=== PATIENT | male | born 1950 | race Caucasian/White ===

== ENCOUNTER 2018-01-28 09:00 | Inpatient (IN) ==
[2018-01-28] MEDS ORDERED: *HR* Dextrose 50 % in Water (Syg) 50 ML SYRINGE IVP ONE (09:14)
[2018-01-28] MEDS ORDERED: 0.9 % Sodium Chloride 1,000 ML IVC SCH (09:15)
[2018-01-28] MEDS ORDERED: *HR* Dextrose 50 % in Water (Syg) 50 ML SYRINGE ONE (09:16)
[2018-01-28] MEDS ORDERED: Tdap (Boostrix) Vaccine 0.5 ML SYRINGE IM ONE (09:18)
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
[2018-01-28 10:50] LABS: Basophils % 0.3 %; Eosinophils # 0.1 K/mcL (0.0-0.6); Eosinophils % 0.3 %; Hematocrit 43.8 % (37.5-50.1); Hemoglobin 13.8 g/dL (12.9-16.9); Lymphocytes # 0.5 K/mcL (0.6-4.6); Mean Corpuscular HGB Conc 31.5 g/dL (31.6-35.5); Mean Corpuscular Volume 85.5 fL (83.0-100.0); Mean Platelet Volume 9.3 fL (9.4-12.4); Monocytes # 1.1 K/mcL (0.0-1.3); Monocytes % 7.2 %; Neutrophils # 13.2 K/mcL (1.6-8.9); Platelet Count 283 K/mcL (140-400); Red Blood Count 5.12 M/mcL (4.19-5.50); Red Cell Distribution Width 14.7 % (11.5-14.5); Segmented Neutrophils % 88.2 %
[2018-01-28 10:56] LABS: Albumin 3.4 g/dL (3.5-5.7); Albumin/Globulin Ratio 0.9 (1.1-2.2); Bilirubin,Direct 0.1 mg/dL (0.0-0.2); Bilirubin,Indirect 0.2 mg/dL (0.0-1.2); Bilirubin,Total 0.3 mg/dL (0.3-1.0); Calcium 9.6 mg/dL (8.6-10.3); Globulin 3.6 g/dL (2.4-3.5); Potassium 3.9 mEq/L (3.5-5.1)
[2018-01-28 11:17] LABS: Thyroid Stimulating Hormone 2.945 mcIU/mL (0.340-5.600)
[2018-01-28 11:35] LABS: Bilirubin,Urine Negative (Negative); Blood,Urine Negative (Negative); Clarity,Urine Clear (Clear); Color,Urine Yellow (Yellow); Glucose,Urine (UA) Normal (Normal); Ketones,Urine Negative (Negative); Leukocyte Esterase,Urine Negative (Negative); Nitrite,Urine Negative (Negative); PH,Urine 6.5 pH Units (5.0-8.0); Protein,Urine 100 mg/dL (Neg-Trace); Specific Gravity,Urine 1.015 (1.010-1.025); Urobilinogen,Urine Normal (Normal)
[2018-01-28 11:38] LABS: Bacteria,Urine None Seen per hpf (None-Few); Hyaline Casts,Urine None Seen per lpf (None-Few); Squamous Epithelial Cell,Urine Few per lpf (None-Few); WBC,Urine 0-3 per hpf (0-3)
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
[2018-01-28] MEDS ORDERED: Dextrose Gel 15 GM/37.5 ML TUBE PO ONE (13:20)
[2018-01-28] MEDS ORDERED: D5% in Water 1,000 ML IVC PRN (13:27)
[2018-01-28] MEDS ORDERED: Dextrose Gel 15 GM/37.5 ML TUBE PO PRN ×2 (13:27)
[2018-01-28] MEDS ORDERED: *HR* Dextrose 50 % in Water (Syg) 50 ML SYRINGE IVP PRN (13:27)
[2018-01-28] MEDS ORDERED: Naloxone 0.4 MG/ML INJ IVP PRN (13:29)
[2018-01-28] MEDS ORDERED: Acetaminophen 325 MG TABLET PO PRN (13:29)
[2018-01-28] MEDS ORDERED: Ondansetron 4 MG/2 ML VIAL IVP PRN (13:29)
[2018-01-28] MEDS: 0.9 % Sodium Chloride 1,000 ML IVC SCH ×4 (13:35→15:49)
[2018-01-28] MEDS ORDERED: D5% in 0.9% NACL 1,000 ML IVC SCH (14:00)
[2018-01-28] MEDS: Insulin LISPRO 300 UNITS/3 ML VIAL SQ SCH ×2 (17:04→21:24)
[2018-01-28] MEDS: cloNIDine HCl 0.1 MG TABLET PO SCH (21:31)
[2018-01-28] MEDS: NEFAZODONE HCL 200 MG PO SCH (21:32)
[2018-01-29 05:46] LABS: Basophils # 0.1 K/mcL (0.0-0.2); Basophils % 0.7 %; Eosinophils # 0.2 K/mcL (0.0-0.6); Eosinophils % 3.1 %; Hematocrit 42.6 % (37.5-50.1); Hemoglobin 13.1 g/dL (12.9-16.9); Immature Granulocytes % 0.6 % (0-4); Immature Platelets 1.2 % (1.1-6.1); Lymphocytes # 0.9 K/mcL (0.6-4.6); Lymphocytes % 13.1 %; Mean Corpuscular HGB Conc 30.8 g/dL (31.6-35.5); Mean Corpuscular Hemoglobin 27.2 pg (28.0-33.3); Mean Corpuscular Volume 88.4 fL (83.0-100.0); Mean Platelet Volume 9.3 fL (9.4-12.4); Monocytes # 0.7 K/mcL (0.0-1.3); Monocytes % 10.7 %; Neutrophils # 4.8 K/mcL (1.6-8.9); Platelet Count 291 K/mcL (140-400); Red Blood Count 4.82 M/mcL (4.19-5.50); Segmented Neutrophils % 71.8 %
[2018-01-29 06:06] LABS: Calcium 9.1 mg/dL (8.6-10.3); Magnesium 1.5 mg/dL (1.6-2.6); Potassium 3.8 mEq/L (3.5-5.1)
[2018-01-29] MEDS: Levothyroxine 25 MCG TABLET PO SCH (06:45)
[2018-01-29] MEDS ORDERED: Insulin LISPRO 300 UNITS/3 ML VIAL SQ SCH (08:00)
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
[2018-01-29] MEDS: Insulin LISPRO 300 UNITS/3 ML VIAL SQ SCH ×6 (08:18→22:04)
[2018-01-29] MEDS: NEFAZODONE HCL 200 MG PO SCH (08:21)
[2018-01-29] MEDS: cloNIDine HCl 0.1 MG TABLET PO SCH ×2 (08:21→22:03)
[2018-01-29] MEDS: Nicotine 21 MG PATCH.TD24 TD SCH (08:21)
[2018-01-29] MEDS: amLODIPine 5 MG TABLET PO SCH (10:28)
[2018-01-29] MEDS: *HR* OxyCODONE/APAP 5/325 TABLET PO PRN (16:51)
[2018-01-30] MEDS: NEFAZODONE HCL 200 MG PO SCH ×3 (02:54→20:20)
[2018-01-30] MEDS: Levothyroxine 25 MCG TABLET PO SCH (05:32)
[2018-01-30] MEDS: *HR* OxyCODONE/APAP 5/325 TABLET PO PRN (05:43)
[2018-01-30 07:45] LABS: Calcium 9.3 mg/dL (8.6-10.3); Potassium 3.5 mEq/L (3.5-5.1)
[2018-01-30 08:24] LABS: Hematocrit 41.9 % (37.5-50.1); Hemoglobin 12.9 g/dL (12.9-16.9); Mean Corpuscular HGB Conc 30.8 g/dL (31.6-35.5); Mean Corpuscular Volume 87.8 fL (83.0-100.0); Mean Platelet Volume 9.1 fL (9.4-12.4); Platelet Count 283 K/mcL (140-400); Red Blood Count 4.77 M/mcL (4.19-5.50)
[2018-01-30] MEDS: Nicotine 21 MG PATCH.TD24 TD SCH (08:56)
[2018-01-30] MEDS: Insulin LISPRO 300 UNITS/3 ML VIAL SQ SCH ×7 (08:56→21:35)
[2018-01-30] MEDS: amLODIPine 5 MG TABLET PO SCH (08:56)
[2018-01-30] MEDS: cloNIDine HCl 0.1 MG TABLET PO SCH ×2 (08:57→20:20)
[2018-01-30] MEDS ORDERED: *HR* OxyCODONE/APAP 5/325 TABLET PO PRN (10:08)
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
[2018-01-30] MEDS ORDERED: Aminoglycoside Consult 1 EACH MC ONE (12:00)
--- NOTE | 2018-01-30 13:31 | Spinal Consult Note ---
Date of Encounter: 01/30/18 Time of Encounter: 13:29 Assessment and Plan (1) C7 cervical fracture Current Visit: Yes Status: Acute On exam he is a lying comfortably in bed with a cervical collar in place. Afebrile vital signs stable. He has minimal tenderness to palpation of the cervical spine. He fires all upper and lower extremity groups with good strength. He has a negative Rachana sign. He is neurovascularly intact with regard to his bilateral upper extremities. He has no clonus. CT scan of the cervical spine reveals a minimally displaced left C7 pedicle fracture extending into the lamina. There is no evidence of instability. The patient's cervical and thoracic CTs are consistent with diffuse idiopathic skeletal hyperostosis. Impression: 1) diffuse idiopathic skeletal hyperostosis 2) stable C7 vertebral fracture 3) associated rib fractures Plan: We will have the patient continue in a cervical collar. He should follow- up in the spine Center with me in 2 weeks to assess his clinical progress. I suggest rehabilitation for this patient on an outpatient basis either home health or [facility] facility. I would consider referral to neurology on an outpatient patient for his frequent falls. Should order in-house physical therapy for mobilization in brace, strengthening, and gait training. Qualifiers: Encounter type: initial encounter Fracture type: closed Fracture morphology: unspecified fracture morphology Fracture alignment: nondisplaced Qualified Code(s): S12.601A - Unspecified nondisplaced fracture of seventh cervical vertebra, initial encounter for closed fracture History of Present Illness Chief complaint: Multiple falls, C7 fracture, rib fractures HPI: Mr. Silveira is a 67 year old male Who has a history of frequent falls over the past year including one in the past week. He is unsure what precipitates the falls. He complains of some rib pain but no significant neck pain or radicular symptoms at this time. He denies any fevers, chills, photophobia, new onset weakness or radicular symptoms. According to his supervisor cook house and the patient he has been fairly inactive and poorly mobilizing. We are asked to see regarding management of C7 fracture. Past Med Surg Social Fam HX - Past Medical History Medical history: diabetes, hypertension, thyroid disease Psychiatric history: no psych history - Social History Smoking Status: Current every day smoker Smokeless Tobacco Status: No Alcohol use: none Drug use: none Medications and Allergies Atorvastatin [Lipitor] 10 mg PO HS 01/28/18 [History] Clorazepate Dipotassium [Tranxene T-Tab] 7.5 mg PO BID 01/28/18 [History] Cyclobenzaprine [Flexeril] 10 mg PO BID 01/28/18 [History] Insulin ASPART [NovoLOG] 40 unit SQ TIDWM 01/28/18 [History] Insulin Glargine [Lantus] 30 unit SQ BID 01/28/18 [History] Levothyroxine Sodium [Levo-T] 25 mcg PO DAILY 01/28/18 [History] Nefazodone HCl [Nefazodone HCl] 200 mg PO BID 01/28/18 [History] Pioglitazone HCl [Pioglitazone HCl] 30 mg PO DAILY 01/28/18 [History] Triamterene/HCTZ 37.5/25mg [Dyazide] 1 tab PO DAILY 01/28/18 [History] Zolpidem [Ambien] 10 mg PO HS 01/28/18 [History] cloNIDine HCl [Clonidine HCl] 0.2 mg PO BID 01/28/18 [History] 3 Allergy/AdvReac Type Severity Reaction Status Date / Time No Known Allergies Allergy Verified 12/04/17 19:26 Results - Labs Result Diagrams: 01/30/18 06:05 01/30/18 06:05 Labs: Abnormal lab results MCH 27.0 pg (28.0-33.3) L 01/30/18 06:05 MCHC 30.8 g/dL (31.6-35.5) L 01/30/18 06:05 RDW 15.0 % (11.5-14.5) H 01/30/18 06:05 MPV 9.1 fL (9.4-12.4) L 01/30/18 06:05 BUN 37 mg/dL (8-23) H 01/30/18 06:05 Creatinine 2.75 mg/dL (0.70-1.30) H 01/30/18 06:05 Est GFR ( Amer) 28 (> 60) L 01/30/18 06:05 Est GFR (Non-Af Amer) 23 (> 60) L 01/30/18 06:05 Glucose 118 mg/dL (70-105) H 01/30/18 06:05 POC Glucose 133 (58-89) H 01/29/18 11:56 Magnesium 1.5 mg/dL (1.6-2.6) L 01/29/18 05:05 Troponin I 0.04 ng/mL (< 0.04) H* 01/28/18 19:49 Albumin 3.4 g/dL (3.5-5.7) L 01/28/18 10:33 Globulin 3.6 g/dL (2.4-3.5) H 01/28/18 10:33 Albumin/Globulin Ratio 0.9 (1.1-2.2) L 01/28/18 10:33 Urine Protein 100 mg/dL (Neg-Trace) H 01/28/18 11:24 Urine Microscopic RBC 3-5 per hpf (0-3) H 01/28/18 11:24 H & H 01/30/18 Range/Units 06:05 Hgb 12.9 (12.9-16.9) g/dL Hct 41.9 (37.5-50.1) % All other labs normal. Consult Discharge Plan - Plan Referrals: Tima Bryant MD [Primary Care Provider] - Nata Kang CNP [Family Provider] -
[2018-01-30 18:32] LABS: Hemoglobin A1C 5.5 %
[2018-01-30] MEDS ORDERED: *HR* Metoprolol 5 MG/5 ML VIAL IVP ONE (19:04)
[2018-01-30 22:50] LABS: Acinetobacter baumannii by PCR Not Detected (Not Detect); Candida albicans by PCR Not Detected (Not Detect); Candida glabrata by PCR Not Detected (Not Detect); Candida krusei by PCR Not Detected (Not Detect); Candida parapsilosis by PCR Not Detected (Not Detect); Candida tropicalis by PCR Not Detected (Not Detect); Enterococcus by PCR Not Detected (Not Detect); Escherichia coli by PCR Not Detected (Not Detect); Klebsiella oxytoca by PCR Not Detected (Not Detect); Klebsiella pneumoniae by PCR Not Detected (Not Detect); Pseudomonas aeruginosa by PCR Not Detected (Not Detect); Serratia marcescens by PCR Not Detected (Not Detect); Staphylococcus aureus by PCR Not Detected (Not Detect); Streptococcus agalactiae(B)PCR Not Detected (Not Detect); Streptococcus by PCR Not Detected (Not Detect); Streptococcus pneumoniae PCR Not Detected (Not Detect); Streptococcus pyogenes (A) PCR Not Detected (Not Detect); blaKPC Carbapenem-Resist Gene Not Detected (Not Detect); mecA Methicillin-Resist Gene Not Detected (Not Detect); vanA/B Vancomycin-Resist Genes Not Detected (Not Detect)
--- NOTE | 2018-01-30 23:09 | Event Note ---
Date of Encounter: 01/30/18 Time of Encounter: 23:05 Patient's microbiology report returned from ordered blood cultures and is positive for gram positive Cocci. IVPB Vancomycin w/pharmacy dosing ordered to begin tonight at 23:45. Pharmacy to dose d/t pts. current renal dysfunction. Will adjust abx coverage based on final culture and sensitivity report. Continue to monitor pt. and f/u labs.
[2018-01-31] MEDS: Levothyroxine 25 MCG TABLET PO SCH (05:21)
[2018-01-31 05:32] LABS: Calcium 9.6 mg/dL (8.6-10.3); Potassium 4.8 mEq/L (3.5-5.1)
[2018-01-31] MEDS: Insulin LISPRO 300 UNITS/3 ML VIAL SQ SCH ×7 (08:09→21:08)
[2018-01-31] MEDS: Nicotine 21 MG PATCH.TD24 TD SCH (08:10)
[2018-01-31] MEDS: cloNIDine HCl 0.1 MG TABLET PO SCH ×2 (08:10→21:10)
[2018-01-31] MEDS: amLODIPine 5 MG TABLET PO SCH (08:10)
[2018-01-31] MEDS: NEFAZODONE HCL 200 MG PO SCH ×2 (08:11→21:08)
[2018-01-31] MEDS: cefTRIAXone 2,000 MG in Water for inj. (sterile) 20 ML 20 ML IVP SCH (11:41)
[2018-01-31] MEDS ORDERED: *HR* Metoprolol 5 MG/5 ML VIAL IVP ONE (17:13)
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
--- NOTE | 2018-01-31 19:59 | Electrocardiograph Report ---
[address] [address] Test Date: 2018-01-28 Pat Name: Oren Silveira Department: 103 Room: 2A63 Gender: M Systems Program Manager: BREANNA : 1950 Requested By: Oral Barton Order Number: [id number] Reading MD: Sandra Pressley Measurements Intervals [place] Rate: 89 P: -5 MO: 188 QRS: -17 QRSD: 94 T: 36 QT: 388 QTc: 435 Interpretive Statements SINUS RHYTHM WITH OCCASIONAL VENTRICULAR PREMATURE COMPLEXES WITH OCCASIONAL SUPRAVENTRICULAR PREMATURE COMPLEXES Electronically Signed On 01-31-2018 19:57:42 EST by Sandra Pressley
[2018-02-01] MEDS: Levothyroxine 25 MCG TABLET PO SCH (06:08)
[2018-02-01 07:53] LABS: Calcium 9.7 mg/dL (8.6-10.3); Potassium 3.3 mEq/L (3.5-5.1)
[2018-02-01] MEDS: Nicotine 21 MG PATCH.TD24 TD SCH (08:18)
[2018-02-01] MEDS: amLODIPine 5 MG TABLET PO SCH (08:19)
[2018-02-01] MEDS: Insulin LISPRO 300 UNITS/3 ML VIAL SQ SCH ×7 (08:19→22:45)
[2018-02-01] MEDS: cloNIDine HCl 0.1 MG TABLET PO SCH ×2 (08:19→22:45)
[2018-02-01] MEDS: NEFAZODONE HCL 200 MG PO SCH ×2 (08:20→22:46)
[2018-02-01 08:29] LABS: Basophils % 0.4 %; Eosinophils # 0.2 K/mcL (0.0-0.6); Eosinophils % 1.9 %; Immature Granulocytes % 0.5 % (0-4); Lymphocytes % 12.8 %; Mean Corpuscular HGB Conc 32.2 g/dL (31.6-35.5); Mean Corpuscular Hemoglobin 27.2 pg (28.0-33.3); Mean Corpuscular Volume 84.4 fL (83.0-100.0); Mean Platelet Volume 9.1 fL (9.4-12.4); Monocytes # 0.7 K/mcL (0.0-1.3); Monocytes % 9.1 %; Neutrophils # 6.1 K/mcL (1.6-8.9); Platelet Count 278 K/mcL (140-400); Red Blood Count 5.33 M/mcL (4.19-5.50); Red Cell Distribution Width 14.9 % (11.5-14.5); Segmented Neutrophils % 75.3 %
[2018-02-01] MEDS ORDERED: Potassium Chloride Elixir 20 MEQ/15 ML UDC PO ONE (08:48)
[2018-02-01 09:33] LABS: Hemoglobin 14.5 g/dL (12.9-16.9)
[2018-02-01] MEDS: cefTRIAXone 2,000 MG in Water for inj. (sterile) 20 ML 20 ML IVP SCH (11:54)
--- NOTE | 2018-02-01 19:39 | Electrocardiograph Report ---
[place] [address] Test Date: 2018-01-31 Pat Name: Oren Silveira Department: 112 Room: 2A63 Gender: M Gastroenterology Manager: : 1950 Requested By: Ray Lim Order Number: [id number] Reading MD: Jay Rene MD Measurements Intervals [place] Rate: 89 P: NE: 0 QRS: -18 QRSD: 94 T: 21 QT: 360 QTc: 407 Interpretive Statements SINUR RHYTHM W FREQUENT PAC BASELINE ARTIFACT Electronically Signed On 02-01-2018 19:37:43 EST by Jay Rene MD
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
[2018-02-02] MEDS: Levothyroxine 25 MCG TABLET PO SCH (05:12)
[2018-02-02 05:46] LABS: Calcium 9.5 mg/dL (8.6-10.3); Magnesium 1.8 mg/dL (1.6-2.6); Potassium 4.3 mEq/L (3.5-5.1)
[2018-02-02] MEDS: Insulin LISPRO 300 UNITS/3 ML VIAL SQ SCH ×6 (08:28→16:13)
[2018-02-02] MEDS: cefTRIAXone 2,000 MG in Water for inj. (sterile) 20 ML 20 ML IVP SCH (11:28)
[2018-02-02] MEDS: Nicotine 21 MG PATCH.TD24 TD SCH (11:30)
[2018-02-02] MEDS: amLODIPine 5 MG TABLET PO SCH (11:58)
[2018-02-02] MEDS: cloNIDine HCl 0.1 MG TABLET PO SCH (11:58)
[2018-02-02 13:13] VITALS: BP 134/75
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
--- NOTE | 2018-02-03 14:39 | Electrocardiograph Report ---
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
--- NOTE | 2018-02-03 15:26 | Electrocardiograph Report ---
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
--- NOTE | 2018-02-03 16:10 | Electrocardiograph Report ---
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
== END 2018-02-02 17:51 | DRG 184 ==
LOC: 2ANU 09:00 → EMEROO 09:00 → 2ANU 12:16 → SUATTDRO 13:29
PROVIDERS: ADMIT Internal Medicine; ATTEND Internal Medicine

== ENCOUNTER 2019-07-02 06:13 | Inpatient (IN) ==
[2019-07-02] MEDS ORDERED: *HR* LORazepam 2 MG/ML VIAL IM ONE ×2 (06:51→10:56)
--- NOTE | 2019-07-02 06:51 | Emergency Department Note ---
Disposition Clinical Impression: Fall with injury Qualifiers: Encounter type: initial encounter Qualified Code(s): W19.XXXA - Unspecified fall, initial encounter Disposition: Still a Patient Condition: Serious Time of Disposition: 07:11 Fall HPI - General Stated Complaint: fall Time Seen by Provider: 07/02/19 06:22 Source: patient, EMS Mode of arrival: EMS Limitations: altered mental status Nursing Notes Reviewed: Yes Vital Signs Reviewed: Yes - History of Present Illness HPI Narrative: Patient is a 68-year-old male past medical history of COPD, diabetes, dementia, blindness presenting for 2 day history of increasing falls. EMS states that they have not of the patient's house frequently in the past for similar presentations the patient has always refused transport. EMS notes a however this time the patient was not alert to place or time and so he was transported for his own well-being to the hospital. Patient was unable to name the year, the president or his location to EMS. Upon initial evaluation hospital the patient seems to be mildly agitated and is tangential to conversation. The patient is unable to say his location or the year, he denies any pain any nausea vomiting states that he does not want to be here and that he is not going to pay for any treatment. Pt Subjective Complaint: fall Onset (ago): day(s) Fall From: standing Fall Witnessed: yes Place Fall Occurred: home Loss of Consciousness: none Prolonged Down Time?: no Symptoms Prior to Fall: none Context: tripped/slipped Location of injury: head - Related Data Home Medications Medication Instructions Recorded Confirmed Atorvastatin [Lipitor] 20 mg PO DAILY 01/28/18 05/25/19 Insulin ASPART [NovoLOG] 35 unit SQ BIDWM 01/28/18 02/26/19 Levothyroxine Sodium [Levo-T] 25 mcg PO DAILY 01/28/18 02/26/19 Fluticasone Propionate Nasal 2 spray IN BID 02/26/19 02/26/19 [Flonase] Insulin Glargine [Lantus] 16 units SQ BID 02/26/19 02/26/19 Pioglitazone HCl 30 mg PO DAILY 02/26/19 02/26/19 Brimonidine Tartrate/Timolol 5 ml OP 05/25/19 [Combigan 0.2%-0.5% Eye Drops] Brimonidine Tartrate/Timolol 5 ml OP DAILY 05/25/19 05/25/19 [Combigan 0.2%-0.5% Eye Drops] Brinzolamide 1% [Azopt] 1 drop LEFT EYE BID 05/25/19 05/25/19 Levothyroxine [Synthroid] 25 mcg PO 0630 05/25/19 05/25/19 Sertraline [Zoloft] 50 mg PO DAILY 05/25/19 05/25/19 Previous Rx's Medication Instructions Recorded Insulin LISPRO [HumaLOG] 0 units SQ HS vial 03/05/19 Insulin LISPRO [HumaLOG] 0 units SQ TIDAC vial 03/05/19 Nicotine Patch [Nicoderm] 21 mg TD DAILY patch.td24 03/05/19 Ondansetron [Zofran] 8 mg IVP Q6HR PRN vial 03/05/19 Vitamin B Complex/Vit C/Vit E 1 each PO DAILY tablet 03/05/19 [Stresstab] Ascorbic Acid [Vitamin C] 500 mg PO 0630 #30 tablet 05/29/19 Carvedilol [Coreg] 25 mg PO BID #60 tablet 05/29/19 Ferrous Sulfate 325 mg PO 0630 #30 tablet 05/29/19 Quetiapine Fumarate [Seroquel] 100 mg PO HS #45 tablet 05/29/19 amLODIPine [Norvasc] 5 mg PO DAILY #30 tablet 05/29/19 cloNIDine HCl [CloNIDine HCl] 0.1 mg PO Q8H #90 tablet 05/29/19 traZODone [TraZODone] 50 mg PO HS #30 tablet 05/29/19 Allergies Allergy/AdvReac Type Severity Reaction Status Date / Time Buspirone Allergy Intermediate Confusion Verified 04/21/19 15:13 venlafaxine AdvReac Confusion Verified 04/21/19 15:15 Review of Systems: Patient denies any pain, chest pain shortness of breath nausea vomiting any trauma at this time. Patient may not be a reliable source as he appears to be confused and is tangential questioning. Limitations: ROS unobtainable due to patients medical condition Fall PMH - Past Medical History Medical history: Reports: CHF, COPD, diabetes, hypertension, renal disease, thyroid disease Surgical history: Reports: appendectomy Psychiatric history: Reports: anxiety, depression - Social History Smoking Status: Former smoker Alcohol use: Reports: none Drug use: Reports: none Physical Exam Constitutional: Patient appears to be confused and mildly agitated, no overt signs of trauma Neuro: GCS 15, no overt focal neurological deficits Head: Atraumatic, normocephalic Eyes: Patient is noted to be blind, external ocular muscles intact pupils appear to be equal round reactive to light. There is no scleral icterus or conjunctival injection. Neck: Trachea midline without deviation. Anterior neck is supple without swelling. *Chest: Symmetric chest wall rise *Heart: Cardiac rhythm and rate are regular with S1 and S2 , no S3 or S4 appreciated, no murmurs, gallops, rubs, or clicks. *Lungs: Lungs are clear to auscultation bilaterally, without accessory muscle use or prolonged expiratory phase. No wheezes, rhonchi or stridor appreciated. Abdomen: Abdomen is flat, soft to palpation, normal bowel sounds. No abdominal bruit auscultated. Non-distended, non-rigid, no organomegaly, no ascites appreciated. No pulsatile mass, no tenderness or guarding to palpation in all four quadrants, no rebound Extremities: 1+ pitting edema noted to bilateral lower extremities, there is a rapid noted to the right lower extremity which is stated to be due to a pressure ulcer. Pulses/motor intact in extremities. Psychiatric exam: Patient appears confused and mildly agitated. Integumentary: warm, dry, intact, normal color. No rash, cyanosis, diaphoresis, erythema, or pallor - General Limitations: altered mental status General appearance: alert, other (He was confused, maybe baseline dementia) Course Course Narrative: Patient noted to be alert person only he does not have capacity for medical decision making at this point. He is refusing all further care. We will give 2 mg of IM Ativan at this time in order to help manage the patient's agitation. Proceed with plan of care to include basic labs, CT scan of the head chest x-ray EKG/old EKG. Vital Signs Temperature 98.8 F 07/02/19 06:16 Pulse Rate 64 07/02/19 06:16 Respiratory Rate 16 07/02/19 06:16 Blood Pressure 114/84 07/02/19 06:16 O2 Sat by Pulse Oximetry 99 07/02/19 06:16 Temperature 98.8 F 07/02/19 06:16 Pulse Rate 64 08/05/19 06:16 Respiratory Rate 16 07/02/19 06:16 Blood Pressure 114/84 07/02/19 06:16 O2 Sat by Pulse Oximetry 99 07/02/19 06:16 Oxygen Delivery Oxygen Delivery Room Air Fall - MDM Narrative Medical decision making narrative: Patient care signed out to attending physician Dr. Trinidad the end of my shift. Please see documentation by this physician for further evaluation, management and final disposition. The patient's hemodynamics stable time of transfer of care. - EKG Data EKG results narrative: The patients EKG shows a atrial fibrillation at a rate of 61 beats per minute, a QRS duration of 91 milliseconds, a QT/QTc interval of 423 / 427 milliseconds respectively. There are no significant ST segment elevations, depressions, pathologic Q waves, abnormal T-wave inversions, nor any other signs of acute ischemic change. This EKG that was performed today is generally consistent in morphology with prior EKG that was performed on 03/02/2019.
--- NOTE | 2019-07-02 07:07 | Emergency Department Note ---
Disposition Clinical Impression: History of diabetes mellitus, Frail elderly, History of psychosis, Visual field defect of left eye, Renal failure, Acute kidney injury, Confusion, Elevated troponin, Anemia, Brain lesion, Leg erythema Altered mental status Qualifiers: Altered mental status type: unspecified Qualified Code(s): R41.82 - Altered mental status, unspecified Disposition: Admitted As Inpatient Condition: Serious Referrals: NONE,PCP [Primary Care Provider] - Forms: ED Satisfaction Letter Time of Disposition: 11:21 General Adult HPI - General Chief complaint: ED Fall Stated complaint: fall Time Seen by Provider: 07/02/19 06:22 Source: patient, EMS Mode of arrival: EMS Limitations: altered mental status - History of Present Illness HPI Narrative: Patient presents with acute confusion, transferred to ut, multiple falls reported: On my questioning the patient denies pain. He denies head pain neck pain back pain chest pain or abdominal pain. No upper or lower extremity pain or injury. He has had no difficulty moving the arms or legs independently. The patient states he has been admitted to the hospital recently. He states he takes insulin and is diabetic. The patient has no specific complaints. See initial H&P for detail. Pain Scale: 0 - Related Data Home Medications Medication Instructions Recorded Confirmed Atorvastatin [Lipitor] 20 mg PO DAILY 01/28/18 05/25/19 Insulin ASPART [NovoLOG] 35 unit SQ BIDWM 01/28/18 02/26/19 Levothyroxine Sodium [Levo-T] 25 mcg PO DAILY 01/28/18 02/26/19 Fluticasone Propionate Nasal 2 spray IN BID 02/26/19 02/26/19 [Flonase] Insulin Glargine [Lantus] 16 units SQ BID 02/26/19 02/26/19 Pioglitazone HCl 30 mg PO DAILY 02/26/19 02/26/19 Brimonidine Tartrate/Timolol 5 ml OP 05/25/19 [Combigan 0.2%-0.5% Eye Drops] Brimonidine Tartrate/Timolol 5 ml OP DAILY 05/25/19 05/25/19 [Combigan 0.2%-0.5% Eye Drops] Brinzolamide 1% [Azopt] 1 drop LEFT EYE BID 05/25/19 05/25/19 Levothyroxine [Synthroid] 25 mcg PO 0605/25/1919 Sertraline [Zoloft] 50 mg PO DAILY 05/25/19 05/25/19 Previous Rx's Medication Instructions Recorded Insulin LISPRO [HumaLOG] 0 units SQ HS vial 03/05/19 Insulin LISPRO [HumaLOG] 0 units SQ TIDAC vial 03/05/19 Nicotine Patch [Nicoderm] 21 mg TD DAILY patch.td24 03/05/19 Ondansetron [Zofran] 8 mg IVP Q6HR PRN vial 03/05/19 Vitamin B Complex/Vit C/Vit E 1 each PO DAILY tablet 03/05/19 [Stresstab] Ascorbic Acid [Vitamin C] 500 mg PO 0630 #30 tablet 05/29/19 Carvedilol [Coreg] 25 mg PO BID #60 tablet 05/29/19 Ferrous Sulfate 325 mg PO 0630 #30 tablet 05/29/19 Quetiapine Fumarate [Seroquel] 100 mg PO HS #45 tablet 05/29/19 amLODIPine [Norvasc] 5 mg PO DAILY #30 tablet 05/29/19 cloNIDine HCl [CloNIDine HCl] 0.1 mg PO Q8H #90 tablet 05/29/19 traZODone [TraZODone] 50 mg PO HS #30 tablet 05/29/19 Allergies Allergy/AdvReac Type Severity Reaction Status Date / Time Buspirone Allergy Intermediate Confusion Verified 04/21/19 15:13 venlafaxine AdvReac Confusion Verified 04/21/19 15:15 All systems ED: reviewed and negative except as stated. Past Medical History - Past Medical History Medical history: Reports: CHF, COPD, diabetes, hypertension, renal disease, thyroid disease Surgical history: Reports: appendectomy Psychiatric history: Reports: anxiety, depression - Social History Smoking Status: Former smoker Smokeless Tobacco Status: No Alcohol use: Reports: none Drug use: Reports: none Physical Exam - General Limitations: altered mental status, other (The patient is unable to identify location. He is agitated and poorly cooperative.) General appearance: alert, in no apparent distress - Head Head exam: atraumatic, normocephalic, normal inspection - Eye Eye exam: Present: other (Chronic left offkilter defects noted, the right eye is generally responsive and pupil reactive, he is able to visualize 2 fingers when held up.) - ENT ENT exam: normal exam, normal oropharynx, mucous membranes moist, TM's normal bilaterally, normal external ear exam - Neck Neck exam: Present: normal inspection, full ROM, trachea midline. Absent: tenderness - Chest Chest inspection: Present: normal inspection, symmetric chest wall rise. Absent: tenderness - Respiratory Respiratory exam: Present: normal lung sounds bilaterally. Absent: respiratory distress, prolonged expiratory phase - Cardiovascular Cardiovascular exam: Present: regular rate, normal rhythm, normal heart sounds - Abdominal Exam Abdominal exam: Present: soft, Non-Tender, normal bowel sounds, other (An area of focal bruising/hematoma, the patient states this is where he injects insulin. ). Absent: tenderness, distention, guarding, rebound, rigidity - Extremities Exam Extremities exam: Present: full ROM, normal capillary refill, other (The patie nt's right leg was wrapped, undressed the area, there is some chronic skin discoloration without valentin ulcer or cellulitic change. All 4 extremities are warm and well-perfused supple without evidence of significant trauma.). Absent: tenderness, pedal edema, joint swelling, calf tenderness - Expanded Lower Extremity Exam Lower leg exam: Absent: Homans' sign Neurovascular/Tendon exam: Present: normal capillary refill. Absent: motor deficit, sensory deficit, tendon deficit, extremity cold to touch, pallor - Back Exam Back exam: Present: normal inspection, full ROM. Absent: tenderness, CVA tenderness (R), CVA tenderness (L), vertebral tenderness - Neurological Exam Neurological exam: Present: alert, CN II-XII intact, other (Chronic left ocular defect noted, the patient is not oriented to place, he tells me his at [facility].). Absent: oriented X3, motor sensory deficit - Psychiatric Psychiatric exam: Present: agitated - Skin Skin exam: Present: warm, dry, intact, normal color Course Course Narrative: The patient has a history of psychosis, he has been agitated emergency department and uncooperative. He was initially given Ativan in the emergency department. Haldol and benztropine ordered in order to provide for patient c omfort and safety. Vital Signs Temperature 98.8 F 07/02/19 06:16 Pulse Rate 64 07/02/19 06:16 Respiratory Rate 16 07/02/19 06:16 Blood Pressure 114/84 07/02/19 06:16 O2 Sat by Pulse Oximetry 99 07/02/19 06:16 Temperature 98.8 F 07/02/19 06:16 Pulse Rate 67 07/02/19 07:51 Respiratory Rate 18 07/02/19 07:51 Blood Pressure 153/73 07/02/19 07:51 O2 Sat by Pulse Oximetry 97 07/02/19 07:51 Oxygen Delivery Oxygen Delivery Room Air Medical Decision Making - MDM Narrative Medical decision making narrative: The patient is elderly, he has a history of diabetes and psychosis as well as chronic renal failure. He appears to have an element of acute kidney injury and is no longer oriented to place. He appears to be confused. He was somewhat agitated on arrival was given Ativan. Increasing agitation was noted and Haldol and benztropine were administered to protect the patient from harming himself or other people. Based on the patient's age, abnormal laboratory studies and multiple medical comorbidities including psychiatric disease with acute confusion, I thought it would be appropriate to admit the patient the hospital. The patient is incapable of personal medical decision making at this time. I do not believe it is safe to discharge the patient home. IV fluid was given. The patient was continually monitored in the emergency department. Troponin minimally elevated, he does not complain of chest pain. Aspirin ordered. I discussed the case with the hospitalist on-call who has accepted the patient to their care. - Lab Data Lab results reviewed: Yes I reviewed the patient's lab results. Result diagrams: 07/02/19 08:38 07/02/19 08:38 Lab Results 07/02/19 07/02/19 07/02/19 Range/Units 07:51 07:51 08:38 WBC 8.1 (4.3-11.1) K/mcL RBC 3.28 L (4.19-5.50) M/mcL Hgb 8.7 L (12.9-16.9) g/dL Hct 28.1 L (37.5-50.1) % MCV 85.7 (83.0-100.0) fL MCH 26.5 L (28.0-33.3) pg MCHC 31.0 L (31.6-35.5) g/dL RDW 16.2 H (11.5-14.5) % Plt Count 209 (140-400) K/mcL MPV 8.9 L (9.4-12.4) fL Immature Gran % 1.6 (0-4) % Seg Neutrophils % 76.1 % Lymphocytes % 12.5 % Monocytes % 8.9 % Eosinophils % 0.7 % Basophils % 0.2 % Neutrophils # 6.1 (1.6-8.9) K/mcL Lymphocytes # 1.0 (0.6-4.6) K/mcL Monocytes # 0.7 (0.0-1.3) K/mcL Eosinophils # 0.1 (0.0-0.6) K/mcL Basophils # 0.0 (0.0-0.2) K/mcL PT (9.4-12.1) Seconds INR APTT (26.0-36.0) Seconds Sodium (136-145) mEq/L Potassium (3.5-5.1) mEq/L Chloride (98-107) mEq/L Carbon Dioxide (23-29) mEq/L BUN (8-23) mg/dL Creatinine (0.70-1.30) mg/dL Est GFR ( Amer) (> 60) Est GFR (Non-Af Amer) (> 60) BUN/Creatinine Ratio (6-26) Glucose (70-105) mg/dL Calculated Osmolality (280-300) Lactic Acid (0.5-2.2) mmol/L Calcium (8.6-10.3) mg/dL Total Bilirubin (0.3-1.0) mg/dL Direct Bilirubin (0.0-0.2) mg/dL Indirect Bilirubin (0.0-1.2) mg/dL AST (13-39) Units/L ALT (7-52) Units/L Alkaline Phosphatase (34-104) Units/L Ammonia (16-53) mcmol/L Troponin I (< 0.04) ng/mL C-Reactive Protein (Less than 10) mg/L Serum Total Protein (6.4-8.9) g/dL Albumin (3.5-5.7) g/dL Globulin (2.4-3.5) g/dL Albumin/Globulin Ratio (1.1-2.2) Urine Color Yellow (Yellow) Urine Clarity Clear (Clear) Urine pH 7.0 (5.0-8.0) pH Units Ur Specific [place] 1.014 (1.010-1.025) Urine Protein >=300 H (Neg-Trace) mg/dL Urine Glucose (UA) 250 H (Normal) mg/dL Urine Ketones Negative (Negative) mg/dL Urine Blood Negative (Negative) Urine Nitrite Negative (Negative) Urine Bilirubin Negative (Negative) Urine Urobilinogen Normal (Normal) mg/dL Ur Leukocyte Esterase Negative (Negative) Urine Microscopic RBC 0-3 (0-3) per hpf Urine Microscopic WBC 0-3 (0-3) per hpf Ur Squamous Epith Cells Many H (None-Few) per lpf Urine Bacteria None Seen (None-Few) per hpf Hyaline Casts None Seen (None-Few) per lpf Ur Culture Indicated? NO (NO) Salicylates (15.0-30.0) mg/dL Urine Opiates Screen Negative (Tbglaf=925) ng/mL Ur Buprenorphine Scrn Negative (Cutoff=5) ng/mL Acetaminophen (10-20) mcg/mL Ur Barbiturates Screen Negative (Aqbqgn=033) ng/mL Ur Phencyclidine Scrn Negative (Cutoff=25) ng/mL Ur Amphetamines Screen Negative (Rmkcga=0897) ng/mL U Benzodiazepines Scrn Negative (Xhsgyg=348) ng/mL Urine Cocaine Screen Negative (Cutoff= 300) ng/mL U Marijuana (THC) Screen Negative (Cutoff = 50) ng/mL Ur Drug Screen Interp See Below Ethyl Alcohol (Less than 10) mg/dL 07/02/19 07/02/19 07/02/19 Range/Units 08:38 08:38 08:38 WBC (4.3-11.1) K/mcL RBC (4.19-5.50) M/mcL Hgb (12.9-16.9) g/dL Hct (37.5-50.1) % MCV (83.0-100.0) fL MCH (28.0-33.3) pg MCHC (31.6-35.5) g/dL RDW (11.5-14.5) % Plt Count (140-400) K/mcL MPV (9.4-12.4) fL Immature Gran % (0-4) % Seg Neutrophils % % Lymphocytes % % Monocytes % % Eosinophils % % Basophils % % Neutrophils # (1.6-8.9) K/mcL Lymphocytes # (0.6-4.6) K/mcL Monocytes # (0.0-1.3) K/mcL Eosinophils # (0.0-0.6) K/mcL Basophils # (0.0-0.2) K/mcL PT 10.8 (9.4-12.1) Seconds INR 1.0 APTT 28.6 (26.0-36.0) Seconds Sodium 135 L (136-145) mEq/L Potassium 4.3 (3.5-5.1) mEq/L Chloride 108 H (98-107) mEq/L Carbon Dioxide 23 (23-29) mEq/L BUN 37 H (8-23) mg/dL Creatinine 4.16 H (0.70-1.30) mg/dL Est GFR ( Amer) 17 L (> 60) Est GFR (Non-Af Amer) 14 L (> 60) BUN/Creatinine Ratio 9 (6-26) Glucose 193 H (70-105) mg/dL Calculated Osmolality 294 (280-300) Lactic Acid (0.5-2.2) mmol/L Calcium 8.7 (8.6-10.3) mg/dL Total Bilirubin 0.2 L (0.3-1.0) mg/dL Direct Bilirubin 0.0 (0.0-0.2) mg/dL Indirect Bilirubin 0.2 (0.0-1.2) mg/dL AST 12 L (13-39) Units/L ALT 12 (7-52) Units/L Alkaline Phosphatase 88 (34-104) Units/L Ammonia 30 (16-53) mcmol/L Troponin I (< 0.04) ng/mL C-Reactive Protein (Less than 10) mg/L Serum Total Protein 5.7 L (6.4-8.9) g/dL Albumin 3.0 L (3.5-5.7) g/dL Globulin 2.7 (2.4-3.5) g/dL Albumin/Globulin Ratio 1.1 (1.1-2.2) Urine Color (Yellow) Urine Clarity (Clear) Urine pH (5.0-8.0) pH Units Ur Specific [place] (1.010-1.025) Urine Protein (Neg-Trace) mg/dL Urine Glucose (UA) (Normal) mg/dL Urine Ketones (Negative) mg/dL Urine Blood (Negative) Urine Nitrite (Negative) Urine Bilirubin (Negative) Urine Urobilinogen (Normal) mg/dL Ur Leukocyte Esterase (Negative) Urine Microscopic RBC (0-3) per hpf Urine Microscopic WBC (0-3) per hpf Ur Squamous Epith Cells (None-Few) per lpf Urine Bacteria (None-Few) per hpf Hyaline Casts (None-Few) per lpf Ur Culture Indicated? (NO) Salicylates (15.0-30.0) mg/dL Urine Opiates Screen (Haelok=229) ng/mL Ur Buprenorphine Scrn (Cutoff=5) ng/mL Acetaminophen (10-20) mcg/mL Ur Barbiturates Screen (Okqgrl=089) ng/mL Ur Phencyclidine Scrn (Cutoff=25) ng/mL Ur Amphetamines Screen (Nvqymm=8478) ng/mL U Benzodiazepines Scrn (Iqxelm=220) ng/mL Urine Cocaine Screen (Cutoff= 300) ng/mL U Marijuana (THC) Screen (Cutoff = 50) ng/mL Ur Drug Screen Interp Ethyl Alcohol (Less than 10) mg/dL 07/02/19 07/02/19 Range/Units 08:38 08:38 WBC (4.3-11.1) K/mcL RBC (4.19-5.50) M/mcL Hgb (12.9-16.9) g/dL Hct (37.5-50.1) % MCV (83.0-100.0) fL MCH (28.0-33.3) pg MCHC (31.6-35.5) g/dL RDW (11.5-14.5) % Plt Count (140-400) K/mcL MPV (9.4-12.4) fL Immature Gran % (0-4) % Seg Neutrophils % % Lymphocytes % % Monocytes % % Eosinophils % % Basophils % % Neutrophils # (1.6-8.9) K/mcL Lymphocytes # (0.6-4.6) K/mcL Monocytes # (0.0-1.3) K/mcL Eosinophils # (0.0-0.6) K/mcL Basophils # (0.0-0.2) K/mcL PT (9.4-12.1) Seconds INR APTT (26.0-36.0) Seconds Sodium (136-145) mEq/L Potassium (3.5-5.1) mEq/L Chloride (98-107) mEq/L Carbon Dioxide (23-29) mEq/L BUN (8-23) mg/dL Creatinine (0.70-1.30) mg/dL Est GFR ( Amer) (> 60) Est GFR (Non-Af Amer) (> 60) BUN/Creatinine Ratio (6-26) Glucose (70-105) mg/dL Calculated Osmolality (280-300) Lactic Acid 0.7 (0.5-2.2) mmol/L Calcium (8.6-10.3) mg/dL Total Bilirubin (0.3-1.0) mg/dL Direct Bilirubin (0.0-0.2) mg/dL Indirect Bilirubin (0.0-1.2) mg/dL AST (13-39) Units/L ALT (7-52) Units/L Alkaline Phosphatase (34-104) Units/L Ammonia (16-53) mcmol/L Troponin I 0.05 H* (< 0.04) ng/mL C-Reactive Protein 9 (Less than 10) mg/L Serum Total Protein (6.4-8.9) g/dL Albumin (3.5-5.7) g/dL Globulin (2.4-3.5) g/dL Albumin/Globulin Ratio (1.1-2.2) Urine Color (Yellow) Urine Clarity (Clear) Urine pH (5.0-8.0) pH Units Ur Specific [place] (1.010-1.025) Urine Protein (Neg-Trace) mg/dL Urine Glucose (UA) (Normal) mg/dL Urine Ketones (Negative) mg/dL Urine Blood (Negative) Urine Nitrite (Negative) Urine Bilirubin (Negative) Urine Urobilinogen (Normal) mg/dL Ur Leukocyte Esterase (Negative) Urine Microscopic RBC (0-3) per hpf Urine Microscopic WBC (0-3) per hpf Ur Squamous Epith Cells (None-Few) per lpf Urine Bacteria (None-Few) per hpf Hyaline Casts (None-Few) per lpf Ur Culture Indicated? (NO) Salicylates < 2.5 L (15.0-30.0) mg/dL Urine Opiates Screen (Ggisvp=508) ng/mL Ur Buprenorphine Scrn (Cutoff=5) ng/mL Acetaminophen < 10 L (10-20) mcg/mL Ur Barbiturates Screen (Xridko=988) ng/mL Ur Phencyclidine Scrn (Cutoff=25) ng/mL Ur Amphetamines Screen (Mmcnms=7433) ng/mL U Benzodiazepines Scrn (Oliyjh=167) ng/mL Urine Cocaine Screen (Cutoff= 300) ng/mL U Marijuana (THC) Screen (Cutoff = 50) ng/mL Ur Drug Screen Interp Ethyl Alcohol < 10 (Less than 10) mg/dL - Radiology Data Radiology results reviewed: Yes I reviewed the patient's radiology results.
[2019-07-02] MEDS ORDERED: 0.9 % Sodium Chloride 1,000 ML IVC ONE (07:08)
--- NOTE | 2019-07-02 07:33 | Emergency Department Note ---
Disposition Clinical Impression: Fall with injury Qualifiers: Encounter type: initial encounter Qualified Code(s): W19.XXXA - Unspecified fall, initial encounter Altered mental status Qualifiers: Altered mental status type: unspecified Qualified Code(s): R41.82 - Altered mental status, unspecified Disposition: Still a Patient Condition: Serious Forms: ED Satisfaction Letter Time of Disposition: 07:30 General Adult HPI - General Chief complaint: ED Fall Stated complaint: fall Time Seen by Provider: 07/02/19 06:22 Source: patient, EMS Mode of arrival: EMS Limitations: altered mental status Nursing Notes Reviewed: Yes Vital Signs Reviewed: Yes - History of Present Illness Pain Scale: 0 - Related Data Home Medications Medication Instructions Recorded Confirmed Atorvastatin [Lipitor] 20 mg PO DAILY 01/28/18 05/25/19 Insulin ASPART [NovoLOG] 35 unit SQ BIDWM 01/28/18 02/26/19 Levothyroxine Sodium [Levo-T] 25 mcg PO DAILY 01/28/18 02/26/19 Fluticasone Propionate Nasal 2 spray IN BID 02/26/19 02/26/19 [Flonase] Insulin Glargine [Lantus] 16 units SQ BID 02/26/19 02/26/19 Pioglitazone HCl 30 mg PO DAILY 02/26/19 02/26/19 Brimonidine Tartrate/Timolol 5 ml OP 05/25/19 [Combigan 0.2%-0.5% Eye Drops] Brimonidine Tartrate/Timolol 5 ml OP DAILY 05/25/19 05/25/19 [Combigan 0.2%-0.5% Eye Drops] Brinzolamide 1% [Azopt] 1 drop LEFT EYE BID 05/25/19 05/25/19 Levothyroxine [Synthroid] 25 mcg PO 0630 05/25/19 05/25/19 Sertraline [Zoloft] 50 mg PO DAILY 05/25/19 05/25/19 Previous Rx's Medication Instructions Recorded Insulin LISPRO [HumaLOG] 0 units SQ HS vial 03/05/19 Insulin LISPRO [HumaLOG] 0 units SQ TIDAC vial 03/05/19 Nicotine Patch [Nicoderm] 21 mg TD DAILY patch.td24 03/05/19 Ondansetron [Zofran] 8 mg IVP Q6HR PRN vial 03/05/19 Vitamin B Complex/Vit C/Vit E 1 each PO DAILY tablet 03/05/19 [Stresstab] Ascorbic Acid [Vitamin C] 500 mg PO 0630 #30 tablet 05/29/19 Carvedilol [Coreg] 25 mg PO BID #60 tablet 05/29/19 Ferrous Sulfate 325 mg PO 0630 #30 tablet 05/29/19 Quetiapine Fumarate [Seroquel] 100 mg PO HS #45 tablet 05/29/19 amLODIPine [Norvasc] 5 mg PO DAILY #30 tablet 05/29/19 cloNIDine HCl [CloNIDine HCl] 0.1 mg PO Q8H #90 tablet 05/29/19 traZODone [TraZODone] 50 mg PO HS #30 tablet 05/29/19 Allergies Allergy/AdvReac Type Severity Reaction Status Date / Time Buspirone Allergy Intermediate Confusion Verified 04/21/19 15:13 venlafaxine AdvReac Confusion Verified 04/21/19 15:15 Past Medical History - Past Medical History Medical history: Reports: CHF, COPD, diabetes, hypertension, renal disease, thyroid disease Surgical history: Reports: appendectomy Psychiatric history: Reports: anxiety, depression - Social History Smoking Status: Former smoker Smokeless Tobacco Status: No Alcohol use: Reports: none Drug use: Reports: none Physical Exam - General Limitations: altered mental status General appearance: alert, other (He was confused, maybe baseline dementia) Course Vital Signs Temperature 98.8 F 07/02/19 06:16 Pulse Rate 64 07/02/19 06:16 Respiratory Rate 16 07/02/19 06:16 Blood Pressure 114/84 07/02/19 06:16 O2 Sat by Pulse Oximetry 99 07/02/19 06:16 Temperature 98.8 F 07/02/19 06:16 Pulse Rate 64 07/02/19 06:16 Respiratory Rate 16 07/02/19 06:16 Blood Pressure 114/84 07/02/19 06:16 O2 Sat by Pulse Oximetry 99 07/02/19 06:16 Oxygen Delivery Oxygen Delivery Room Air Attestation Statement - Attestation Attestation: ICrow MD, personally evaluated this patient and discussed their management with the resident physician. I reviewed the resident's note and agree with the documented findings, medical decision making, and plan of care. I reviewed the residents documentation and agree with the residents assessment and plan of care. I have personally had face to face time with the patient. I personally supervised and was present for the cabello/critical portions of the following procedures completed by the resident: EKG interpretation. 68-year-old male presents to the emergency department from home by EMS with complaint of increasingly frequent falls recently. Apparently also has had increased confusion. Here in the emergency department the patient is alert but is obviously confused and disoriented. He is refusing IVs or blood draw or x- rays. I do not feel at this point that patient has capacity to refuse treatment as he is obviously altered. He denies any pain or injury however I am unsure how reliable his history is. On examination patient is a well-developed obese elderly male in no acute distress. He is alert but confused and disoriented. No cyanosis or diaphoresis. Breath sounds are equal bilaterally. Regular. Abdomen is soft with no obvious tenderness. EKG shows atrial fibrillation with ventricular rate of 61. No significant ST segment elevation or depression. Patient was given Ativan 2 mg IM to see if this will make him more cooperative. At morning shift change she is [facility], Dr. Gonzalez.
[2019-07-02 08:12] LABS: Bilirubin,Urine Negative (Negative); Blood,Urine Negative (Negative); Clarity,Urine Clear (Clear); Color,Urine Yellow (Yellow); Glucose,Urine (UA) 250 mg/dL (Normal); Ketones,Urine Negative (Negative); Leukocyte Esterase,Urine Negative (Negative); Nitrite,Urine Negative (Negative); Protein,Urine >=300 mg/dL (Neg-Trace); Specific Gravity,Urine 1.014 (1.010-1.025); Urobilinogen,Urine Normal (Normal)
[2019-07-02 08:15] LABS: Bacteria,Urine None Seen per hpf (None-Few); Hyaline Casts,Urine None Seen per lpf (None-Few); RBC,Urine 0-3 per hpf (0-3); Squamous Epithelial Cell,Urine Many per lpf (None-Few); WBC,Urine 0-3 per hpf (0-3)
[2019-07-02 08:32] LABS: Amphetamine Screen,Urine Negative ng/mL (Cutoff=1000); Barbiturate Screen,Urine Negative ng/mL (Cutoff=200); Benzodiazepines Screen,Urine Negative ng/mL (Cutoff=200); Cannabinoid Screen,Urine Negative ng/mL (Cutoff = 50); Cocaine Screen,Urine Negative ng/mL (Cutoff= 300); Opiate Screen,Urine Negative ng/mL (Cutoff=300); Phencyclidine Screen,Urine Negative ng/mL (Cutoff=25)
[2019-07-02 08:49] LABS: Basophils % 0.2 %; Eosinophils # 0.1 K/mcL (0.0-0.6); Eosinophils % 0.7 %; Hematocrit 28.1 % (37.5-50.1); Hemoglobin 8.7 g/dL (12.9-16.9); Immature Granulocytes % 1.6 % (0-4); Lymphocytes % 12.5 %; Mean Corpuscular Hemoglobin 26.5 pg (28.0-33.3); Mean Corpuscular Volume 85.7 fL (83.0-100.0); Mean Platelet Volume 8.9 fL (9.4-12.4); Monocytes # 0.7 K/mcL (0.0-1.3); Monocytes % 8.9 %; Neutrophils # 6.1 K/mcL (1.6-8.9); Platelet Count 209 K/mcL (140-400); Red Blood Count 3.28 M/mcL (4.19-5.50); Red Cell Distribution Width 16.2 % (11.5-14.5); Segmented Neutrophils % 76.1 %; White Blood Count 8.1 K/mcL (4.3-11.1)
[2019-07-02 08:57] LABS: Prothrombin Time 10.8 Seconds (9.4-12.1)
[2019-07-02 09:09] LABS: Albumin/Globulin Ratio 1.1 (1.1-2.2); Bilirubin,Indirect 0.2 mg/dL (0.0-1.2); Bilirubin,Total 0.2 mg/dL (0.3-1.0); Calcium 8.7 mg/dL (8.6-10.3); Globulin 2.7 g/dL (2.4-3.5); Potassium 4.3 mEq/L (3.5-5.1); Total Protein 5.7 g/dL (6.4-8.9)
[2019-07-02] MEDS ORDERED: Haloperidol Lactate 5 MG/ML VIAL IM ONE ×2 (09:26→11:47)
[2019-07-02 09:33] LABS: Acetaminophen < 10 mcg/mL (10-20); Ethanol < 10 mg/dL (Less than 10); Salicylate < 2.5 mg/dL (15.0-30.0); Troponin I 0.05 ng/mL (< 0.04)
[2019-07-02 09:46] LABS: Activated Partial Thrombo Time 28.6 Seconds (26.0-36.0)
[2019-07-02 10:57] LABS: C-Reactive Protein 9 mg/L (Less than 10)
[2019-07-02] MEDS ORDERED: Aspirin 325 MG TABLET PO ONE (11:18)
[2019-07-02] MEDS ORDERED: *HR* HYDROcodone/Acet 5/325 mg TABLET PO PRN (12:48)
[2019-07-02] MEDS ORDERED: Naloxone 0.4 MG/ML INJ IVP PRN (12:48)
[2019-07-02] MEDS ORDERED: Acetaminophen 325 MG TABLET PO PRN (12:48)
[2019-07-02] MEDS ORDERED: *HR* OxyCODONE Immed Rel 5 MG TABLET PO PRN (12:48)
[2019-07-02] MEDS ORDERED: Ondansetron 4 MG/2 ML VIAL IVP PRN (12:48)
[2019-07-02] MEDS ORDERED: Haloperidol Lactate 5 MG/ML VIAL IVP PRN ×2 (12:50→16:18)
[2019-07-02] MEDS ORDERED: Lidocaine -MPF 1% 5 ML AMPUL INFILT ONE (13:39)
--- NOTE | 2019-07-02 15:01 | Electrocardiograph Report ---
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
[2019-07-02] MEDS: 0.9 % Sodium Chloride 1,000 ML IVC SCH ×2 (15:21→23:40)
[2019-07-02] MEDS ORDERED: D5% in Water 1,000 ML IVC PRN (15:44)
[2019-07-02] MEDS ORDERED: *HR* Dextrose 50 % in Water (Syg) 50 ML SYRINGE IVP PRN (15:44)
[2019-07-02] MEDS ORDERED: Dextrose Gel 15 GM/37.5 ML TUBE PO PRN ×2 (15:44)
--- NOTE | 2019-07-02 15:59 | Internal Med History&Physical ---
Date of Encounter: 07/02/19 Time of Encounter: 15:56 Internal Medicine - H&P: HPI Chief complaint: AMS Admitted From: Emergency Dept Plans for Post Hospital Care: Home History of present illness: Mr. Silveira is a 68 year old male with known PMH of HTN, HLD, DM2, CKD-4, COPD, Legally blind in Left eye, Dementia and psychiatric problem ( possible bipolar / behavioral problem ) pt who was on Seroquel, Zoloft and Trazodone pt was brought into ER by family through EMS stating pt is more confused and agitated lately. In the ER he was given Cogentin, Haldol and Ativan. Now he is sleeping. Unable to get any history from pt. I did talk to pt's daughter who provided me all the history. Apparently pt has similar episode 4 weeks ago and got admitted at [facility]. pt is on Seroquel at home, when he is non compliance / stop taking this medication he gets confused and agitated. Past Med Surg Social Fam HX - Past Medical History Medical history: CHF, COPD, diabetes, hypertension, renal disease, thyroid disease Psychiatric history: anxiety, depression - Past Surgical History Surgical History: appendectomy Additional surgical history: Right Elbow, pancreas removed. - Social History Smoking Status: Former smoker Smokeless Tobacco Status: No Alcohol use: none Drug use: none - Family History Mother Family Member Ethnicity: Non- Living Status: Hx Family Cardiac Disorders: Yes Hx Family Respiratory Disorders: Yes Hx Family Cancer: Yes Hx Family GI Disorders: No Hx Family Endocrine Disorder: Yes Hx Family Neuromuscular Disorders: No Hx Family Neurologic Disorders: No Hx Family HEENT Disorders: No Hx Family Autoimmune Disorders: No Father Adopted: No Family Member Ethnicity: Non- Living Status: Hx Family Cardiac Disorders: Yes Hx Family Respiratory Disorders: Yes Hx Family Cancer: No Hx Family GI Disorders: No Hx Family Endocrine Disorder: Yes Hx Family Neuromuscular Disorders: No Hx Family Neurologic Disorders: No Hx Family HEENT Disorders: No Hx Family Autoimmune Disorders: No Internal Medicine - H&P: Meds Atorvastatin [Lipitor] 20 mg PO DAILY 01/28/18 [History] Insulin ASPART [NovoLOG] 35 unit SQ BIDWM 01/28/18 [History] Insulin Glargine [Lantus] 16 units SQ BID 02/26/19 [History] Brimonidine Tartrate/Timolol [Combigan 0.2%-0.5% Eye Drops] 1 drop RIGHT EYE DAILY 05/25/19 [History] Levothyroxine [Synthroid] 25 mcg PO 0630 05/25/19 [History] Sertraline [Zoloft] 50 mg PO DAILY 05/25/19 [History] Ascorbic Acid [Vitamin C] 500 mg PO 0630 #30 tablet 05/29/19 [Rx] Ferrous Sulfate 325 mg PO 0630 #30 tablet 05/29/19 [Rx] amLODIPine [Norvasc] 5 mg PO DAILY #30 tablet 05/29/19 [Rx] cloNIDine HCl [CloNIDine HCl] 0.1 mg PO Q8H #90 tablet 05/29/19 [Rx] Donepezil [Aricept] 5 mg PO HS 07/02/19 [History] Ipratropium/Albuterol Neb [Duoneb] 3 ml IH Q6HR PRN 07/02/19 [History] Quetiapine Fumarate [Seroquel] 100 mg PO HS 07/02/19 [History] Sevelamer [Renvela] 800 mg PO TIDWM 07/02/19 [History] Tamsulosin HCl [Flomax] 0.4 mg PO DAILY 07/02/19 [History] Travoprost [Travatan Z] 1 drop RIGHT EYE HS 07/02/19 [History] Zolpidem [Ambien] 10 mg PO HS 07/02/19 [History] predniSONE [PredniSONE] 20 mg PO DAILY 07/02/19 [History] traZODone [TraZODone] 50 - 100 mg PO HS PRN 07/02/19 [History] Allergy/AdvReac Type Severity Reaction Status Date / Time Buspirone Allergy Intermediate Confusion Verified 04/21/19 15:13 venlafaxine AdvReac Confusion Verified 04/21/19 15:15 All Systems PM: A 10-system review of systems was performed and is negative for pertinent findings except as documented above in the HPI. Review of systems: All the systems are reviewed everything is benign except the systems and symptoms I mentioned in the history of present illness..Unable to do a through ROS since pt is not able to communicate verbally at this moment.. - Constitutional Vitals: Temp Pulse Resp BP Pulse Ox 98.4 F 75 16 189/85 94 08/05/19 12:59 07/02/19 12:59 07/02/19 12:59 07/02/19 12:59 07/02/19 12:59 General appearance: Present: A&O X 0 (sleepy and sedative), no acute distress Exam: a - Head Head exam: Present: atraumatic, normal inspection - Eye Additional comments: legally blind in left eye - Neck Neck exam general surgery: Present: supple - Respiratory Respiratory exam: Present: decreased breath sounds. Absent: rales, respiratory distress, rhonchi, wheezes - Cardiovascular Cardiovascular exam: Present: RRR, +S1, +S2. Absent: tachycardia - GI/Abdominal GI/Abdominal exam: Present: normal bowel sounds, soft. Absent: rebound, rigid, tenderness - Extremities Exam Extremities exam: Present: normal inspection, pedal edema (Left leg edema). Absent: calf tenderness, tenderness - Back Exam Back exam: Absent: CVA tenderness (L), CVA tenderness (R) - Neurological Exam Additional comments: Sleepy and sedative. Unable to perform thorough neuro exam - Psychiatric Additional comments: sleepy and sedative - Skin Skin exam: Absent: rash Internal Med - H&P Results - Labs CBC & Chem 7: 07/02/19 08:38 07/02/19 08:38 Labs: Short CBC 07/02/19 Range/Units 08:38 WBC 8.1 (4.3-11.1) K/mcL Hgb 8.7 L (12.9-16.9) g/dL Hct 28.1 L (37.5-50.1) % Plt Count 209 (140-400) K/mcL Neutrophils # 6.1 (1.6-8.9) K/mcL BMP 07/02/19 08:38 Sodium 135 L Potassium 4.3 Chloride 108 H Carbon Dioxide 23 BUN 37 H Creatinine 4.16 H Glucose 193 H Calcium 8.7 Cardiac Enzymes 07/02/19 Range/Units 08:38 Troponin I 0.05 H* (< 0.04) ng/mL Liver Function 07/02/19 Range/Units 08:38 Total Bilirubin 0.2 L (0.3-1.0) mg/dL Direct Bilirubin 0.0 (0.0-0.2) mg/dL AST 12 L (13-39) Units/L ALT 12 (7-52) Units/L Alkaline Phosphatase 88 (34-104) Units/L Albumin 3.0 L (3.5-5.7) g/dL Urine 07/02/19 Range/Units 07:51 Urine Color Yellow (Yellow) Urine Clarity Clear (Clear) Urine pH 7.0 (5.0-8.0) pH Units Ur Specific Bow 1.014 (1.010-1.025) Urine Protein >=300 H (Neg-Trace) mg/dL Urine Glucose (UA) 250 H (Normal) mg/dL - Impressions ITS Impressions Chest X-Ray 07/02/19 06:22 IMPRESSION: Stable chest. D/ / Guillaume Borges MD / Guillaume Borges MD Interpreting Provider: Guillaume Borges MD Head CT 07/02/19 06:22 IMPRESSION: No acute intracranial abnormality. Stable left temporal likely arachnoid cyst. D/ / Arianna Broussard MD / Arianna Broussard MD Interpreting Provider: Arianna Broussard MD - Assessment and Plan (1) Altered mental status Current Visit: Yes Status: Acute Assessment and plan: Place the pt into tele for observation Could be multifactorial with Acute metabolic encephalopathy + Psychiatric problem cont symptomatic and supportive care will use Haldol PRN for agitation on tele on continuous pulse oxy meter consulted Psych for further eval May need In pt psych admission for few days to adjust his psych medications resumed home med Seroquel and Zoloft Qualifiers: Altered mental status type: unspecified Qualified Code(s): R41.82 - Altered mental status, unspecified (2) Acute psychosis Current Visit: Yes Status: Acute Assessment and plan: Plan as above (3) Acute kidney injury superimposed on chronic kidney disease Current Visit: Yes Status: Acute Assessment and plan: Started on IV hydration Ordered Retroperitoneal renal US Consulted Nephro for further eval He does need close f/u with Nephro as an out pt at this stage of his CKD-4 Avoid nephro toxins (4) Elevated troponin Current Visit: Yes Status: Acute Assessment and plan: due to demand ischemia with TONY on CKD-4 Will tend on trop for now (5) History of psychosis Current Visit: Yes Status: Chronic (6) Diabetes mellitus Current Visit: No Status: Chronic Assessment and plan: onn ADA diet Will check HbA1C on ISS + Levemir Qualifiers: Diabetes mellitus type: type 2 Diabetes mellitus ferry terminal agent insulin use: with ferry terminal agent use Diabetes mellitus complication status: with kidney complications Diabetes mellitus complication detail: with chronic kidney disease Chronic kidney disease stage: stage 4 (severe) Qualified Code(s): E11.22 - Type 2 diabetes mellitus with diabetic chronic kidney disease; N18.4 - Chronic kidney disease, stage 4 (severe); Z79.4 - watermaster (current) use of insulin (7) Visual field defect of left eye Current Visit: Yes Status: Chronic (8) Hyperlipidemia Current Visit: No Status: Chronic Assessment and plan: resumed home med Qualifiers: Hyperlipidemia type: unspecified Qualified Code(s): E78.5 - Hyperlipidemia, unspecified (9) Hypertension Current Visit: No Status: Chronic Assessment and plan: BP fairly controlled started on IV Hydralazine PRN for now cont home meds Qualifiers: Hypertension type: essential hypertension Qualified Code(s): I10 - Essential (primary) hypertension (10) Hypothyroidism Current Visit: No Status: Chronic Assessment and plan: on levothyroxine Qualifiers: Hypothyroidism type: unspecified Qualified Code(s): E03.9 - Hypothyroidism, unspecified - Time Spent With Patient Total time spent is greater than 50% in coordination of care (as documented) at patient's floor/unit and/or counseling patient:
[2019-07-02] MEDS ORDERED: Insulin LISPRO 300 UNITS/3 ML VIAL SQ SCH ×2 (16:30→21:00)
[2019-07-02 16:34] LABS: Estimated Average Glucose 183 mg/dl
[2019-07-02] MEDS: cloNIDine HCl 0.1 MG TABLET PO SCH ×2 (16:54→23:41)
[2019-07-02] MEDS: Insulin LISPRO 300 UNITS/3 ML VIAL SQ SCH ×2 (16:56→20:59)
[2019-07-02] MEDS: Insulin DETEMIR 100 UNIT/ML X5UNITS SQ SCH (21:00)
[2019-07-02] MEDS: Latanoprost 2.5 ML BOTTLE RIGHT EYE SCH (21:00)
[2019-07-03 03:24] LABS: Chol/HDL Ratio 1.8 (0-4.9); Magnesium 1.4 mg/dL (1.6-2.6)
[2019-07-03 03:32] LABS: Hematocrit 26.6 % (37.5-50.1); Hemoglobin 8.1 g/dL (12.9-16.9); Mean Corpuscular HGB Conc 30.5 g/dL (31.6-35.5); Mean Corpuscular Hemoglobin 26.6 pg (28.0-33.3); Mean Corpuscular Volume 87.5 fL (83.0-100.0); Mean Platelet Volume 8.7 fL (9.4-12.4); Platelet Count 193 K/mcL (140-400); Red Blood Count 3.04 M/mcL (4.19-5.50); Red Cell Distribution Width 16.2 % (11.5-14.5); White Blood Count 6.9 K/mcL (4.3-11.1)
[2019-07-03] MEDS: Levothyroxine 25 MCG TABLET PO SCH (05:18)
[2019-07-03] MEDS: Ascorbic Acid 500 MG TABLET PO SCH (05:18)
[2019-07-03] MEDS: Insulin LISPRO 300 UNITS/3 ML VIAL SQ SCH ×4 (07:11→20:40)
[2019-07-03] MEDS: predniSONE 20 MG TABLET PO SCH (08:23)
[2019-07-03] MEDS: cloNIDine HCl 0.1 MG TABLET PO SCH ×3 (08:23→23:57)
[2019-07-03] MEDS: Insulin DETEMIR 100 UNIT/ML X5UNITS SQ SCH ×2 (08:26→20:39)
[2019-07-03] MEDS ORDERED: amLODIPine 5 MG TABLET PO SCH (09:00)
--- NOTE | 2019-07-03 13:48 | Nephrology Consult Note ---
Date of Encounter: 07/03/19 Time of Encounter: 11:00 Assessment and Plan (1) Acute kidney injury superimposed on chronic kidney disease Current Visit: Yes Status: Acute Known history CKD stage IV Previously followed with Dr. Skinner Baseline creatinine between 2.5 and 3.5 Baseline GFR low 20s Serum creatinine 4.13 on admission Decreased to 3.93 secondary to IV fluids Urinalysis shows significant proteinuria Patient denies recent NSAID, diuretic, antibiotic usage Possibly secondary to urinary retention given patient's diagnosis of neurogenic bladder UOP adequate: 1.275 L Plan: -CKD work-up labs ordered -Continue to trend creatinine -Monitor urine output, strict I's and -Avoid nephrotoxins -Renally dose medications -We will need outpatient follow-up with [facility] (2) Altered mental status Current Visit: Yes Status: Acute Significantly improved compared to overnight Continue to monitor We will defer management to primary team Qualifiers: Altered mental status type: unspecified Qualified Code(s): R41.82 - Altered mental status, unspecified (3) Anemia Current Visit: Yes Status: Acute Patient does take iron daily though family not sure how compliant he has been Hemoglobin was normal back in February No signs of acute bleed at this time Etiology likely iron deficiency in addition to chronic kidney disease Plan: -Retic count -Iron Panel -Stool Guiac -B12/folate Qualifiers: Anemia type: unspecified type Qualified Code(s): D64.9 - Anemia, unspecified (4) Hypertension Current Visit: No Status: Chronic Blood pressure significantly elevated during admission Greatest reading 195/74 Continue to monitor Resume home meds Recommend strict blood pressure control Qualifiers: Hypertension type: essential hypertension Qualified Code(s): I10 - Essential (primary) hypertension History of Present Illness - Reason for Consult Acute Kidney Injury, Chronic Kidney Disease - Chief Complaint AMS - History of Present Illness Mr. Luis is a 68-year-old male with a past medical history of hypertension, hyperlipidemia, type 2 diabetes, CK D stage IV, dementia who was admitted to the hospital for altered mental status. Due to his history of CK D stage IV with concurrent TONY a nephrology consult was obtained. The patient has had multiple admissions for AMS/Agitation in the past and has had extensive work-up. He was last discharged 4wks ago for similar concerns. At that time he did receive a full Neurology work-up which was overall unremarkable. Patients daughter was in the room during interview/history taking and states that much of his problem surrounds the adherence to medications. He is on trazadone, seroquel and Zoloft, but his often forgets to refill his medications until he has already run-out, which culminates in profound confu sherrell, agitation and ultimate hospital admission. Pyschiatry has been consulted for evaluation and management of his AMS. He is a patient of [facility] due to urinary hesitancy, urgency, frequency and incomplete voiding. He recently underwent a bladder scan which revealed significant post-void residual volume and the patient was diagnosed with a Neurogenic Bladder 2/2 Diabetes. He was started on Flomax, but was informed this was not likely BPH and he may need self-caths in the near future. The patient used to follow with Dr. Skinner for his CKD 4, but daughter states that he has not gone in "quite some time". Patient and daughter deny any use of NSAIDS or recent ABXs in preceding weeks. He does drink adequate fluid and is not on any diuretics. Objectively, the patients vitals are stable though his BP is poorly controlled, last check 195/74. Physical exam is notable for +1 pretibial and pedal edema, abdomen soft, nontender, lungs clear, heart regular. Labs reveal Hgb 8.1, was normal back in February, no evidence of active bleeding. BUN 37, Serum creatinine was 4.16 on admission but dropped to 3.93 today 2/2 IVFs. His baseline Creatinine is roughly 3.0 and his baseline GFR is around 20. GFR today is 15. Urinalysis did reveal significant Proteinuria and glucosuria, negative for b lood. UOP thus far 1.275L. Past Med Surg Social Fam HX - Past Medical History Medical history: CHF, COPD, diabetes, hypertension, renal disease, thyroid disease Psychiatric history: anxiety, depression - Past Surgical History Surgical History: appendectomy Additional surgical history: Right Elbow, pancreas removed. - Social History Smoking Status: Former smoker Smokeless Tobacco Status: No Alcohol use: none Drug use: none - Family History Mother Family Member Ethnicity: Non- Living Status: Hx Family Cardiac Disorders: Yes Hx Family Respiratory Disorders: Yes Hx Family Cancer: Yes Hx Family GI Disorders: No Hx Family Endocrine Disorder: Yes Hx Family Neuromuscular Disorders: No Hx Family Neurologic Disorders: No Hx Family HEENT Disorders: No Hx Family Autoimmune Disorders: No Father Adopted: No Family Member Ethnicity: Non- Living Status: Hx Family Cardiac Disorders: Yes Hx Family Respiratory Disorders: Yes Hx Family Cancer: No Hx Family GI Disorders: No Hx Family Endocrine Disorder: Yes Hx Family Neuromuscular Disorders: No Hx Family Neurologic Disorders: No Hx Family HEENT Disorders: No Hx Family Autoimmune Disorders: No Medications and Allergies Atorvastatin [Lipitor] 20 mg PO DAILY 01/28/18 [History] Insulin ASPART [NovoLOG] 35 unit SQ BIDWM 01/28/18 [History] Insulin Glargine [Lantus] 16 units SQ BID 02/26/19 [History] Brimonidine Tartrate/Timolol [Combigan 0.2%-0.5% Eye Drops] 1 drop RIGHT EYE DAILY 05/25/19 [History] Levothyroxine [Synthroid] 25 mcg PO 0630 05/25/19 [History] Sertraline [Zoloft] 50 mg PO DAILY 05/25/19 [History] Ascorbic Acid [Vitamin C] 500 mg PO 0630 #30 tablet 05/29/19 [Rx] Ferrous Sulfate 325 mg PO 0630 #30 tablet 05/29/19 [Rx] amLODIPine [Norvasc] 5 mg PO DAILY #30 tablet 05/29/19 [Rx] cloNIDine HCl [CloNIDine HCl] 0.1 mg PO Q8H #90 tablet 05/29/19 [Rx] Donepezil [Aricept] 5 mg PO HS 07/02/19 [History] Ipratropium/Albuterol Neb [Duoneb] 3 ml IH Q6HR PRN 07/02/19 [History] Quetiapine Fumarate [Seroquel] 100 mg PO HS 07/02/19 [History] Sevelamer [Renvela] 800 mg PO TIDWM 07/02/19 [History] Tamsulosin HCl [Flomax] 0.4 mg PO DAILY 07/02/19 [History] Travoprost [Travatan Z] 1 drop RIGHT EYE HS 07/02/19 [History] Zolpidem [Ambien] 10 mg PO HS 07/02/19 [History] predniSONE [PredniSONE] 20 mg PO DAILY 07/02/19 [History] traZODone [TraZODone] 50 - 100 mg PO HS PRN 07/02/19 [History] Allergy/AdvReac Type Severity Reaction Status Date / Time Buspirone Allergy Intermediate Confusion Verified 04/21/19 15:13 venlafaxine AdvReac Confusion Verified 04/21/19 15:15 Review of Systems All Systems: reviewed and no additional remarkable complaints except as stated Exam - Vital Signs Vital signs: Initial Vital Signs Temp Pulse Resp BP Pulse Ox 98.8 F 64 16 114/84 99 07/02/19 06:16 07/02/19 06:16 07/02/19 06:16 07/02/19 06:16 07/02/19 06:16 Vital Signs - Last 8 Hours Temp Pulse Resp BP Pulse Ox 07/03/19 10:51 98.6 F 82 16 195/74 92 07/03/19 08:33 94 07/03/19 06:52 98.6 F 68 16 157/71 94 Intake and Output 07/02/19 07/03/19 07/03/19 23:59 07:59 15:59 Intake Total 1000 / 2000 1000 / 1000 Output Total 850 / 1275 425 / 1275 Balance 1000 / 2000 -850 / -275 575 / -275 Intake: IV Fluids 1000 / 2000 1000 / 1000 0.9 % Sodium Chloride 1,000 ML 1000 / 1000 1000 / 1000 @ 125 mls/hr IVC .Q8H BENSON Rx#: [id number] Oral 0 / 0 Output: Urine 850 / 1275 425 / 1275 Other: # Urine Diapers 1 1 Weight 88.4 kg Blood Glucose* 125 138 218 Patient Weight 07/03/19 23:59 Weight 88.4 kg - General Appearance Exam: Gen: Technically A&Ox3, baseline dementia/confusion, Vitals Noted, NAD. Head: Atraumatic, normocephalic Eyes: anicteric sclera, legally blind, left sided ptosis noted ENT: Mucous Membranes Moist, oropharynx clear Neck: Soft, supple, trachea midline CV: RRR, no murmurs gallops rubs Lungs: CTAB, no wheezes rales rhonchi Abd: Soft, nontender, nondistended, no suprapubic tenderness Ext: +1 pretibial/Pedal edema, mild/early signs of venous stasis dermatitis Results - Lab Results 07/03/19 02:43 07/03/19 02:43 Most recent lab results 07/03/19 02:43 Calcium 8.0 L Magnesium 1.4 L Consult Discharge Plan - Plan Additional Instructions: You have chosen to switch to [facility] at D/C. They will contact you with a date and time to complete admission process. If you need to contact them please call #[phone] or #[phone]. Referrals: Tima Bryant MD [Non-Partnered Physician] - (Please call and schedule hospital follow up appointment for 7-10 days from date of discharge. )
--- NOTE | 2019-07-03 15:23 | Consult Note ---
Date of Encounter: 07/03/19 Time of Encounter: 13:30 Assessment & Recommendation (1) Altered mental status Current visit: Yes Status: Acute Assessment & Recommendation: -Likely due to noncompliant on his medications.Patient is on Seroquel 100mg PO HS BENSON and 50 mg PO QAM BENSON, Zoloft 50 mg PO daily. -There has been some concern about noncompliance of medication, and patient takes the medication only once a day - Recommend patient takes Seroquel as scheduled. Gets his medication refilled on time - On exam, patient was logical and linear in his speech and did not show signs of any acute confusion - No medication changes recommended as of now . -Psych will sign off . Please call us if any questions Qualifiers: Altered mental status type: unspecified Qualified Code(s): R41.82 - Altered mental status, unspecified History of Present Illness Requesting Physician: Ghazala Benson MD History of present illness: Mr. Silveira is a 68 year old male with past medical history of hypertension, hyperlipidemia, diabetes, CKD-2,COPD who was admitted for altered mental status . Patient has been in the past for similar reasons in february, when he was 6 months course of confusion and personality changes . Back then, specific etiology of patient's altered mental status was not known. Patient is currently on Seroquel 100mg HS and QAM, zoloft 50 mg PO. I learnt that patient is noncompliant on his home Seroquel and is only taking his med once a day. There is also a concern for non-compliance as patient's doesn't get his meds filled on time. Patient was in good mentation when i saw him. He denies any suicidal or homicidal ideation, auditory or visual hallucination. He denies any issues with sleep or appetite. Denies any significant issues of anxiety. CC: Ghazala Benson MD Past Med Surg Social Fam HX - Past Medical History Medical history: CHF, COPD, diabetes, hypertension, renal disease, thyroid disease - Past Surgical History Surgical History: appendectomy - Social History Smoking Status: Former smoker Smokeless Tobacco Status: No Alcohol use: none Drug use: none - Family History Mother Family Member Ethnicity: Non- Living Status: Hx Family Cardiac Disorders: Yes Hx Family Respiratory Disorders: Yes Hx Family Cancer: Yes Hx Family GI Disorders: No Hx Family Endocrine Disorder: Yes Hx Family Neuromuscular Disorders: No Hx Family Neurologic Disorders: No Hx Family HEENT Disorders: No Hx Family Autoimmune Disorders: No Father Adopted: No Family Member Ethnicity: Non- Living Status: Hx Family Cardiac Disorders: Yes Hx Family Respiratory Disorders: Yes Hx Family Cancer: No Hx Family GI Disorders: No Hx Family Endocrine Disorder: Yes Hx Family Neuromuscular Disorders: No Hx Family Neurologic Disorders: No Hx Family HEENT Disorders: No Hx Family Autoimmune Disorders: No Medications & Allergies Atorvastatin [Lipitor] 20 mg PO DAILY 01/28/18 [History] Insulin ASPART [NovoLOG] 35 unit SQ BIDWM 01/28/18 [History] Insulin Glargine [Lantus] 16 units SQ BID 02/26/19 [History] Brimonidine Tartrate/Timolol [Combigan 0.2%-0.5% Eye Drops] 1 drop RIGHT EYE DAILY 05/25/19 [History] Levothyroxine [Synthroid] 25 mcg PO 0630 05/25/19 [History] Sertraline [Zoloft] 50 mg PO DAILY 05/25/19 [History] Ascorbic Acid [Vitamin C] 500 mg PO 0630 #30 tablet 05/29/19 [Rx] Ferrous Sulfate 325 mg PO 0630 #30 tablet 05/29/19 [Rx] amLODIPine [Norvasc] 5 mg PO DAILY #30 tablet 05/29/19 [Rx] cloNIDine HCl [CloNIDine HCl] 0.1 mg PO Q8H #90 tablet 05/29/19 [Rx] Donepezil [Aricept] 5 mg PO HS 07/02/19 [History] Ipratropium/Albuterol Neb [Duoneb] 3 ml IH Q6HR PRN 07/02/19 [History] Quetiapine Fumarate [Seroquel] 100 mg PO HS 07/02/19 [History] Sevelamer [Renvela] 800 mg PO TIDWM 07/02/19 [History] Tamsulosin HCl [Flomax] 0.4 mg PO DAILY 07/02/19 [History] Travoprost [Travatan Z] 1 drop RIGHT EYE HS 07/02/19 [History] Zolpidem [Ambien] 10 mg PO HS 07/02/19 [History] predniSONE [PredniSONE] 20 mg PO DAILY 07/02/19 [History] traZODone [TraZODone] 50 - 100 mg PO HS PRN 07/02/19 [History] Allergy/AdvReac Type Severity Reaction Status Date / Time Buspirone Allergy Intermediate Confusion Verified 04/21/19 15:13 venlafaxine AdvReac Confusion Verified 04/21/19 15:15 Review of Systems Constitutional: Denies: fever, chills, weakness, weight change Eyes: Denies: eye pain, vision change Ears, Nose, Throat: Denies: ear pain, throat pain, dental pain, hearing loss, congestion Cardiovascular: Denies: chest pain, palpitations, dyspnea on exertion Respiratory: Denies: cough, dyspnea, wheezes Gastrointestinal: Denies: abdominal pain, nausea, vomiting, diarrhea, constipation Genitourinary male: Denies: urgency, dysuria, frequency, genital lesions Musculoskeletal: Denies: joint swelling, joint pain Integumentary: Denies: rash, lesions, pruritus Neurological: Denies: headache, weakness, numbness, memory loss Endocrine: Denies: fatigue, heat or cold intolerance Hematologic/Lymphatic: Denies: easy bruising, lymphadenopathy Allergic/Immunologic: Denies: urticaria, itchy eyes Psychiatry Exam - Constitutional Vitals: Temp Pulse Resp BP Pulse Ox 98.6 F 82 16 195/74 92 07/03/19 10:51 07/03/19 10:51 07/03/19 10:51 07/03/19 10:51 07/03/19 10:51 General appearance: age & developmentally appropriate, well-groomed, well- nourished - Musculoskeletal Gait: normal, other (could not assess gait ) Station: relaxed Strength & Tone: normal for patient - Psychiatric Patient Orientation: Yes Person, No Time, Yes Place Level of alertness: Alert Behavior: calm, cooperative Psychomotor activity: Normal Eye Contact: Maintains Eye Contact Mood Description: Euthymic/stable Affect description: congruent with mood, full range Speech Volume: Normal Speech pattern: normal rate, normal rhythm, normal tone, fluent, spontaneous Language & Vocabulary: consistent with education Thought Process: Linear, Goal Oriented Thought Content: No Suicidal ideation, No Homicidal ideation, No Overt delusions Perceptual Disturbances: No Auditory hallucinations, No Visual hallucinations Attention Span Ability: Capable of Focused Attention Memory Description: Grossly Intact Patient Reliability: Reliable Historian Fund of knowledge: Yes abstraction ability, Yes aware of current events Intelligence Estimate: Average Judgment: Limited Insight: Partial Results - Labs Labs: Laboratory Last Values WBC 6.9 K/mcL (4.3-11.1) 07/03/19 02:43 RBC 3.04 M/mcL (4.19-5.50) L 07/03/19 02:43 Hgb 8.1 g/dL (12.9-16.9) L 07/03/19 02:43 Hct 26.6 % (37.5-50.1) L 07/03/19 02:43 MCV 87.5 fL (83.0-100.0) 07/03/19 02:43 MCH 26.6 pg (28.0-33.3) L 07/03/19 02:43 MCHC 30.5 g/dL (31.6-35.5) L 07/03/19 02:43 RDW 16.2 % (11.5-14.5) H 07/03/19 02:43 Plt Count 193 K/mcL (140-400) 07/03/19 02:43 MPV 8.7 fL (9.4-12.4) L 07/03/19 02:43 Immature Gran % 1.6 % (0-4) 07/02/19 08:38 Seg Neutrophils % 76.1 % 07/02/19 08:38 Lymphocytes % 12.5 % 07/02/19 08:38 Monocytes % 8.9 % 07/02/19 08:38 Eosinophils % 0.7 % 07/02/19 08:38 Basophils % 0.2 % 07/02/19 08:38 Neutrophils # 6.1 K/mcL (1.6-8.9) 07/02/19 08:38 Lymphocytes # 1.0 K/mcL (0.6-4.6) 07/02/19 08:38 Monocytes # 0.7 K/mcL (0.0-1.3) 07/02/19 08:38 Eosinophils # 0.1 K/mcL (0.0-0.6) 07/02/19 08:38 Basophils # 0.0 K/mcL (0.0-0.2) 07/02/19 08:38 PT 10.8 Seconds (9.4-12.1) 07/02/19 08:38 INR 1.0 07/02/19 08:38 APTT 28.6 Seconds (26.0-36.0) 07/02/19 08:38 Sodium 140 mEq/L (136-145) 07/03/19 02:43 Potassium 4.0 mEq/L (3.5-5.1) 07/03/19 02:43 Chloride 110 mEq/L (98-107) H 07/03/19 02:43 Carbon Dioxide 24 mEq/L (23-29) 07/03/19 02:43 BUN 31 mg/dL (8-23) H 07/03/19 02:43 Creatinine 3.93 mg/dL (0.70-1.30) H 07/03/19 02:43 Est GFR ( Amer) 19 (> 60) L 07/03/19 02:43 Est GFR (Non-Af Amer) 15 (> 60) L 07/03/19 02:43 BUN/Creatinine Ratio 8 (6-26) 07/03/19 02:43 Glucose 115 mg/dL (70-105) H 07/03/19 02:43 POC Glucose 125 mg/dL (70-99) H 07/02/19 19:30 Est Mean Plasma Glucose 183 mg/dl 07/02/19 08:38 Hemoglobin A1c 8.0 % (-5.6) H 07/02/19 08:38 Calculated Osmolality 297 (280-300) 07/03/19 02:43 Lactic Acid 0.7 mmol/L (0.5-2.2) 07/02/19 08:38 Calcium 8.0 mg/dL (8.6-10.3) L 07/03/19 02:43 Magnesium 1.4 mg/dL (1.6-2.6) L 07/03/19 02:43 Total Bilirubin 0.2 mg/dL (0.3-1.0) L 07/02/19 08:38 Direct Bilirubin 0.0 mg/dL (0.0-0.2) 07/02/19 08:38 Indirect Bilirubin 0.2 mg/dL (0.0-1.2) 07/02/19 08:38 AST 12 Units/L (13-39) L 07/02/19 08:38 ALT 12 Units/L (7-52) 07/02/19 08:38 Alkaline Phosphatase 88 Units/L (34-104) 07/02/19 08:38 Ammonia 30 mcmol/L (16-53) 07/02/19 08:38 Troponin I 0.05 ng/mL (< 0.04) H* 07/02/19 08:38 C-Reactive Protein 9 mg/L (Less than 10) 07/02/19 08:38 Serum Total Protein 5.7 g/dL (6.4-8.9) L 07/02/19 08:38 Albumin 3.0 g/dL (3.5-5.7) L 07/02/19 08:38 Globulin 2.7 g/dL (2.4-3.5) 07/02/19 08:38 Albumin/Globulin Ratio 1.1 (1.1-2.2) 07/02/19 08:38 Triglycerides 144 mg/dL (< 150) 07/03/19 02:43 Cholesterol 112 mg/dL (< 200) 07/03/19 02:43 LDL Cholesterol, Calc 20 mg/dL (0-99) 07/03/19 02:43 VLDL Cholesterol, Calc 29 mg/dL (< 31) 07/03/19 02:43 HDL Cholesterol 63 mg/dL (40-59) H 07/03/19 02:43 Cholesterol/HDL Ratio 1.8 (0-4.9) 07/03/19 02:43 Urine Color Yellow (Yellow) 07/02/19 07:51 Urine Clarity Clear (Clear) 07/02/19 07:51 Urine pH 7.0 pH Units (5.0-8.0) 07/02/19 07:51 Ur Specific [place] 1.014 (1.010-1.025) 07/02/19 07:51 Urine Protein >=300 mg/dL (Neg-Trace) H 07/02/19 07:51 Urine Glucose (UA) 250 mg/dL (Normal) H 07/02/19 07:51 Urine Ketones Negative mg/dL (Negative) 07/02/19 07:51 Urine Blood Negative (Negative) 07/02/19 07:51 Urine Nitrite Negative (Negative) 07/02/19 07:51 Urine Bilirubin Negative (Negative) 07/02/19 07:51 Urine Urobilinogen Normal mg/dL (Normal) 07/02/19 07:51 Ur Leukocyte Esterase Negative (Negative) 07/02/19 07:51 Urine Microscopic RBC 0-3 per hpf (0-3) 07/02/19 07:51 Urine Microscopic WBC 0-3 per hpf (0-3) 07/02/19 07:51 Ur Squamous Epith Cells Many per lpf (None-Few) H 07/02/19 07:51 Urine Bacteria None Seen per hpf (None-Few) 07/02/19 07:51 Hyaline Casts None Seen per lpf (None-Few) 07/02/19 07:51 Ur Culture Indicated? NO (NO) 07/02/19 07:51 Salicylates < 2.5 mg/dL (15.0-30.0) L 07/02/19 08:38 Urine Opiates Screen Negative ng/mL (Blsgel=016) 07/02/19 07:51 Ur Buprenorphine Scrn Negative ng/mL (Cutoff=5) 07/02/19 07:51 Acetaminophen < 10 mcg/mL (10-20) L 07/02/19 08:38 Ur Barbiturates Screen Negative ng/mL (Aocufx=401) 07/02/19 07:51 Ur Phencyclidine Scrn Negative ng/mL (Cutoff=25) 07/02/19 07:51 Ur Amphetamines Screen Negative ng/mL (Tvmphy=8239) 07/02/19 07:51 U Benzodiazepines Scrn Negative ng/mL (Skgcaj=066) 07/02/19 07:51 Urine Cocaine Screen Negative ng/mL (Cutoff= 300) 07/02/19 07:51 U Marijuana (THC) Screen Negative ng/mL (Cutoff = 50) 07/02/19 07:51 Ur Drug Screen Interp See Below 07/02/19 07:51 Ethyl Alcohol < 10 mg/dL (Less than 10) 07/02/19 08:38 - Impressions Impressions Retroperitoneum Ultrasound 07/02/19 16:08 IMPRESSION: Unremarkable ultrasound of the kidneys and urinary bladder. D/ / 07/03/2019 07:11:06 Anselmo Melgoza MD / Cuca Moreno Interpreting Provider: Anselmo Melgoza MD Consult Discharge Plan - Plan Additional Instructions: You have chosen to switch to [facility] at D/C. They will contact you with a date and time to complete admission process. If you need to contact them please call #[phone] or #[phone]. Referrals: Tima Bryant MD [Non-Partnered Physician] - (Please call and schedule hospital follow up appointment for 7-10 days from date of discharge. ) - Attending Attestation I examined this patient and my medical decision-making was reviewed with the Resident Physician. I agree with the documented findings, disposition and treatment plan as described except to the extent set forth below. Agree with mental status, assessment, and plan. See medication recommendations Follow up with outpatient team Doesn't meet inpatient criteria. Psychiatry will sign off.
--- NOTE | 2019-07-03 15:29 | Internal Med Progress Note ---
Hospitalist Progress Note - Encounter Date of Encounter: 07/03/19 Time of Encounter: 15:25 - Subjective Interval History: Pt was seen and examined at bed side. He is more alert, awake and O x 3 Denied any CP / SOB. He still getting agitated at times. However he is more calm and cooperative today. - Exam Vitals: Temp Pulse Resp BP Pulse Ox 98.6 F 82 16 195/74 92 07/03/19 10:51 07/03/19 10:51 07/03/19 10:51 07/03/19 10:51 07/03/19 10:51 Exam: Gen: Alert, awake, Oriented to time,place and person.. Little agitated Chest: Diminished breath sounds B/L, No wheezing, No crackles, No rales Heart: S1S2+ RRR No murmurs Abd: Soft, NT, BS +, No organomegaly Ext: trace edema, pulses are palpable, No calf tenderness Neuro : No acute focal neuro deficits noticed Skin: No rash. - Assessment and Plan (1) Altered mental status Current Visit: Yes Status: Acute Assessment and Plan: It's multifactorial with Acute metabolic encephalopathy + Psychiatric problem cont symptomatic and supportive care Improving Cont Haldol PRN for agitation Con on tele on continuous pulse oxy meter consulted Psych for further eval and to adjust his medications. appreciate psych recommendations home med Seroquel and Zoloft PT / OT eval - recommended ECF placement CM / SW consulted for possible ECF placement Patient does need to stay in the hospital more than 2 midnights due to his complex medical problems recurrent acute psychosis, needed medication adjustment, as well as supervision care. So we will change him to full admission today. I did review my H & P including HPI, PMH, PSH, FH, SH, and ROS no changes noticed (2) Acute psychosis Current Visit: Yes Status: Acute Assessment and Plan: Plan as above (3) Hypertension Current Visit: No Status: Chronic Assessment and Plan: BP fairly controlled on IV Hydralazine PRN for now cont home meds Inc Norvasc to 10mg if BP still elevated will inc Clonidine to 0.2mg TID (4) Acute kidney injury superimposed on chronic kidney disease Current Visit: Yes Status: Acute Assessment and Plan: Gentle IV hydration Reviewed Retroperitoneal renal US Consulted Nephro for further eval - appreciate Nephro recommendations He does need close f/u with Nephro as an out pt at this stage of his CKD-4 Avoid nephro toxins (5) Elevated troponin Current Visit: Yes Status: Acute Assessment and Plan: due to demand ischemia with TONY on CKD-4 No further work up needed (6) History of psychosis Current Visit: Yes Status: Chronic (7) Diabetes mellitus Current Visit: No Status: Chronic Assessment and Plan: onn ADA diet HbA1C - 8.0 on ISS + Levemir (8) Visual field defect of left eye Current Visit: Yes Status: Chronic (9) Hyperlipidemia Current Visit: No Status: Chronic Assessment and Plan: resumed home med (10) Hypothyroidism Current Visit: No Status: Chronic Assessment and Plan: on levothyroxine - Time Spent with Patient Total time spent is greater than 50% in coordination of care (as documented) at patient's floor/unit and/or counseling patient: Internal Medicine: Result - Labs CBC & Chem 7: 07/03/19 02:43 07/03/19 02:43 Labs: Short CBC 07/03/19 Range/Units 02:43 WBC 6.9 (4.3-11.1) K/mcL Hgb 8.1 L (12.9-16.9) g/dL Hct 26.6 L (37.5-50.1) % Plt Count 193 (140-400) K/mcL BMP 07/03/19 02:43 Sodium 140 Potassium 4.0 Chloride 110 H Carbon Dioxide 24 BUN 31 H Creatinine 3.93 H Glucose 115 H Calcium 8.0 L - ABG Interpretation ABG results: PT/INR, D-dimer PT 10.8 Seconds (9.4-12.1) 07/02/19 08:38 - Impressions Impressions Retroperitoneum Ultrasound 07/02/19 16:08 IMPRESSION: Unremarkable ultrasound of the kidneys and urinary bladder. D/ / 07/03/2019 07:11:06 Anselmo Melgoza MD / Cuca Moreno Interpreting Provider: Anselmo Melgoza MD Consult Discharge Plan - Plan Additional Instructions: You have chosen to switch to [facility] at D/C. They will contact you with a date and time to complete admission process. If you need to contact them please call #[phone] or #[phone]. Referrals: Tima Bryant MD [Non-Partnered Physician] - (Please call and schedule hospital follow up appointment for 7-10 days from date of discharge. ) __ (1) Altered mental status Qualifiers: Qualified Code(s): R41.82 - Altered mental status, unspecified (3) Hypertension Qualifiers: Qualified Code(s): I10 - Essential (primary) hypertension (7) Diabetes mellitus Qualifiers: Qualified Code(s): E11.22 - Type 2 diabetes mellitus with diabetic chronic kidney disease; N18.4 - Chronic kidney disease, stage 4 (severe); Z79.4 - custodial (current) use of insulin (9) Hyperlipidemia Qualifiers: Qualified Code(s): E78.5 - Hyperlipidemia, unspecified (10) Hypothyroidism Qualifiers: Qualified Code(s): E03.9 - Hypothyroidism, unspecified
[2019-07-03] MEDS ORDERED: amLODIPine 5 MG TABLET PO ONE (16:00)
[2019-07-03] MEDS: *HR* Heparin 5,000 UNIT/ML VIAL SQ SCH (17:33)
[2019-07-03] MEDS: Latanoprost 2.5 ML BOTTLE RIGHT EYE SCH (20:37)
[2019-07-04 05:17] LABS: Phosphorous 4.2 mg/dL (2.7-4.5)
[2019-07-04 05:43] LABS: Folate 13.8 ng/mL (3.0-16.0)
[2019-07-04] MEDS: *HR* Heparin 5,000 UNIT/ML VIAL SQ SCH ×2 (05:46→18:46)
[2019-07-04] MEDS: Levothyroxine 25 MCG TABLET PO SCH (05:47)
[2019-07-04] MEDS: Ascorbic Acid 500 MG TABLET PO SCH (05:47)
[2019-07-04 06:48] LABS: Immature Reticulocyte % 20.1 % (11.0-38.0); Retculocyte # 0.05 M/mcL (0.05-0.10); Reticulocyte % 1.7 % (1.6-2.8)
[2019-07-04 07:26] LABS: Calcium 8.2 mg/dL (8.6-10.3); Magnesium 1.5 mg/dL (1.6-2.6)
[2019-07-04] MEDS: Insulin DETEMIR 100 UNIT/ML X5UNITS SQ SCH ×2 (08:12→20:14)
[2019-07-04] MEDS: predniSONE 20 MG TABLET PO SCH (08:22)
[2019-07-04] MEDS: cloNIDine HCl 0.1 MG TABLET PO SCH ×3 (08:23→23:08)
[2019-07-04] MEDS: Insulin LISPRO 300 UNITS/3 ML VIAL SQ SCH ×4 (08:23→20:15)
[2019-07-04] MEDS: amLODIPine 5 MG TABLET PO SCH (08:23)
--- NOTE | 2019-07-04 15:05 | Internal Med Progress Note ---
Hospitalist Progress Note - Encounter Date of Encounter: 07/04/19 Time of Encounter: 15:03 - Subjective Interval History: Pt was seen and examined at bed side. He is more alert, awake and O x 3 Denied any CP / SOB. No events over night He is more calm and cooperative today - Exam Vitals: Temp Pulse Resp BP Pulse Ox 97.6 F 70 14 137/73 97 07/04/19 12:05 07/04/19 12:05 07/04/19 12:05 07/04/19 12:05 07/04/19 12:05 Exam: Gen: Alert, awake, Oriented to time,place and person. Looks little depressed Chest: Diminished breath sounds B/L, No wheezing, No crackles, No rales Heart: S1S2+ RRR No murmurs Abd: Soft, NT, BS +, No organomegaly Ext: trace edema, pulses are palpable, No calf tenderness Neuro : No acute focal neuro deficits noticed Skin: No rash. - Assessment and Plan (1) Altered mental status Current Visit: Yes Status: Acute Assessment and Plan: It's multifactorial with Acute metabolic encephalopathy + Psychiatric problem cont symptomatic and supportive care Improving Cont Haldol PRN for agitation Con on tele on continuous pulse oxy meter consulted Psych for further eval and to adjust his medications. Psych recommended to continue Seroquel 100mg PO HS BENSON and 50 mg PO QAM BENSON, Zoloft 50 mg PO daily. appreciate psych recommendations PT / OT eval - recommended ECF placement CM / SW consulted for possible ECF placement (2) Acute psychosis Current Visit: Yes Status: Acute Assessment and Plan: Plan as above (3) Acute kidney injury superimposed on chronic kidney disease Current Visit: Yes Status: Acute Assessment and Plan: Resumed gentle IV hydration again since His Cr started trending up today Cr @ 4.4 Reviewed Retroperitoneal renal US appreciate Nephro recommendations Avoid nephro toxins (4) Elevated troponin Current Visit: Yes Status: Acute Assessment and Plan: due to demand ischemia with TONY on CKD-4 No further work up needed (5) DVT prophylaxis Current Visit: No Status: Acute (6) Diabetes mellitus Current Visit: No Status: Chronic Assessment and Plan: onn ADA diet HbA1C - 8.0 on ISS + Levemir (7) Hypertension Current Visit: No Status: Chronic Assessment and Plan: BP little better today with home meds + Norvasc 10mg con IV Hydralazine PRN for now Cont Clonidine 0.1mg TID (8) Hypothyroidism Current Visit: No Status: Chronic Assessment and Plan: on levothyroxine - Time Spent with Patient Total time spent is greater than 50% in coordination of care (as documented) at patient's floor/unit and/or counseling patient: Internal Medicine: Result - Labs CBC & Chem 7: 07/03/19 02:43 07/04/19 04:35 Labs: BMP 07/04/19 04:35 Sodium 140 Potassium 4.0 Chloride 108 H Carbon Dioxide 24 BUN 39 H Creatinine 4.44 H Glucose 135 H Calcium 8.2 L - ABG Interpretation ABG results: PT/INR, D-dimer PT 10.8 Seconds (9.4-12.1) 07/02/19 08:38 Consult Discharge Plan - Plan Additional Instructions: You have chosen to switch to [facility] at D/C. They will contact you with a date and time to complete admission process. If you need to contact them please call #[phone] or #[phone]. Referrals: Tima Bryant MD [Non-Partnered Physician] - (Please call and schedule hospital follow up appointment for 7-10 days from date of discharge. ) (6) Diabetes mellitus Qualifiers: Diabetes mellitus type: type 2 Diabetes mellitus correction insulin use: with correction use Diabetes mellitus complication status: with kidney complications Diabetes mellitus complication detail: with chronic kidney disease Chronic kidney disease stage: stage 4 (severe) Qualified Code(s): E11.22 - Type 2 diabetes mellitus with diabetic chronic kidney disease; N18.4 - Chronic kidney disease, stage 4 (severe); Z79.4 - half-way (current) use of insulin (7) Hypertension Qualifiers: Hypertension type: essential hypertension Qualified Code(s): I10 - Essential (primary) hypertension (8) Hypothyroidism Qualifiers: Hypothyroidism type: unspecified Qualified Code(s): E03.9 - Hypothyroidism, unspecified
[2019-07-04] MEDS: 0.9 % Sodium Chloride 1,000 ML IVC SCH (16:53)
--- NOTE | 2019-07-04 16:55 | Nephrology Progress Note ---
Date of Encounter: 07/04/19 Time of Encounter: 10:00 - Assessment and Plan (1) Acute kidney injury superimposed on chronic kidney disease Current Visit: Yes Status: Acute Known history CKD stage IV Baseline creatinine between 2.5 and 3.5 Baseline GFR low 20s Scr: 4.1-->3.93-->4.4 today Urinalysis shows significant proteinuria Possibly secondary to urinary retention given patient's diagnosis of neurogenic bladder UOP adequate: 1.275 L Plan: -will restart IVF -If no improvement may need LANDSCAPING SPECIALIST -Continue to trend creatinine -Monitor urine output, strict I/O -Avoid nephrotoxins -Renally dose medications -We will need outpatient follow-up with [facility] (2) Altered mental status Current Visit: Yes Status: Acute Qualifiers: Altered mental status type: unspecified Qualified Code(s): R41.82 - Altered mental status, unspecified (3) Anemia Current Visit: Yes Status: Acute Qualifiers: Anemia type: unspecified type Qualified Code(s): D64.9 - Anemia, unspecified (4) Hypertension Current Visit: No Status: Chronic Qualifiers: Hypertension type: essential hypertension Qualified Code(s): I10 - Essential (primary) hypertension Subjective Principal diagnosis: TONY on CKD Interval history: Patient seen and examined at bedside. No acute events overnight. No new or worsening symptoms. Urine output remains stable. Scr worse today, 4.4 up from 3.9 yesterday. Completed 2L fluids yesterday and has not been on MIVF today. Patient may benefit from another round of fluids. If creatinine continues to wor sen while on fluids, will ultimately benefit from LANDSCAPING SPECIALIST. Objective - Vital Signs Vital signs: Vital Signs Temp Pulse Resp BP Pulse Ox 07/04/19 16:04 98.2 F 74 18 149/77 96 07/04/19 12:05 97.6 F 70 14 137/73 97 07/04/19 07:37 97.7 F 65 17 155/70 95 07/04/19 03:52 98.4 F 71 14 163/70 95 07/04/19 00:12 98.3 F 67 15 130/66 95 07/03/19 18:34 97.6 F 73 15 169/56 96 07/03/19 17:34 98.5 F 80 16 171/81 96 Intake and Output 07/04/19 07/04/19 07/04/19 07:59 15:59 23:59 Intake Total 240 / 240 Output Total 200 / 1050 850 / 1050 Balance -200 / -810 -610 / -810 Intake: Oral 240 / 240 Output: Urine 200 / 1050 850 / 1050 Other: Meal Lunch Percent of Meal Consumed 100% Weight 86.3 kg Blood Glucose* 171 229 192 Patient Weight 07/04/19 23:59 Weight 86.3 kg - General Appearance Exam: Gen: Technically A&Ox3, baseline dementia/confusion, Vitals Noted, NAD. Head: Atraumatic, normocephalic Eyes: anicteric sclera, legally blind, left sided ptosis noted ENT: Mucous Membranes Moist, oropharynx clear Neck: Soft, supple, trachea midline CV: RRR, no murmurs gallops rubs Lungs: CTAB, no wheezes rales rhonchi Abd: Soft, nontender, nondistended, no suprapubic tenderness Ext: +1 pretibial/Pedal edema, mild/early signs of venous stasis dermatitis - Lab 07/03/19 02:43 07/04/19 04:35 Most recent lab results 07/04/19 04:35 Calcium 8.2 L Phosphorus 4.2 Magnesium 1.5 L Consult Discharge Plan - Plan Additional Instructions: You have chosen to switch to [facility] at D/C. They will contact you with a date and time to complete admission process. If you need to contact them please call #[phone] or #[phone]. Referrals: Tima Bryant MD [Non-Partnered Physician] - (Please call and schedule hospital follow up appointment for 7-10 days from date of discharge. )
[2019-07-04] MEDS: traZODone 50 MG TABLET PO PRN (20:15)
[2019-07-04] MEDS: Latanoprost 2.5 ML BOTTLE RIGHT EYE SCH (20:16)
[2019-07-04] MEDS: Ipratropium/Albuterol Neb 3 ML IH PRN (20:32)
[2019-07-05] MEDS: 0.9 % Sodium Chloride 1,000 ML IVC SCH ×2 (02:38→06:07)
[2019-07-05] MEDS: Ascorbic Acid 500 MG TABLET PO SCH (05:10)
[2019-07-05] MEDS: Levothyroxine 25 MCG TABLET PO SCH (05:10)
[2019-07-05] MEDS: *HR* Heparin 5,000 UNIT/ML VIAL SQ SCH ×2 (05:11→17:53)
[2019-07-05 05:53] LABS: Calcium 8.3 mg/dL (8.6-10.3); Magnesium 1.5 mg/dL (1.6-2.6); Potassium 4.2 mEq/L (3.5-5.1)
[2019-07-05 06:45] LABS: Creatinine,Urine 33 mg/dL; Microalbumin,Urine > 1350 mg/L
[2019-07-05] MEDS: cloNIDine HCl 0.1 MG TABLET PO SCH ×4 (08:46→23:05)
[2019-07-05] MEDS: predniSONE 20 MG TABLET PO SCH (08:46)
[2019-07-05] MEDS: amLODIPine 5 MG TABLET PO SCH (08:47)
[2019-07-05] MEDS: Insulin LISPRO 300 UNITS/3 ML VIAL SQ SCH ×4 (08:49→22:23)
[2019-07-05] MEDS: Insulin DETEMIR 100 UNIT/ML X5UNITS SQ SCH ×2 (08:52→22:47)
[2019-07-05] MEDS ORDERED: 0.9 % Sodium Chloride 1,000 ML IVC SCH (12:29)
--- NOTE | 2019-07-05 12:30 | Internal Med Progress Note ---
Hospitalist Progress Note - Encounter Date of Encounter: 07/05/19 Time of Encounter: 09:00 - Subjective Interval History: Pt was seen and examined at bed side. He is alert, awake and O x 3 Denied any CP / SOB. No events over night He is more calm and cooperative today - Exam Vitals: Temp Pulse Resp BP Pulse Ox 98.0 F 102 15 141/65 99 07/05/19 11:36 07/05/19 11:36 07/05/19 11:36 07/05/19 11:36 07/05/19 11:36 Exam: Gen: Alert, awake, Oriented to time,place and person. Looks little depressed Chest: Diminished breath sounds B/L, No wheezing, No crackles, No rales Heart: S1S2+ RRR No murmurs Abd: Soft, NT, BS +, No organomegaly Ext: trace edema, pulses are palpable, No calf tenderness Neuro : No acute focal neuro deficits noticed Skin: No rash. - Assessment and Plan (1) Altered mental status Current Visit: Yes Status: Acute Assessment and Plan: It's multifactorial with Acute metabolic encephalopathy + Psychiatric problem cont symptomatic and supportive care Improving Cont Haldol PRN for agitation Pt is refusing to stay on tele. Will d/c tele Psych recommended to continue Seroquel 100mg PO HS BENSON and 50 mg PO QAM BENSON, Zoloft 50 mg PO daily. appreciate psych recommendations PT / OT eval - recommended ECF placement CM / SW consulted for possible ECF placement (2) Acute psychosis Current Visit: Yes Status: Acute Assessment and Plan: Plan as above (3) Acute kidney injury superimposed on chronic kidney disease Current Visit: Yes Status: Acute Assessment and Plan: Cont gentle IV hydration today Cr @ 4.2 Non oliguric He did have 1350 CC urine out out / 24 hrs Reviewed Retroperitoneal renal US appreciate Nephro recommendations Avoid nephro toxins (4) Elevated troponin Current Visit: Yes Status: Acute Assessment and Plan: due to demand ischemia with TONY on CKD-4 No further work up needed (5) DVT prophylaxis Current Visit: No Status: Acute (6) Diabetes mellitus Current Visit: No Status: Chronic Assessment and Plan: onn ADA diet HbA1C - 8.0 on ISS + Levemir (7) Hypertension Current Visit: No Status: Chronic Assessment and Plan: BP still fluctuating with home meds + Norvasc 10mg con IV Hydralazine PRN for now Inc Clonidine 0.2 mg TID (8) Hypothyroidism Current Visit: No Status: Chronic Assessment and Plan: on levothyroxine - Time Spent with Patient Total time spent is greater than 50% in coordination of care (as documented) at patient's floor/unit and/or counseling patient: Internal Medicine: Result - Labs CBC & Chem 7: 07/03/19 02:43 07/05/19 05:05 Labs: BMP 07/05/19 05:05 Sodium 141 Potassium 4.2 Chloride 106 Carbon Dioxide 25 BUN 39 H Creatinine 4.29 H Glucose 215 H Calcium 8.3 L - ABG Interpretation ABG results: PT/INR, D-dimer PT 10.8 Seconds (9.4-12.1) 07/02/19 08:38 Consult Discharge Plan - Plan Additional Instructions: You have chosen to switch to [facility] at D/C. They will contact you with a date and time to complete admission process. If you need to contact them please call #[phone] or #[phone]. Referrals: Tima Bryant MD [Non-Partnered Physician] - (Please call and schedule hospital follow up appointment for 7-10 days from date of discharge. ) (6) Diabetes mellitus Qualifiers: Diabetes mellitus type: type 2 Diabetes mellitus longterm insulin use: with roasterman use Diabetes mellitus complication status: with kidney complications Diabetes mellitus complication detail: with chronic kidney disease Chronic kidney disease stage: stage 4 (severe) Qualified Code(s): E11.22 - Type 2 diabetes mellitus with diabetic chronic kidney disease; N18.4 - Chronic kidney disease, stage 4 (severe); Z79.4 - termite helper (current) use of insulin (7) Hypertension Qualifiers: Hypertension type: essential hypertension Qualified Code(s): I10 - Essential (primary) hypertension (8) Hypothyroidism Qualifiers: Hypothyroidism type: unspecified Qualified Code(s): E03.9 - Hypothyroidism, unspecified
--- NOTE | 2019-07-05 13:32 | Nephrology Progress Note ---
Date of Encounter: 07/05/19 Time of Encounter: 10:00 - Assessment and Plan (1) Acute kidney injury superimposed on chronic kidney disease Current Visit: Yes Status: Acute Known history CKD stage IV Baseline creatinine between 2.5 and 3.5 Baseline GFR low 20s Serum Creatinine fluctuates Scr: 4.1-->3.93-->4.4-->4.2 today Urinalysis shows significant proteinuria Possibly secondary to urinary retention given patient's diagnosis of neurogenic bladder vs dehydration UOP: adequate on IVFs Plan: -Patient stable for discharge from nephrology standpoint -May continue IVFs while here -No BACKER UP indicated -Trend Creatinine and continue renal protective measures -Patient will need 3-4 Hospital Follow-up with Dr. Couch. (2) Altered mental status Current Visit: Yes Status: Acute Qualifiers: Altered mental status type: unspecified Qualified Code(s): R41.82 - Altered mental status, unspecified (3) Anemia Current Visit: Yes Status: Acute Qualifiers: Anemia type: unspecified type Qualified Code(s): D64.9 - Anemia, unspecified (4) Hypertension Current Visit: No Status: Chronic Qualifiers: Hypertension type: essential hypertension Qualified Code(s): I10 - Essential (primary) hypertension Subjective Principal diagnosis: TONY on CKD Interval history: Patient seen and examined at bedside. No acute events overnight. No new or worsening symptoms. Reports he is not getting any sleep overnight, wants his Seroquel to be given today. He did get IVF and his Serum Creatinine did improve slightly, down to 4.2. Denies nausea/vomiting, chest pain/shortness of breath, fever/chills. Physical exam remains unchanged. Objective - Vital Signs Vital signs: Vital Signs Temp Pulse Resp BP Pulse Ox 07/05/19 11:36 98.0 F 102 15 141/65 99 07/05/19 07:14 98.0 F 101 16 169/83 94 07/05/19 05:00 98.3 F 83 14 170/88 95 07/04/19 23:10 97.8 F 81 14 166/89 96 07/04/19 20:32 14 100 07/04/19 18:35 97.4 F L 72 14 146/79 94 07/04/19 16:04 98.2 F 74 18 149/77 96 Intake and Output 08/06/1507/05/19 07/05/19 23:59 07:59 15:59 Intake Total 240 / 480 1000 / 1360 360 / 1360 Output Total 750 / 1800 850 / 1750 900 / 1750 Balance -510 / -1320 150 / -390 -540 / -390 Intake: IV Fluids 1000 / 1000 0.9 % Sodium Chloride 1,000 ML 1000 / 1000 @ 100 mls/hr IVC .Q10H BENSON Rx#: [id number] Oral 240 / 480 360 / 360 Output: Urine 750 / 1800 850 / 1750 900 / 1750 Other: Meal Dinner Breakfast Percent of Meal Consumed 100% 100% Weight 87 kg Blood Glucose* 227 268 181 Patient Weight 07/05/19 23:59 Weight 87 kg - General Appearance Exam: Gen: Technically A&Ox3, baseline dementia/confusion, Vitals Noted, NAD. Head: Atraumatic, normocephalic Eyes: anicteric sclera, legally blind, left sided ptosis noted ENT: Mucous Membranes Moist, oropharynx clear Neck: Soft, supple, trachea midline CV: RRR, no murmurs gallops rubs Lungs: CTAB, no wheezes rales rhonchi Abd: Soft, nontender, nondistended, no suprapubic tenderness Ext: +1 pretibial/Pedal edema, mild/early signs of venous stasis dermatitis - Lab 07/03/19 02:43 07/05/19 05:05 Most recent lab results 07/05/19 07/05/19 05:05 05:40 Calcium 8.3 L Magnesium 1.5 L Urine Creatinine 33 Urine Total Protein 340 H Consult Discharge Plan - Plan Additional Instructions: You have chosen to switch to [facility] at D/C. They will contact you with a date and time to complete admission process. If you need to contact them please call #[phone] or #[phone]. Referrals: Manny,Tima Roldan MD [Non-Partnered Physician] - (Please call and schedule hospital follow up appointment for 7-10 days from date of discharge. )
[2019-07-05] MEDS ORDERED: Ergocalciferol (VIT D2) 50,000 UNIT (1.25MG) CAP PO SCH (15:30)
[2019-07-05] MEDS: traZODone 50 MG TABLET PO PRN (22:47)
[2019-07-05] MEDS: Latanoprost 2.5 ML BOTTLE RIGHT EYE SCH (22:48)
[2019-07-05] MEDS: Ipratropium/Albuterol Neb 3 ML IH PRN (23:29)
[2019-07-06] MEDS: *HR* Heparin 5,000 UNIT/ML VIAL SQ SCH (03:26)
--- NOTE | 2019-07-06 06:49 | Event Note ---
Date of Encounter: 07/06/19 Time of Encounter: 06:47 - Nephrology Event Note Nephrology chart update The patient appears to have chronic kidney disease stage IV to V. As evaluated by my colleague Dr. Couch: He appears stable and not needing dialysis. Also yesterday in Dr. Couch's note, he recommended outpatient follow-up with him soon, which I concur. Given his stable (though advanced) renal function, I will politely Sign-Off, and I recommend continuing to follow a renal protective/conservative strategy. Please feel free to call or page Nephrology with any related questions. Thank you
[2019-07-06] MEDS: predniSONE 20 MG TABLET PO SCH (08:36)
[2019-07-06] MEDS: Ascorbic Acid 500 MG TABLET PO SCH (08:37)
[2019-07-06] MEDS: cloNIDine HCl 0.1 MG TABLET PO SCH (08:37)
[2019-07-06] MEDS: amLODIPine 5 MG TABLET PO SCH (08:37)
[2019-07-06] MEDS: Levothyroxine 25 MCG TABLET PO SCH (08:41)
[2019-07-06] MEDS: Insulin LISPRO 300 UNITS/3 ML VIAL SQ SCH ×2 (08:41→12:22)
[2019-07-06] MEDS: Insulin DETEMIR 100 UNIT/ML X5UNITS SQ SCH (08:45)
[2019-07-06 08:55] LABS: Calcium 8.7 mg/dL (8.6-10.3); Magnesium 1.4 mg/dL (1.6-2.6); Potassium 3.8 mEq/L (3.5-5.1)
[2019-07-06] MEDS: Ipratropium/Albuterol Neb 3 ML IH PRN (09:18)
[2019-07-06 11:01] VITALS: BP 116/74
--- NOTE | 2019-07-06 11:44 | Discharge Summary ---
- NOTES TO OUTPATIENT PROVIDER Notes to Outpatient Provider: f/u with PCP in on week. f/u with Nephrology in 1-2 weeks. Please wean him off the prednisone slowly.. Start at 15 mg PO Daily x 3 days then 10mg PO Daily x 3 days then 5mg PO Daily x 3 days then 2.5mg PO Daily x 3 days and stop. Orders not resulted at time of discharge: Pending orders 07/02/19 08:09 Culture,Blood [BC] Stat Date of Encounter: 07/06/19 Time of Encounter: 11:35 - Discharge Diagnosis (1) Altered mental status Priority: Primary Status: Acute Qualifiers: Altered mental status type: delirium Qualified Code(s): R41.0 - Disorientation, unspecified (2) Acute psychosis Priority: Primary Status: Acute (3) Acute kidney injury superimposed on chronic kidney disease Priority: Primary Status: Acute (4) Elevated troponin Priority: Secondary Status: Acute (5) DVT prophylaxis Priority: Secondary Status: Acute (6) Diabetes mellitus Priority: Secondary Status: Chronic Qualifiers: Diabetes mellitus type: type 2 Diabetes mellitus penitentiary insulin use: with salvage determiner use Diabetes mellitus complication status: with kidney complications Diabetes mellitus complication detail: with chronic kidney disease Chronic kidney disease stage: stage 4 (severe) Qualified Code(s): E11.22 - Type 2 diabetes mellitus with diabetic chronic kidney disease; N18.4 - Chronic kidney disease, stage 4 (severe); Z79.4 - buttermaker continuous churn (current) use of insulin (7) Hypertension Priority: Secondary Status: Chronic Qualifiers: Hypertension type: essential hypertension Qualified Code(s): I10 - Essential (primary) hypertension (8) Hypothyroidism Priority: Secondary Status: Chronic Qualifiers: Hypothyroidism type: unspecified Qualified Code(s): E03.9 - Hypothyroidism, unspecified Hospital course: Mr. Silveira is a 68 year old male with known PMH of HTN, HLD, DM2, CKD-4, COPD, Legally blind in Left eye, Dementia and psychiatric problem ( possible bipolar / behavioral problem ) pt who was on Seroquel, Zoloft and Trazodone pt was brought into ER by family through EMS stating pt is more confused and agitated lately. In the ER he was given Cogentin, Haldol and Ativan. Now he is sleeping. Unable to get any history from pt. I did talk to pt's daughter who provided me all the history. Apparently pt has similar episode 4 weeks ago and got admitted at [facility]. pt is on Seroquel at home, when he is non compliance / stop taking his medications he gets confused and agitated. He was admitted in the hospital and placed him on x ray technologist. Resumed all his home psychiatric medications. He did develop TONY with CKD-4. His altered mental status seems to multifactorial with metabolic encephalopathy due to dehydration and his behavioral problems. Pt mentation completely by next day. Psychiatrist had evaluated the patient and recommended to continue current care. Regarding his TONY with CKD-4, patient was evaluated by home therapy clinician. We continued gentle IV hydration. His Cr improved and seem to be at baseline today. He was evaluated by PT / OT who recommend ECF placement for short term rehab. So will d/c him to ECF in stable condition today. I did notice he is taking Prednisone 20mg daily in his home medications list. I reached out to his PCP Dr. Bryant's office, who stated they never prescribed this medication, he was in and out of several hospitals , so some one started him on Prednisone probably due to respiratory condition. So at this point will wean him off the steroids slowly. - Time Spent with Patient Total time spent providing and/or coordinating discharge services: - Discharge Medications Prescriptions: New Haloperidol [Haldol] 0.5 mg PO TID PRN 7 Days #10 tablet PRN Reason: Delerium amLODIPine [Norvasc] 10 mg PO DAILY tablet Continued Atorvastatin [Lipitor] 20 mg PO DAILY Insulin ASPART [NovoLOG] 35 unit SQ BIDWM Insulin Glargine [Lantus] 16 units SQ BID Brimonidine Tartrate/Timolol [Combigan 0.2%-0.5% Eye Drops] 1 drop RIGHT EYE DAILY Levothyroxine [Synthroid] 25 mcg PO 0630 Sertraline [Zoloft] 50 mg PO DAILY Quetiapine Fumarate [Seroquel] 100 mg PO HS traZODone [TraZODone] 50 - 100 mg PO HS PRN PRN Reason: Insomnia Ipratropium/Albuterol Neb [Duoneb] 3 ml IH Q6HR PRN PRN Reason: Shortness Of Breath Travoprost [Travatan Z] 1 drop RIGHT EYE HS predniSONE [PredniSONE] 20 mg PO DAILY Donepezil [Aricept] 5 mg PO HS Tamsulosin HCl [Flomax] 0.4 mg PO DAILY Sevelamer [Renvela] 800 mg PO TIDWM Zolpidem [Ambien] 10 mg PO HS 10 Days #10 tablet Ferrous Sulfate 325 mg PO 0630 #30 tablet Ascorbic Acid [Vitamin C] 500 mg PO 0630 #30 tablet cloNIDine HCl [CloNIDine HCl] 0.1 mg PO Q8H #90 tablet Discontinued amLODIPine [Norvasc] 5 mg PO DAILY #30 tablet Home Medications: Atorvastatin [Lipitor] 20 mg PO DAILY 01/28/18 [History] Insulin ASPART [NovoLOG] 35 unit SQ BIDWM 01/28/18 [History] Insulin Glargine [Lantus] 16 units SQ BID 02/26/19 [History] Brimonidine Tartrate/Timolol [Combigan 0.2%-0.5% Eye Drops] 1 drop RIGHT EYE DAILY 05/25/19 [History] Levothyroxine [Synthroid] 25 mcg PO 0630 05/25/19 [History] Sertraline [Zoloft] 50 mg PO DAILY 05/25/19 [History] Ascorbic Acid [Vitamin C] 500 mg PO 0630 #30 tablet 05/29/19 [Rx] Ferrous Sulfate 325 mg PO 0630 #30 tablet 05/29/19 [Rx] cloNIDine HCl [CloNIDine HCl] 0.1 mg PO Q8H #90 tablet 05/29/19 [Rx] Donepezil [Aricept] 5 mg PO HS 07/02/19 [History] Ipratropium/Albuterol Neb [Duoneb] 3 ml IH Q6HR PRN 07/02/19 [History] Quetiapine Fumarate [Seroquel] 100 mg PO HS 07/02/19 [History] Sevelamer [Renvela] 800 mg PO TIDWM 07/02/19 [History] Tamsulosin HCl [Flomax] 0.4 mg PO DAILY 07/02/19 [History] Travoprost [Travatan Z] 1 drop RIGHT EYE HS 07/02/19 [History] predniSONE [PredniSONE] 20 mg PO DAILY 07/02/19 [History] traZODone [TraZODone] 50 - 100 mg PO HS PRN 07/02/19 [History] Haloperidol [Haldol] 0.5 mg PO TID PRN 7 Days #10 tablet 07/06/19 [Rx] Zolpidem [Ambien] 10 mg PO HS 10 Days #10 tablet 07/06/19 [Rx] amLODIPine [Norvasc] 10 mg PO DAILY tablet 07/06/19 [Rx] Allergies/Adverse Reactions: Allergy/AdvReac Type Severity Reaction Status Date / Time Buspirone Allergy Intermediate Confusion Verified 04/21/19 15:13 venlafaxine AdvReac Confusion Verified 04/21/19 15:15 Date of admission: 07/03/19 15:03 Primary care physician: PCP NONE Consults: 07/02/19 12:53 Consult to Psychiatry [CONS] Routine Consulting Provider: Psychiatry Madyson Reason consult: Altered mental status Other reason and/or additional details: Acute Psychosis [place] initiated date and time: Today in the ER Time Notified: 12:55 Call Completed: Yes 07/02/19 12:55 Consult to Nephrology [CONS] Routine Consulting Provider: Kidney Madyson/GINA/DELVIN/LAURA Reason for Consult: TONY on CKD-4 Time Notified: 12:56 Call Completed: Yes 07/02/19 13:39 Consult to Invasive Line Access Team [CONS] Routine Reason for Consult: Picc Line Insertion Line Type: EPIV PICC line indications: Limited vascular access Time Notified: 13:40 Call Completed: Yes 07/02/19 13:50 Consult to Mat Tester [CONS] Routine Reason for SW Consult: ECF placement 07/03/19 08:04 Consult to Occupational Therapy [CONS] Routine Comment: Evaluate, develop and implement POC Reason for Consult: WEAKNESS, POSSIBLE PLACEMENT Does patient have active BEDREST order?: No Is patient medically & hemodynamically stable?: Yes Consult to Physical Therapy [CONS] Routine Comment: Evaluate, develop and implement POC Reason for Consult: WEAKNESS, POSSIBLE PLACEMENT Does patient have active BEDREST order?: No Is patient medically & hemodynamically stable?: Yes - Constitutional Vitals: Temp Pulse Resp BP Pulse Ox 98.3 F 92 15 116/74 92 07/06/19 11:00 07/06/19 11:00 07/06/19 11:00 07/06/19 11:00 07/06/19 11:00 General appearance: Present: A&O X 3, no acute distress Exam: Gen: Alert, awake, Oriented to time,place and person. Looks little depressed Chest: Diminished breath sounds B/L, No wheezing, No crackles, No rales Heart: S1S2+ RRR No murmurs Abd: Soft, NT, BS +, No organomegaly Ext: trace edema, pulses are palpable, No calf tenderness Neuro : No acute focal neuro deficits noticed Skin: No rash. - Patient Status Disposition: Transfer SNF Condition: Serious Overall status at discharge: patient is back to baseline - Discharge Instructions Follow Up With: Tima Byrant MD [Non-Partnered Physician] - (Please call and schedule hospital follow up appointment for 7-10 days from date of discharge. ) Ric Couch MD [Partnered Physician] - Additional Instructions: You have chosen to switch to [facility] at D/C. They will contact you with a date and time to complete admission process. If you need to contact them please call #[phone] or #[phone]. - Diet and Activity Activity: increase activity as tolerated Diet: low salt diet
--- NOTE | 2019-07-06 11:47 | Physician Discharge Referral ---
ExtendedCare Referral Info Transfer To: ECF Provider in Charge after Transfer: PCP Institutional Level of Care: Skilled - Diagnosis (1) Altered mental status Status: Acute (2) Acute psychosis Status: Acute (3) Acute kidney injury superimposed on chronic kidney disease Status: Acute (4) Elevated troponin Status: Acute (5) DVT prophylaxis Status: Acute (6) Diabetes mellitus Status: Chronic (7) Hypertension Status: Chronic (8) Hypothyroidism Status: Chronic - Transfer Medications Prescriptions: Zolpidem [Ambien] 10 mg PO HS 10 Days #10 tablet Haloperidol [Haldol] 0.5 mg PO TID PRN 7 Days #10 tablet PRN Reason: Delerium Home Medications: Atorvastatin [Lipitor] 20 mg PO DAILY 01/28/18 [History] Insulin ASPART [NovoLOG] 35 unit SQ BIDWM 01/28/18 [History] Insulin Glargine [Lantus] 16 units SQ BID 02/26/19 [History] Brimonidine Tartrate/Timolol [Combigan 0.2%-0.5% Eye Drops] 1 drop RIGHT EYE DAILY 05/25/19 [History] Levothyroxine [Synthroid] 25 mcg PO 0630 05/25/19 [History] Sertraline [Zoloft] 50 mg PO DAILY 05/25/19 [History] Ascorbic Acid [Vitamin C] 500 mg PO 0630 #30 tablet 05/29/19 [Rx] Ferrous Sulfate 325 mg PO 0630 #30 tablet 05/29/19 [Rx] cloNIDine HCl [CloNIDine HCl] 0.1 mg PO Q8H #90 tablet 05/29/19 [Rx] Donepezil [Aricept] 5 mg PO HS 07/02/19 [History] Ipratropium/Albuterol Neb [Duoneb] 3 ml IH Q6HR PRN 07/02/19 [History] Quetiapine Fumarate [Seroquel] 100 mg PO HS 07/02/19 [History] Sevelamer [Renvela] 800 mg PO TIDWM 07/02/19 [History] Tamsulosin HCl [Flomax] 0.4 mg PO DAILY 07/02/19 [History] Travoprost [Travatan Z] 1 drop RIGHT EYE HS 07/02/19 [History] predniSONE [PredniSONE] 20 mg PO DAILY 07/02/19 [History] traZODone [TraZODone] 50 - 100 mg PO HS PRN 07/02/19 [History] Haloperidol [Haldol] 0.5 mg PO TID PRN 7 Days #10 tablet 07/06/19 [Rx] Zolpidem [Ambien] 10 mg PO HS 10 Days #10 tablet 07/06/19 [Rx] amLODIPine [Norvasc] 10 mg PO DAILY tablet 07/06/19 [Rx] Allergies/Adverse Reactions: Allergy/AdvReac Type Severity Reaction Status Date / Time Buspirone Allergy Intermediate Confusion Verified 04/21/19 15:13 venlafaxine AdvReac Confusion Verified 04/21/19 15:15 - Respiratory Orders Smoking Cessation: Smoking cessation has been advised. For more information, call the [place] Tobacco Quit Line at 4-251-MERP-NOW. - Treatments List/Other: Prednisone tapering dose : Start at 15 mg PO Daily x 3 days then 10mg PO Daily x 3 days then 5mg PO Daily x 3 days then 2.5mg PO Daily x 3 days and stop. CERTIFICATION: I certify that the transfer of the above named patient to an Extended Care [facility] is necessary for the continuing treatment of the diagnosis listed. The above information is true and accurate reflection of patient's current condition. Confidential - Redisclosure prohibited without a patient's written consent.
[2019-07-08 15:28] LABS: Alpha 2 Globulin (PEP) 0.75 g/dL (0.48-1.05); Beta Globulin (PEP) 0.74 g/dL (0.48-1.10)
[2019-07-09 10:38] LABS: IFE Reflexed NOT DONE
== END 2019-07-06 13:18 | DRG 682 ==
LOC: EMEROOARM 06:13 → 3BNU 06:13 → SUATTDRO 07-03 15:03
PROVIDERS: ADMIT Student in an Organized Health Care Education/Training Program; ATTEND Family Medicine

== ENCOUNTER 2019-10-22 11:03 | Inpatient (IN) ==
[2019-10-22] MEDS ORDERED: methylPREDNISolone 125 MG/2 ML VIAL IVP ONE (11:15)
[2019-10-22] MEDS ORDERED: 0.9 % Sodium Chloride 1,000 ML IVC ONE (11:15)
[2019-10-22] MEDS ORDERED: Ondansetron 4 MG/2 ML VIAL IVP ONE (11:15)
[2019-10-22] MEDS ORDERED: Ipratropium/Albuterol Neb 3 ML IH ONE (11:15)
[2019-10-22 11:37] LABS: Bilirubin,Urine Negative (Negative); Blood,Urine Trace (Negative); Clarity,Urine Clear (Clear); Color,Urine Yellow (Yellow); Glucose,Urine (UA) 250 mg/dL (Normal); Ketones,Urine Negative (Negative); Leukocyte Esterase,Urine Negative (Negative); Nitrite,Urine Negative (Negative); Protein,Urine >=300 mg/dL (Neg-Trace); Specific Gravity,Urine 1.014 (1.010-1.025); Urobilinogen,Urine Normal (Normal)
[2019-10-22 11:42] LABS: Bacteria,Urine None Seen per hpf (None-Few); Hyaline Casts,Urine None Seen per lpf (None-Few); RBC,Urine 0-3 per hpf (0-3); Squamous Epithelial Cell,Urine Moderate per lpf (None-Few); WBC,Urine 0-3 per hpf (0-3)
[2019-10-22 12:23] LABS: Basophils % 0.1 %; Eosinophils % 0.3 %; Hematocrit 29.5 % (37.5-50.1); Hemoglobin 9.6 g/dL (12.9-16.9); Immature Granulocytes % 0.4 % (0-4); Lymphocytes # 0.7 K/mcL (0.6-4.6); Lymphocytes % 8.6 %; Mean Corpuscular HGB Conc 32.5 g/dL (31.6-35.5); Mean Corpuscular Hemoglobin 27.4 pg (28.0-33.3); Mean Platelet Volume 9.1 fL (9.4-12.4); Monocytes # 0.5 K/mcL (0.0-1.3); Monocytes % 5.8 %; Neutrophils # 6.6 K/mcL (1.6-8.9); Platelet Count 197 K/mcL (140-400); Red Blood Count 3.51 M/mcL (4.19-5.50); Segmented Neutrophils % 84.8 %; White Blood Count 7.8 K/mcL (4.3-11.1)
[2019-10-22 12:52] LABS: Troponin I 1.15 ng/mL (< 0.04)
[2019-10-22] MEDS ORDERED: *HR* Heparin 5,000 UNIT/ML VIAL IVP ONE (12:55)
[2019-10-22] MEDS ORDERED: *HR* Heparin 5,000 UNIT/ML VIAL IVP PRN (12:55)
[2019-10-22 13:18] LABS: Albumin 3.7 g/dL (3.5-5.7); Albumin/Globulin Ratio 1.3 (1.1-2.2); Bilirubin,Direct 0.1 mg/dL (0.0-0.2); Bilirubin,Indirect 0.2 mg/dL (0.0-1.0); Bilirubin,Total 0.3 mg/dL (0.3-1.0); Calcium 9.4 mg/dL (8.6-10.3); Globulin 2.8 g/dL (2.4-3.5); Potassium 4.5 mEq/L (3.5-5.1); Total Protein 6.5 g/dL (6.4-8.9)
[2019-10-22] MEDS ORDERED: Furosemide 40 MG/4 ML VIAL IVP ONE (13:23)
[2019-10-22] MEDS: Heparin 25,000 UNIT/250 ML D5W 25,000 UNIT/250 ML IV.SOLN IVC SCH (13:32)
[2019-10-22] MEDS ORDERED: Aspirin 325 MG TABLET PO ONE (13:36)
[2019-10-22 15:00] LABS: Uric Acid 6.6 mg/dL (2.3-7.6)
[2019-10-22 15:02] LABS: Rheumatoid Factor 12 IU/mL (Less than 14)
[2019-10-22 15:26] LABS: Vitamin D 25 Hydroxy 27 ng/mL (30-80)
[2019-10-22 16:14] LABS: Protein/Creatinine Ratio,Urine 6.21 mg/mg (0.00-0.20); Sodium, Urine 65.2 mEq/L
[2019-10-22] MEDS ORDERED: *HR* Dextrose 50 % in Water (Syg) 50 ML SYRINGE IVP PRN (17:23)
[2019-10-22] MEDS ORDERED: Dextrose Gel 15 GM/37.5 ML TUBE PO PRN ×2 (17:23)
[2019-10-22] MEDS ORDERED: D5% in Water 1,000 ML IVC PRN (17:23)
[2019-10-22] MEDS: Insulin LISPRO 300 UNITS/3 ML VIAL SQ SCH ×2 (18:02→21:28)
[2019-10-22] MEDS: Erythromycin OPTH Oint LEFT EYE SCH (21:26)
[2019-10-22] MEDS: Melatonin 3 MG TABLET PO SCH (22:06)
[2019-10-22 23:08] LABS: Hepatitis B Surface Antibody < 3.10 mIU/mL
[2019-10-22 23:09] LABS: Hepatitis B Surface Antigen Nonreactive (Nonreactive)
[2019-10-23] MEDS: *HR* Heparin 5,000 UNIT/ML VIAL IVP PRN (03:15)
[2019-10-23 04:52] LABS: Hematocrit 24.9 % (37.5-50.1); Hemoglobin 8.1 g/dL (12.9-16.9); Mean Corpuscular HGB Conc 32.5 g/dL (31.6-35.5); Mean Corpuscular Hemoglobin 27.4 pg (28.0-33.3); Mean Corpuscular Volume 84.1 fL (83.0-100.0); Mean Platelet Volume 9.5 fL (9.4-12.4); Platelet Count 179 K/mcL (140-400); Red Blood Count 2.96 M/mcL (4.19-5.50); Red Cell Distribution Width 15.9 % (11.5-14.5); White Blood Count 5.2 K/mcL (4.3-11.1)
[2019-10-23 05:17] LABS: Calcium 9.3 mg/dL (8.6-10.3); Potassium 4.9 mEq/L (3.5-5.1); Troponin I 3.37 ng/mL (< 0.04)
[2019-10-23] MEDS ORDERED: 0.9 % Sodium Chloride 250 ML IVC PRN (07:21)
[2019-10-23] MEDS ORDERED: *HR* Heparin 10,000 UNIT/10 ML VIAL IV PRN (07:21)
[2019-10-23] MEDS ORDERED: 0.9 % Sodium Chloride 1,000 ML PRIME SCH (07:30)
[2019-10-23] MEDS: Erythromycin OPTH Oint LEFT EYE SCH ×3 (08:07→22:14)
[2019-10-23] MEDS: Insulin LISPRO 300 UNITS/3 ML VIAL SQ SCH ×4 (08:08→22:14)
[2019-10-23] MEDS: Aspirin 81 MG TAB.CHEW PO SCH (08:15)
[2019-10-23 10:31] LABS: Hematocrit 24.7 % (37.5-50.1); Hemoglobin 8.1 g/dL (12.9-16.9)
[2019-10-23] MEDS ORDERED: Heparin 1,000 UNITS/500 mL 500 ML ONE (10:54)
[2019-10-23] MEDS ORDERED: *HR* Heparin 5,000 UNIT/ML VIAL ONE (11:27)
[2019-10-23] MEDS ORDERED: *HR* FentaNYL (PF) 100 MCG/2 ML VIAL ONE (11:27)
[2019-10-23] MEDS ORDERED: 0.9 % Sodium Chloride 500 ML ONE (11:27)
[2019-10-23] MEDS ORDERED: *HR* FentaNYL (PF) 100 MCG/2 ML VIAL IVP ONE (11:31)
[2019-10-23] MEDS ORDERED: CeFAZolin Premix DUPLEX 2,000 MG/50 ML BAG IVPB ONE ×2 (11:33→12:15)
[2019-10-23] MEDS ORDERED: Perflutren Lipid Microsphere 1.3 ML in 0.9 % Sodium Chloride 8.7 ML IVP ONE (11:38)
[2019-10-23 14:17] LABS: Hematocrit 24.6 % (37.5-50.1); Hemoglobin 7.9 g/dL (12.9-16.9)
[2019-10-23] MEDS: Heparin 25,000 UNIT/250 ML D5W 25,000 UNIT/250 ML IV.SOLN IVC SCH (16:31)
[2019-10-23 18:44] LABS: Hematocrit 25.9 % (37.5-50.1); Hemoglobin 8.5 g/dL (12.9-16.9)
[2019-10-23] MEDS: Melatonin 3 MG TABLET PO SCH (22:13)
[2019-10-24 01:07] LABS: Basophils % 0.2 %; Eosinophils % 0.3 %; Hemoglobin 8.5 g/dL (12.9-16.9); Immature Granulocytes % 0.7 % (0-4); Lymphocytes # 1.4 K/mcL (0.6-4.6); Lymphocytes % 13.7 %; Mean Corpuscular HGB Conc 32.7 g/dL (31.6-35.5); Mean Corpuscular Hemoglobin 27.8 pg (28.0-33.3); Mean Platelet Volume 9.2 fL (9.4-12.4); Monocytes # 1.3 K/mcL (0.0-1.3); Monocytes % 12.2 %; Platelet Count 223 K/mcL (140-400); Red Blood Count 3.06 M/mcL (4.19-5.50); Segmented Neutrophils % 72.9 %
[2019-10-24 01:08] LABS: Neutrophils # 7.7 K/mcL (1.6-8.9); White Blood Count 10.5 K/mcL (4.3-11.1)
[2019-10-24 01:21] LABS: Potassium 4.2 mEq/L (3.5-5.1)
[2019-10-24] MEDS ORDERED: 0.9 % Sodium Chloride 250 ML IVC PRN (06:35)
[2019-10-24] MEDS ORDERED: *HR* Heparin 10,000 UNIT/10 ML VIAL IV PRN (06:35)
[2019-10-24] MEDS ORDERED: 0.9 % Sodium Chloride 1,000 ML PRIME SCH (06:45)
[2019-10-24] MEDS: Aspirin 81 MG TAB.CHEW PO SCH (07:58)
[2019-10-24] MEDS: Insulin LISPRO 300 UNITS/3 ML VIAL SQ SCH ×4 (07:58→20:30)
[2019-10-24] MEDS: Erythromycin OPTH Oint LEFT EYE SCH ×3 (10:01→20:30)
[2019-10-24] MEDS: Heparin 25,000 UNIT/250 ML D5W 25,000 UNIT/250 ML IV.SOLN IVC SCH (13:54)
[2019-10-24] MEDS: cloNIDine HCl 0.1 MG TABLET PO SCH ×2 (18:43→20:27)
[2019-10-24] MEDS ORDERED: Ondansetron ODT 4 MG TAB.RAPDIS SL ONE ×2 (18:56→20:15)
[2019-10-24] MEDS: Melatonin 3 MG TABLET PO SCH (20:27)
[2019-10-24] MEDS: Latanoprost 2.5 ML BOTTLE RIGHT EYE SCH (20:31)
[2019-10-25 01:25] LABS: Hemoglobin 8.4 g/dL (12.9-16.9); Mean Corpuscular HGB Conc 32.3 g/dL (31.6-35.5); Mean Corpuscular Hemoglobin 27.5 pg (28.0-33.3); Mean Platelet Volume 9.4 fL (9.4-12.4); Platelet Count 216 K/mcL (140-400); Red Blood Count 3.06 M/mcL (4.19-5.50); Red Cell Distribution Width 15.9 % (11.5-14.5)
[2019-10-25 01:39] LABS: Calcium 8.6 mg/dL (8.6-10.3); Potassium 3.9 mEq/L (3.5-5.1)
[2019-10-25] MEDS: Levothyroxine 25 MCG TABLET PO SCH (05:39)
[2019-10-25 05:45] LABS: Kappa Qnt Free Light Chains 15.6 mg/dL (0.33-1.94)
[2019-10-25] MEDS: *HR* Heparin 5,000 UNIT/ML VIAL IVP PRN (06:05)
[2019-10-25 06:39] LABS: Urine Collection Volume RANDOM mL
[2019-10-25] MEDS: cloNIDine HCl 0.1 MG TABLET PO SCH ×3 (08:54→20:08)
[2019-10-25] MEDS: Aspirin 81 MG TAB.CHEW PO SCH (08:54)
[2019-10-25] MEDS: Erythromycin OPTH Oint LEFT EYE SCH ×3 (08:54→20:10)
[2019-10-25] MEDS: Ascorbic Acid 500 MG TABLET PO SCH (08:54)
[2019-10-25] MEDS: Insulin LISPRO 300 UNITS/3 ML VIAL SQ SCH ×4 (08:55→20:10)
[2019-10-25] MEDS: Cholecalciferol (D-3) 1,000 UNIT (25MCG) TABLET PO SCH (08:55)
[2019-10-25] MEDS: Heparin 25,000 UNIT/250 ML D5W 25,000 UNIT/250 ML IV.SOLN IVC SCH (11:02)
[2019-10-25] MEDS: Melatonin 3 MG TABLET PO SCH (20:08)
[2019-10-25] MEDS: Latanoprost 2.5 ML BOTTLE RIGHT EYE SCH (20:09)
[2019-10-26 04:28] LABS: Basophils % 0.3 %; Eosinophils # 0.1 K/mcL (0.0-0.6); Eosinophils % 1.4 %; Hematocrit 27.4 % (37.5-50.1); Hemoglobin 8.5 g/dL (12.9-16.9); Immature Granulocytes % 0.5 % (0-4); Lymphocytes # 1.2 K/mcL (0.6-4.6); Mean Corpuscular Hemoglobin 27.3 pg (28.0-33.3); Mean Corpuscular Volume 88.1 fL (83.0-100.0); Mean Platelet Volume 9.2 fL (9.4-12.4); Monocytes # 1.4 K/mcL (0.0-1.3); Monocytes % 13.4 %; Neutrophils # 7.3 K/mcL (1.6-8.9); Platelet Count 211 K/mcL (140-400); Red Blood Count 3.11 M/mcL (4.19-5.50); Red Cell Distribution Width 15.9 % (11.5-14.5); Segmented Neutrophils % 72.4 %; White Blood Count 10.1 K/mcL (4.3-11.1)
[2019-10-26 04:47] LABS: Calcium 8.9 mg/dL (8.6-10.3); Magnesium 2.3 mg/dL (1.6-2.6); Potassium 4.2 mEq/L (3.5-5.1)
[2019-10-26 05:25] LABS: Alpha 2 Globulin (PEP) 0.65 g/dL (0.48-1.05)
[2019-10-26] MEDS: Levothyroxine 25 MCG TABLET PO SCH (05:45)
[2019-10-26] MEDS: Heparin 25,000 UNIT/250 ML D5W 25,000 UNIT/250 ML IV.SOLN IVC SCH (06:04)
[2019-10-26] MEDS ORDERED: 0.9 % Sodium Chloride 250 ML IVC PRN (07:55)
[2019-10-26] MEDS: Insulin LISPRO 300 UNITS/3 ML VIAL SQ SCH ×4 (09:16→20:39)
[2019-10-26] MEDS: cloNIDine HCl 0.1 MG TABLET PO SCH ×3 (09:21→20:38)
[2019-10-26] MEDS: Aspirin 81 MG TAB.CHEW PO SCH (09:21)
[2019-10-26] MEDS: Ascorbic Acid 500 MG TABLET PO SCH (09:21)
[2019-10-26] MEDS: Cholecalciferol (D-3) 1,000 UNIT (25MCG) TABLET PO SCH (09:21)
[2019-10-26] MEDS: Erythromycin OPTH Oint LEFT EYE SCH ×3 (09:26→20:39)
[2019-10-26] MEDS: Ondansetron 4 MG/2 ML VIAL IVP PRN ×2 (10:32→17:46)
[2019-10-26 12:07] LABS: Hematocrit 27.3 % (37.5-50.1); Hemoglobin 8.6 g/dL (12.9-16.9)
[2019-10-26 15:15] LABS: IFE Reflexed NOT DONE
[2019-10-26 16:22] LABS: Hematocrit 28.5 % (37.5-50.1); Hemoglobin 9.3 g/dL (12.9-16.9)
[2019-10-26] MEDS: Latanoprost 2.5 ML BOTTLE RIGHT EYE SCH (20:38)
[2019-10-26] MEDS: Melatonin 3 MG TABLET PO SCH (20:38)
[2019-10-26 21:33] LABS: Hematocrit 27.7 % (37.5-50.1)
[2019-10-27 01:53] LABS: Mean Corpuscular HGB Conc 32.1 g/dL (31.6-35.5); Mean Corpuscular Hemoglobin 27.4 pg (28.0-33.3); Mean Corpuscular Volume 85.1 fL (83.0-100.0); Mean Platelet Volume 9.1 fL (9.4-12.4); Platelet Count 229 K/mcL (140-400); Red Blood Count 3.29 M/mcL (4.19-5.50); Red Cell Distribution Width 15.9 % (11.5-14.5); White Blood Count 11.8 K/mcL (4.3-11.1)
[2019-10-27 02:12] LABS: Calcium 9.1 mg/dL (8.6-10.3)
[2019-10-27] MEDS: Levothyroxine 25 MCG TABLET PO SCH (06:15)
[2019-10-27] MEDS: Insulin LISPRO 300 UNITS/3 ML VIAL SQ SCH ×4 (08:32→21:05)
[2019-10-27] MEDS: Aspirin 81 MG TAB.CHEW PO SCH (08:42)
[2019-10-27] MEDS: Cholecalciferol (D-3) 1,000 UNIT (25MCG) TABLET PO SCH (08:42)
[2019-10-27] MEDS: cloNIDine HCl 0.1 MG TABLET PO SCH ×3 (08:42→21:01)
[2019-10-27] MEDS: Ascorbic Acid 500 MG TABLET PO SCH (08:43)
[2019-10-27] MEDS: Sennosides 8.6 MG TABLET PO PRN (08:49)
[2019-10-27] MEDS: Erythromycin OPTH Oint LEFT EYE SCH ×3 (08:50→21:07)
[2019-10-27] MEDS: Melatonin 3 MG TABLET PO SCH (21:01)
[2019-10-27] MEDS: Latanoprost 2.5 ML BOTTLE RIGHT EYE SCH (21:07)
[2019-10-28] MEDS: Aspirin 81 MG TAB.CHEW PO SCH (08:34)
[2019-10-28] MEDS: Ascorbic Acid 500 MG TABLET PO SCH (08:34)
[2019-10-28] MEDS: Levothyroxine 25 MCG TABLET PO SCH (08:34)
[2019-10-28] MEDS: Cholecalciferol (D-3) 1,000 UNIT (25MCG) TABLET PO SCH (08:34)
[2019-10-28] MEDS: Insulin LISPRO 300 UNITS/3 ML VIAL SQ SCH ×4 (08:35→21:38)
[2019-10-28] MEDS: Erythromycin OPTH Oint LEFT EYE SCH ×3 (08:36→21:38)
[2019-10-28 10:14] LABS: Hematocrit 25.7 % (37.5-50.1); Hemoglobin 8.3 g/dL (12.9-16.9); Mean Corpuscular HGB Conc 32.3 g/dL (31.6-35.5); Mean Corpuscular Hemoglobin 27.9 pg (28.0-33.3); Mean Corpuscular Volume 86.2 fL (83.0-100.0); Mean Platelet Volume 9.7 fL (9.4-12.4); Platelet Count 269 K/mcL (140-400); Red Blood Count 2.98 M/mcL (4.19-5.50); Red Cell Distribution Width 15.6 % (11.5-14.5)
[2019-10-28 10:31] LABS: Calcium 8.7 mg/dL (8.6-10.3); Potassium 4.3 mEq/L (3.5-5.1)
[2019-10-28] MEDS: cloNIDine HCl 0.1 MG TABLET PO SCH ×3 (11:00→21:38)
[2019-10-28 13:12] LABS: Hematocrit 26.8 % (37.5-50.1); Hemoglobin 8.3 g/dL (12.9-16.9)
[2019-10-28] MEDS ORDERED: Sennosides 8.6 MG TABLET PO ONE (13:57)
[2019-10-28] MEDS ORDERED: Lidocaine 4% CREAM (LMX) 5 GM TP PRN (16:39)
[2019-10-28] MEDS: Ondansetron 4 MG/2 ML VIAL IVP PRN (16:57)
[2019-10-28] MEDS: Acetaminophen 325 MG TABLET PO PRN (17:00)
[2019-10-28] MEDS: Melatonin 3 MG TABLET PO SCH (21:38)
[2019-10-28] MEDS: Latanoprost 2.5 ML BOTTLE RIGHT EYE SCH (21:52)
[2019-10-29] MEDS: Levothyroxine 25 MCG TABLET PO SCH (05:15)
[2019-10-29] MEDS ORDERED: 0.9 % Sodium Chloride 250 ML IVC PRN (07:04)
[2019-10-29] MEDS: Aspirin 81 MG TAB.CHEW PO SCH (10:11)
[2019-10-29] MEDS: cloNIDine HCl 0.1 MG TABLET PO SCH ×3 (10:11→20:10)
[2019-10-29] MEDS: Erythromycin OPTH Oint LEFT EYE SCH ×3 (10:11→20:13)
[2019-10-29] MEDS: Insulin LISPRO 300 UNITS/3 ML VIAL SQ SCH ×3 (10:11→16:44)
[2019-10-29] MEDS: Cholecalciferol (D-3) 1,000 UNIT (25MCG) TABLET PO SCH (10:12)
[2019-10-29] MEDS: Ascorbic Acid 500 MG TABLET PO SCH (10:12)
[2019-10-29 10:41] LABS: Basophils % 0.3 %; Eosinophils # 0.1 K/mcL (0.0-0.6); Hemoglobin 8.7 g/dL (12.9-16.9); Immature Granulocytes % 0.9 % (0-4); Lymphocytes # 1.1 K/mcL (0.6-4.6); Lymphocytes % 8.8 %; Mean Corpuscular HGB Conc 32.2 g/dL (31.6-35.5); Mean Corpuscular Hemoglobin 27.8 pg (28.0-33.3); Mean Corpuscular Volume 86.3 fL (83.0-100.0); Monocytes # 1.5 K/mcL (0.0-1.3); Monocytes % 12.6 %; Neutrophils # 9.2 K/mcL (1.6-8.9); Platelet Count 288 K/mcL (140-400); Red Blood Count 3.13 M/mcL (4.19-5.50); Red Cell Distribution Width 15.1 % (11.5-14.5); Segmented Neutrophils % 76.4 %
[2019-10-29 11:00] LABS: Calcium 8.7 mg/dL (8.6-10.3); Potassium 3.6 mEq/L (3.5-5.1)
[2019-10-29] MEDS ORDERED: *HR* Heparin 5,000 UNIT/ML VIAL IVP PRN ×2 (11:23)
[2019-10-29] MEDS ORDERED: Heparin 25,000 UNIT/250 ML D5W 25,000 UNIT/250 ML IV.SOLN IVC SCH (11:30)
[2019-10-29 13:46] LABS: INR 1.1; Prothrombin Time 12.8 Seconds (9.4-12.1)
[2019-10-29 13:58] LABS: Hematocrit 26.7 % (37.5-50.1); Hemoglobin 8.2 g/dL (12.9-16.9); Mean Corpuscular HGB Conc 30.7 g/dL (31.6-35.5); Mean Corpuscular Hemoglobin 27.3 pg (28.0-33.3); Mean Platelet Volume 9.6 fL (9.4-12.4); Platelet Count 250 K/mcL (140-400); Red Cell Distribution Width 15.1 % (11.5-14.5); White Blood Count 11.9 K/mcL (4.3-11.1)
[2019-10-29] MEDS: Melatonin 3 MG TABLET PO SCH (20:10)
[2019-10-29] MEDS: Latanoprost 2.5 ML BOTTLE RIGHT EYE SCH (20:14)
[2019-10-29] MEDS ORDERED: Haloperidol Lactate 5 MG/ML VIAL IVP ONE (20:45)
[2019-10-29] MEDS ORDERED: *HR* Promethazine 25 MG/ML VIAL IVP ONE (20:46)
[2019-10-30] MEDS ORDERED: Melatonin 3 MG TABLET PO ONE (00:24)
[2019-10-30] MEDS: Insulin LISPRO 300 UNITS/3 ML VIAL SQ SCH ×5 (00:26→20:24)
[2019-10-30 00:58] LABS: INR 1.1; Prothrombin Time 12.7 Seconds (9.4-12.1)
[2019-10-30 01:04] LABS: Basophils % 0.4 %; Eosinophils # 0.3 K/mcL (0.0-0.6); Hematocrit 24.4 % (37.5-50.1); Hemoglobin 7.8 g/dL (12.9-16.9); Immature Granulocytes % 0.5 % (0-4); Lymphocytes # 1.1 K/mcL (0.6-4.6); Lymphocytes % 13.2 %; Mean Corpuscular Hemoglobin 27.2 pg (28.0-33.3); Mean Platelet Volume 9.7 fL (9.4-12.4); Neutrophils # 5.7 K/mcL (1.6-8.9); Platelet Count 303 K/mcL (140-400); Red Blood Count 2.87 M/mcL (4.19-5.50); Segmented Neutrophils % 69.9 %; White Blood Count 8.2 K/mcL (4.3-11.1)
[2019-10-30 01:10] LABS: Calcium 8.5 mg/dL (8.6-10.3); Potassium 4.1 mEq/L (3.5-5.1)
[2019-10-30] MEDS: Levothyroxine 25 MCG TABLET PO SCH (05:35)
[2019-10-30] MEDS: Aspirin 81 MG TAB.CHEW PO SCH (08:41)
[2019-10-30] MEDS: Erythromycin OPTH Oint LEFT EYE SCH (08:41)
[2019-10-30] MEDS: cloNIDine HCl 0.1 MG TABLET PO SCH ×3 (08:41→20:37)
[2019-10-30] MEDS: Cholecalciferol (D-3) 1,000 UNIT (25MCG) TABLET PO SCH (08:41)
[2019-10-30] MEDS: Ascorbic Acid 500 MG TABLET PO SCH (08:41)
[2019-10-30 08:57] LABS: Hematocrit 24.3 % (37.5-50.1); Hemoglobin 7.9 g/dL (12.9-16.9)
[2019-10-30] MEDS ORDERED: 0.9 % Sodium Chloride 250 ML ONE (14:08)
[2019-10-30] MEDS: Sennosides 8.6 MG TABLET PO PRN (14:32)
[2019-10-30 19:53] LABS: Hematocrit 25.3 % (37.5-50.1); Hemoglobin 8.3 g/dL (12.9-16.9)
[2019-10-30] MEDS: Melatonin 3 MG TABLET PO SCH (20:37)
[2019-10-30] MEDS: Latanoprost 2.5 ML BOTTLE RIGHT EYE SCH (23:49)
[2019-10-30] MEDS ORDERED: *HR* LORazepam 2 MG/ML VIAL IVP ONE (23:58)
[2019-10-31 05:53] LABS: Hematocrit 28.1 % (37.5-50.1)
[2019-10-31 05:54] LABS: Basophils # 0.1 K/mcL (0.0-0.2); Basophils % 0.5 %; Eosinophils # 0.5 K/mcL (0.0-0.6); Eosinophils % 5.1 %; Hematocrit 28.1 % (37.5-50.1); Hemoglobin 9.2 g/dL (12.9-16.9); Immature Granulocytes % 1.3 % (0-4); Lymphocytes # 1.2 K/mcL (0.6-4.6); Lymphocytes % 11.9 %; Mean Corpuscular HGB Conc 32.7 g/dL (31.6-35.5); Mean Corpuscular Hemoglobin 27.8 pg (28.0-33.3); Mean Corpuscular Volume 84.9 fL (83.0-100.0); Mean Platelet Volume 9.4 fL (9.4-12.4); Monocytes # 1.1 K/mcL (0.0-1.3); Monocytes % 10.4 %; Neutrophils # 7.3 K/mcL (1.6-8.9); Platelet Count 333 K/mcL (140-400); Red Blood Count 3.31 M/mcL (4.19-5.50); Red Cell Distribution Width 14.6 % (11.5-14.5); Segmented Neutrophils % 70.8 %; White Blood Count 10.2 K/mcL (4.3-11.1)
[2019-10-31] MEDS: Levothyroxine 25 MCG TABLET PO SCH (06:04)
[2019-10-31 06:15] LABS: Calcium 8.9 mg/dL (8.6-10.3); Potassium 3.9 mEq/L (3.5-5.1)
[2019-10-31] MEDS ORDERED: 0.9 % Sodium Chloride 250 ML IVC PRN (07:18)
[2019-10-31] MEDS ORDERED: *HR* FentaNYL (PF) 100 MCG/2 ML VIAL IVP ONE (08:04)
[2019-10-31] MEDS ORDERED: CeFAZolin Syringe 2,000MG/20 ML SYR IVPB ONE (08:04)
[2019-10-31] MEDS ORDERED: *HR* Midazolam HCl 2 MG/2 ML VIAL IVP ONE (08:04)
[2019-10-31] MEDS ORDERED: Heparin 1,000 UNITS/500 mL 500 ML ONE ×2 (08:07→10:41)
[2019-10-31] MEDS ORDERED: 0.9 % Sodium Chloride 500 ML ONE ×2 (08:12→08:22)
[2019-10-31] MEDS ORDERED: *HR* Heparin 5,000 UNIT/ML VIAL ONE ×2 (08:42→08:49)
[2019-10-31] MEDS ORDERED: CeFAZolin Premix DUPLEX 2,000 MG/50 ML BAG IVPB ONE (08:45)
[2019-10-31] MEDS: Insulin LISPRO 300 UNITS/3 ML VIAL SQ SCH ×4 (09:03→20:33)
[2019-10-31] MEDS: Aspirin 81 MG TAB.CHEW PO SCH (09:14)
[2019-10-31] MEDS: Cholecalciferol (D-3) 1,000 UNIT (25MCG) TABLET PO SCH (09:14)
[2019-10-31] MEDS: cloNIDine HCl 0.1 MG TABLET PO SCH ×3 (09:15→20:28)
[2019-10-31] MEDS: Ascorbic Acid 500 MG TABLET PO SCH (09:15)
[2019-10-31] MEDS ORDERED: *HR* FentaNYL (PF) 100 MCG/2 ML VIAL ONE (10:40)
[2019-10-31] MEDS ORDERED: *HR* Midazolam HCl 2 MG/2 ML VIAL ONE (10:41)
[2019-10-31] MEDS ORDERED: Nitroglycerin 1,000 MCG/10 ML VIAL IV ONE (10:41)
[2019-10-31] MEDS ORDERED: 0.9 % Sodium Chloride 1,000 ML ONE (10:41)
[2019-10-31] MEDS ORDERED: *HR* Heparin 10,000 UNIT/10 ML VIAL ONE (10:41)
[2019-10-31] MEDS ORDERED: ISOVUE-370 200 ML INFUS..BTL ONE (10:41)
[2019-10-31] MEDS ORDERED: *HR* Heparin 10,000 UNIT/10 ML VIAL IV PRN (18:00)
[2019-10-31] MEDS: Melatonin 3 MG TABLET PO SCH (20:28)
[2019-10-31] MEDS: Sennosides 8.6 MG TABLET PO PRN (21:11)
[2019-10-31] MEDS: Latanoprost 2.5 ML BOTTLE RIGHT EYE SCH (21:39)
[2019-11-01] MEDS: Acetaminophen 325 MG TABLET PO PRN (04:26)
[2019-11-01 04:51] LABS: Hematocrit 26.1 % (37.5-50.1); Hemoglobin 8.6 g/dL (12.9-16.9); Mean Corpuscular Hemoglobin 27.7 pg (28.0-33.3); Mean Corpuscular Volume 84.2 fL (83.0-100.0); Platelet Count 288 K/mcL (140-400); Red Cell Distribution Width 14.8 % (11.5-14.5); White Blood Count 7.2 K/mcL (4.3-11.1)
[2019-11-01 05:09] LABS: Calcium 8.8 mg/dL (8.6-10.3); Potassium 3.7 mEq/L (3.5-5.1)
[2019-11-01] MEDS: Aspirin 81 MG TAB.CHEW PO SCH (09:16)
[2019-11-01] MEDS: Cholecalciferol (D-3) 1,000 UNIT (25MCG) TABLET PO SCH (09:16)
[2019-11-01] MEDS: Levothyroxine 25 MCG TABLET PO SCH (09:16)
[2019-11-01] MEDS: Ascorbic Acid 500 MG TABLET PO SCH (09:16)
[2019-11-01] MEDS: Insulin LISPRO 300 UNITS/3 ML VIAL SQ SCH ×4 (09:17→20:27)
[2019-11-01] MEDS: cloNIDine HCl 0.1 MG TABLET PO SCH ×3 (09:29→20:29)
[2019-11-01 18:21] LABS: Hematocrit 28.3 % (37.5-50.1)
[2019-11-01] MEDS: Melatonin 3 MG TABLET PO SCH (20:27)
[2019-11-01] MEDS: Latanoprost 2.5 ML BOTTLE RIGHT EYE SCH (20:35)
[2019-11-02] MEDS: Levothyroxine 25 MCG TABLET PO SCH (06:29)
[2019-11-02] MEDS ORDERED: 0.9 % Sodium Chloride 250 ML IVC PRN (06:34)
[2019-11-02 06:47] LABS: Hemoglobin 9.2 g/dL (12.9-16.9); Mean Corpuscular HGB Conc 32.9 g/dL (31.6-35.5); Mean Corpuscular Hemoglobin 28.3 pg (28.0-33.3); Mean Corpuscular Volume 86.2 fL (83.0-100.0); Mean Platelet Volume 8.7 fL (9.4-12.4); Platelet Count 306 K/mcL (140-400); Red Blood Count 3.25 M/mcL (4.19-5.50); Red Cell Distribution Width 14.7 % (11.5-14.5); White Blood Count 9.3 K/mcL (4.3-11.1)
[2019-11-02 07:22] LABS: Calcium 9.1 mg/dL (8.6-10.3); Potassium 4.1 mEq/L (3.5-5.1)
[2019-11-02] MEDS: cloNIDine HCl 0.1 MG TABLET PO SCH ×3 (09:00→21:57)
[2019-11-02] MEDS: Insulin LISPRO 300 UNITS/3 ML VIAL SQ SCH ×4 (10:16→22:00)
[2019-11-02] MEDS ORDERED: *HR* Heparin 10,000 UNIT/10 ML VIAL IV PRN (10:43)
[2019-11-02] MEDS: Simethicone 80 MG TAB.CHEW PO PRN ×2 (13:21→18:21)
[2019-11-02] MEDS: Aspirin 81 MG TAB.CHEW PO SCH (13:21)
[2019-11-02] MEDS: Cholecalciferol (D-3) 1,000 UNIT (25MCG) TABLET PO SCH (13:22)
[2019-11-02] MEDS: Ascorbic Acid 500 MG TABLET PO SCH (13:22)
[2019-11-02] MEDS: Melatonin 3 MG TABLET PO SCH (21:58)
[2019-11-03] MEDS: Latanoprost 2.5 ML BOTTLE RIGHT EYE SCH ×2 (01:05→21:03)
[2019-11-03] MEDS: Sennosides 8.6 MG TABLET PO PRN (03:57)
[2019-11-03 04:13] LABS: Calcium 8.8 mg/dL (8.6-10.3); Potassium 3.8 mEq/L (3.5-5.1)
[2019-11-03] MEDS: Levothyroxine 25 MCG TABLET PO SCH (05:41)
[2019-11-03] MEDS: Ascorbic Acid 500 MG TABLET PO SCH (09:20)
[2019-11-03] MEDS: cloNIDine HCl 0.1 MG TABLET PO SCH ×3 (09:20→20:59)
[2019-11-03] MEDS: Aspirin 81 MG TAB.CHEW PO SCH (09:20)
[2019-11-03] MEDS: Cholecalciferol (D-3) 1,000 UNIT (25MCG) TABLET PO SCH (09:20)
[2019-11-03] MEDS: Insulin LISPRO 300 UNITS/3 ML VIAL SQ SCH ×4 (09:20→21:04)
[2019-11-03] MEDS: Melatonin 3 MG TABLET PO SCH (21:00)
[2019-11-04] MEDS ORDERED: Ziprasidone 10 MG in Water for inj. (sterile) 0.5 ML IM ONE (01:29)
[2019-11-04] MEDS: Levothyroxine 25 MCG TABLET PO SCH (05:21)
[2019-11-04 05:57] LABS: Basophils % 0.4 %; Eosinophils # 0.4 K/mcL (0.0-0.6); Hematocrit 26.4 % (37.5-50.1); Hemoglobin 8.3 g/dL (12.9-16.9); Immature Granulocytes % 1.2 % (0-4); Lymphocytes # 1.6 K/mcL (0.6-4.6); Lymphocytes % 17.3 %; Mean Corpuscular HGB Conc 31.4 g/dL (31.6-35.5); Mean Corpuscular Volume 89.2 fL (83.0-100.0); Monocytes # 0.9 K/mcL (0.0-1.3); Monocytes % 9.5 %; Neutrophils # 6.3 K/mcL (1.6-8.9); Platelet Count 288 K/mcL (140-400); Red Blood Count 2.96 M/mcL (4.19-5.50); Segmented Neutrophils % 67.6 %; White Blood Count 9.3 K/mcL (4.3-11.1)
[2019-11-04 06:09] LABS: Potassium 3.6 mEq/L (3.5-5.1)
[2019-11-04] MEDS: Insulin LISPRO 300 UNITS/3 ML VIAL SQ SCH ×4 (08:00→21:03)
[2019-11-04] MEDS: Cholecalciferol (D-3) 1,000 UNIT (25MCG) TABLET PO SCH (11:21)
[2019-11-04] MEDS: Ascorbic Acid 500 MG TABLET PO SCH (11:21)
[2019-11-04] MEDS: cloNIDine HCl 0.1 MG TABLET PO SCH ×3 (11:21→21:02)
[2019-11-04] MEDS: Aspirin 81 MG TAB.CHEW PO SCH (11:22)
[2019-11-04] MEDS: Latanoprost 2.5 ML BOTTLE RIGHT EYE SCH (21:11)
[2019-11-04] MEDS: Melatonin 3 MG TABLET PO SCH (21:12)
[2019-11-05] MEDS: Levothyroxine 25 MCG TABLET PO SCH (04:54)
[2019-11-05] MEDS: cloNIDine HCl 0.1 MG TABLET PO SCH (08:09)
[2019-11-05] MEDS: Cholecalciferol (D-3) 1,000 UNIT (25MCG) TABLET PO SCH (08:09)
[2019-11-05] MEDS: Ascorbic Acid 500 MG TABLET PO SCH (08:09)
[2019-11-05] MEDS: Aspirin 81 MG TAB.CHEW PO SCH (08:09)
[2019-11-05] MEDS: Insulin LISPRO 300 UNITS/3 ML VIAL SQ SCH ×2 (08:10→11:52)
[2019-11-05] MEDS ORDERED: *HR* Heparin 10,000 UNIT/10 ML VIAL IV PRN ×2 (08:13)
[2019-11-05] MEDS ORDERED: 0.9 % Sodium Chloride 250 ML IVC PRN (08:13)
[2019-11-05] MEDS: Acetaminophen 325 MG TABLET PO PRN (10:44)
[2019-11-05] MEDS ORDERED: Albumin 25% 25gram/100mL 25 GM/100 ML IV.SOLN ONE (10:57)
[2019-11-05] MEDS ORDERED: Albumin 25% 25gram/100mL 25 GM/100 ML IV.SOLN IVPB ONE (11:11)
[2019-11-05 13:53] VITALS: BP 101/61
== END 2019-11-05 15:10 | disposition short-term general hospital (02) | DRG 280 ==
LOC: 2NNU 11:03 → EMEROOARM 11:03 → SUATTDRO 13:40 → 2NNU 14:40 → SUATTDRO 10-23 19:30 → 2ANU 10-28 10:51
PROVIDERS: ADMIT Family Medicine; ATTEND Internal Medicine
PROC: IRPERMA (2019-10-23 12:00)

== ENCOUNTER 2019-11-24 12:20 | Inpatient (IN) ==
[2019-11-24] MEDS ORDERED: Bacitracin/Polymyxin B PACKET TP ONE (12:58)
[2019-11-24 15:15] LABS: Bilirubin,Urine Negative (Negative); Blood,Urine Negative (Negative); Clarity,Urine Clear (Clear); Color,Urine Yellow (Yellow); Glucose,Urine (UA) Normal (Normal); Ketones,Urine Negative (Negative); Leukocyte Esterase,Urine Negative (Negative); Nitrite,Urine Negative (Negative); PH,Urine 8.5 pH Units (5.0-8.0); Protein,Urine 100 mg/dL (Neg-Trace); Specific Gravity,Urine 1.007 (1.010-1.025); Urobilinogen,Urine Normal (Normal)
[2019-11-24 15:17] LABS: Bacteria,Urine None Seen per hpf (None-Few); Hyaline Casts,Urine None Seen per lpf (None-Few); RBC,Urine 0-3 per hpf (0-3); Squamous Epithelial Cell,Urine Moderate per lpf (None-Few); WBC,Urine 0-3 per hpf (0-3)
[2019-11-24 15:24] LABS: Amphetamine Screen,Urine Negative ng/mL (Cutoff=1000); Barbiturate Screen,Urine Negative ng/mL (Cutoff=200); Benzodiazepines Screen,Urine Negative ng/mL (Cutoff=200); Cannabinoid Screen,Urine Negative ng/mL (Cutoff = 50); Cocaine Screen,Urine Negative ng/mL (Cutoff= 300); Opiate Screen,Urine Negative ng/mL (Cutoff=300); Phencyclidine Screen,Urine Negative ng/mL (Cutoff=25)
[2019-11-24 16:41] LABS: Basophils % 0.4 %; Eosinophils % 0.1 %; Hematocrit 33.4 % (37.5-50.1); Hemoglobin 10.8 g/dL (12.9-16.9); Immature Granulocytes % 0.4 % (0-4); Lymphocytes # 0.8 K/mcL (0.6-4.6); Lymphocytes % 11.1 %; Mean Corpuscular HGB Conc 32.3 g/dL (31.6-35.5); Mean Corpuscular Hemoglobin 29.3 pg (28.0-33.3); Mean Corpuscular Volume 90.5 fL (83.0-100.0); Mean Platelet Volume 8.9 fL (9.4-12.4); Monocytes # 0.6 K/mcL (0.0-1.3); Monocytes % 8.4 %; Neutrophils # 5.5 K/mcL (1.6-8.9); Platelet Count 259 K/mcL (140-400); Red Blood Count 3.69 M/mcL (4.19-5.50); Red Cell Distribution Width 18.3 % (11.5-14.5); Segmented Neutrophils % 79.6 %; White Blood Count 6.9 K/mcL (4.3-11.1)
[2019-11-24 17:07] LABS: Alanine Aminotransferase 12 Units/L (7-52); Albumin/Globulin Ratio 1.3 (1.1-2.2); Alkaline Phosphatase 115 Units/L (34-104); Aspartate Amino Transferase 17 Units/L (13-39); BUN/Creatinine Ratio 4 (6-26); Bilirubin,Direct 0.1 mg/dL (0.0-0.2); Bilirubin,Indirect 0.2 mg/dL (0.0-1.0); Bilirubin,Total 0.3 mg/dL (0.3-1.0); Blood Urea Nitrogen 17 mg/dL (8-23); Carbon Dioxide 30 mEq/L (23-29); Chloride 96 mEq/L (98-107); Ethanol < 10 mg/dL (Less than 10); Glucose 98 mg/dL (70-105); INR 0.9; Osmolality,Calculated 290 (280-300); Prothrombin Time 10.7 Seconds (9.4-12.1); Sodium 139 mEq/L (136-145); Troponin I 0.03 ng/mL (< 0.04); eGFR For African Americans 16 (> 60); eGFR For Non-African Americans 13 (> 60)
[2019-11-24 19:21] LABS: Magnesium 2.1 mg/dL (1.6-2.6); Phosphorous 3.2 mg/dL (2.7-4.5)
[2019-11-24] MEDS ORDERED: Naloxone 0.4 MG/ML INJ IVP PRN (19:50)
[2019-11-24] MEDS ORDERED: Ipratropium/Albuterol Neb 3 ML IH PRN (19:52)
[2019-11-24] MEDS ORDERED: *HR* Metoprolol 5 MG/5 ML VIAL IVP PRN (20:51)
[2019-11-24] MEDS: Insulin LISPRO 300 UNITS/3 ML VIAL SQ SCH (23:15)
[2019-11-24] MEDS ORDERED: Melatonin 3 MG TABLET PO ONE (23:40)
[2019-11-25] MEDS: *HR* Heparin 5,000 UNIT/ML VIAL SQ SCH ×2 (04:52→17:47)
[2019-11-25 07:38] LABS: Calcium 9.7 mg/dL (8.6-10.3); Potassium 3.8 mEq/L (3.5-5.1)
[2019-11-25] MEDS: Insulin LISPRO 300 UNITS/3 ML VIAL SQ SCH ×4 (08:18→20:20)
[2019-11-25] MEDS ORDERED: Haloperidol Lactate 5 MG/ML VIAL IVP ONE ×2 (13:28→20:50)
[2019-11-25] MEDS ORDERED: *HR* Promethazine 25 MG/ML VIAL IVP ONE (21:07)
[2019-11-25] MEDS ORDERED: Ziprasidone 10 MG in Water for inj. (sterile) 0.5 ML IM ONE (21:20)
[2019-11-26] MEDS ORDERED: *HR* Metoprolol 5 MG/5 ML VIAL IVP ONE (01:04)
[2019-11-26] MEDS: *HR* Heparin 5,000 UNIT/ML VIAL SQ SCH ×2 (05:21→17:33)
[2019-11-26 06:41] LABS: Calcium 9.4 mg/dL (8.6-10.3); Potassium 3.8 mEq/L (3.5-5.1)
[2019-11-26] MEDS ORDERED: Nitroglycerin 0.4 MG TAB.SUBL SL PRN (07:07)
[2019-11-26] MEDS ORDERED: Ondansetron ODT 4 MG TAB.RAPDIS PO PRN (07:07)
[2019-11-26] MEDS ORDERED: NON-FORMULARY MEDICATION 1 EACH EACH (Cholecalciferol (Vitamin D3) [Vitamin D3] 5,000 UNIT PO SCH (08:00)
[2019-11-26] MEDS ORDERED: Levothyroxine 25 MCG TABLET PO SCH (08:00)
[2019-11-26] MEDS ORDERED: Famotidine 20 MG TABLET PO SCH (08:00)
[2019-11-26 08:25] LABS: Hepatitis B Surface Antibody < 3.10 mIU/mL
[2019-11-26 08:35] LABS: Hepatitis B Surface Antigen Nonreactive (Nonreactive)
[2019-11-26] MEDS: Aspirin 81 MG TAB.CHEW PO SCH (08:35)
[2019-11-26] MEDS: Ascorbic Acid 500 MG TABLET PO SCH (08:36)
[2019-11-26] MEDS: Cholecalciferol (D-3) 1,000 UNIT (25MCG) TABLET PO SCH (08:36)
[2019-11-26] MEDS: amLODIPine 5 MG TABLET PO SCH (08:40)
[2019-11-26] MEDS: Insulin LISPRO 300 UNITS/3 ML VIAL SQ SCH ×4 (08:40→20:30)
[2019-11-26] MEDS: Brinzolamide 1% 10 ML BOTTLE RIGHT EYE SCH ×3 (08:50→20:38)
[2019-11-26] MEDS ORDERED: *HR* Heparin 10,000 UNIT/10 ML VIAL IV PRN (09:21)
[2019-11-26] MEDS ORDERED: 0.9 % Sodium Chloride 250 ML IVC PRN (09:21)
[2019-11-26] MEDS ORDERED: 0.9 % Sodium Chloride 1,000 ML PRIME SCH (09:30)
[2019-11-26] MEDS ORDERED: *HR* Promethazine 25 MG/ML VIAL IVP PRN (10:35)
[2019-11-26] MEDS: Latanoprost 2.5 ML BOTTLE RIGHT EYE SCH (20:30)
[2019-11-26] MEDS: Melatonin 3 MG TABLET PO SCH (20:39)
[2019-11-27] MEDS: *HR* Heparin 5,000 UNIT/ML VIAL SQ SCH ×2 (06:16→18:04)
[2019-11-27] MEDS: Famotidine 20 MG TABLET PO SCH (06:16)
[2019-11-27 07:23] LABS: Basophils # 0.1 K/mcL (0.0-0.2); Basophils % 0.9 %; Eosinophils # 0.3 K/mcL (0.0-0.6); Eosinophils % 5.8 %; Hematocrit 33.2 % (37.5-50.1); Hemoglobin 10.3 g/dL (12.9-16.9); Immature Granulocytes % 0.2 % (0-4); Lymphocytes # 1.3 K/mcL (0.6-4.6); Lymphocytes % 23.7 %; Mean Corpuscular Hemoglobin 28.9 pg (28.0-33.3); Monocytes # 0.7 K/mcL (0.0-1.3); Monocytes % 12.1 %; Neutrophils # 3.1 K/mcL (1.6-8.9); Platelet Count 219 K/mcL (140-400); Red Blood Count 3.57 M/mcL (4.19-5.50); Red Cell Distribution Width 17.8 % (11.5-14.5); Segmented Neutrophils % 57.3 %; White Blood Count 5.4 K/mcL (4.3-11.1)
[2019-11-27 07:43] LABS: Calcium 9.2 mg/dL (8.6-10.3); Potassium 3.5 mEq/L (3.5-5.1)
[2019-11-27] MEDS: Aspirin 81 MG TAB.CHEW PO SCH (08:46)
[2019-11-27] MEDS: amLODIPine 5 MG TABLET PO SCH (08:46)
[2019-11-27] MEDS: Cholecalciferol (D-3) 1,000 UNIT (25MCG) TABLET PO SCH (08:46)
[2019-11-27] MEDS: Brinzolamide 1% 10 ML BOTTLE RIGHT EYE SCH ×3 (08:47→20:11)
[2019-11-27] MEDS: Ascorbic Acid 500 MG TABLET PO SCH (08:47)
[2019-11-27] MEDS: Levothyroxine 25 MCG TABLET PO SCH (08:51)
[2019-11-27] MEDS: Insulin LISPRO 300 UNITS/3 ML VIAL SQ SCH ×3 (08:52→17:40)
[2019-11-27] MEDS: Melatonin 3 MG TABLET PO SCH (20:12)
[2019-11-28 04:48] LABS: Basophils # 0.1 K/mcL (0.0-0.2); Basophils % 0.9 %; Eosinophils # 0.3 K/mcL (0.0-0.6); Hematocrit 31.8 % (37.5-50.1); Hemoglobin 9.7 g/dL (12.9-16.9); Immature Granulocytes % 0.3 % (0-4); Lymphocytes # 1.4 K/mcL (0.6-4.6); Lymphocytes % 21.2 %; Mean Corpuscular HGB Conc 30.5 g/dL (31.6-35.5); Mean Corpuscular Volume 95.2 fL (83.0-100.0); Monocytes # 0.7 K/mcL (0.0-1.3); Monocytes % 10.5 %; Neutrophils # 4.2 K/mcL (1.6-8.9); Platelet Count 191 K/mcL (140-400); Red Blood Count 3.34 M/mcL (4.19-5.50); Red Cell Distribution Width 17.1 % (11.5-14.5); Segmented Neutrophils % 62.1 %; White Blood Count 6.8 K/mcL (4.3-11.1)
[2019-11-28 05:01] LABS: Calcium 8.7 mg/dL (8.6-10.3); Potassium 4.1 mEq/L (3.5-5.1)
[2019-11-28] MEDS: Latanoprost 2.5 ML BOTTLE RIGHT EYE SCH (06:17)
[2019-11-28] MEDS: Insulin LISPRO 300 UNITS/3 ML VIAL SQ SCH ×5 (06:18→21:03)
[2019-11-28] MEDS: *HR* Heparin 5,000 UNIT/ML VIAL SQ SCH ×3 (06:53→17:53)
[2019-11-28] MEDS: Levothyroxine 25 MCG TABLET PO SCH (06:53)
[2019-11-28] MEDS: Famotidine 20 MG TABLET PO SCH (06:53)
[2019-11-28] MEDS: Cholecalciferol (D-3) 1,000 UNIT (25MCG) TABLET PO SCH (09:05)
[2019-11-28] MEDS: Brinzolamide 1% 10 ML BOTTLE RIGHT EYE SCH ×3 (09:05→20:34)
[2019-11-28] MEDS: Ascorbic Acid 500 MG TABLET PO SCH (09:05)
[2019-11-28] MEDS: Aspirin 81 MG TAB.CHEW PO SCH (09:05)
[2019-11-28] MEDS ORDERED: Ringers Solution, Lactated 500 ML IVC ONE ×2 (10:31→19:41)
[2019-11-28] MEDS ORDERED: *HR* Heparin 10,000 UNIT/10 ML VIAL IV PRN (10:41)
[2019-11-28] MEDS ORDERED: 0.9 % Sodium Chloride 250 ML IVC PRN (10:41)
[2019-11-28] MEDS: Melatonin 3 MG TABLET PO SCH (20:33)
[2019-11-29 03:03] LABS: Basophils % 0.4 %; Eosinophils # 0.3 K/mcL (0.0-0.6); Eosinophils % 4.8 %; Hematocrit 30.8 % (37.5-50.1); Hemoglobin 9.6 g/dL (12.9-16.9); Immature Granulocytes % 0.2 % (0-4); Lymphocytes # 1.3 K/mcL (0.6-4.6); Lymphocytes % 24.3 %; Mean Corpuscular HGB Conc 31.2 g/dL (31.6-35.5); Mean Corpuscular Hemoglobin 28.8 pg (28.0-33.3); Mean Corpuscular Volume 92.5 fL (83.0-100.0); Monocytes # 0.6 K/mcL (0.0-1.3); Monocytes % 12.2 %; Platelet Count 178 K/mcL (140-400); Red Blood Count 3.33 M/mcL (4.19-5.50); Red Cell Distribution Width 17.2 % (11.5-14.5); Segmented Neutrophils % 58.1 %; White Blood Count 5.2 K/mcL (4.3-11.1)
[2019-11-29 03:22] LABS: Calcium 8.6 mg/dL (8.6-10.3); Potassium 3.9 mEq/L (3.5-5.1)
[2019-11-29] MEDS: Latanoprost 2.5 ML BOTTLE RIGHT EYE SCH ×2 (05:41→23:03)
[2019-11-29] MEDS: Famotidine 20 MG TABLET PO SCH (05:48)
[2019-11-29] MEDS: *HR* Heparin 5,000 UNIT/ML VIAL SQ SCH ×2 (05:48→17:39)
[2019-11-29] MEDS: Levothyroxine 25 MCG TABLET PO SCH (05:49)
[2019-11-29] MEDS: Aspirin 81 MG TAB.CHEW PO SCH (09:47)
[2019-11-29] MEDS: Ascorbic Acid 500 MG TABLET PO SCH (09:47)
[2019-11-29] MEDS: Brinzolamide 1% 10 ML BOTTLE RIGHT EYE SCH ×3 (09:47→23:04)
[2019-11-29] MEDS: Cholecalciferol (D-3) 1,000 UNIT (25MCG) TABLET PO SCH (09:47)
[2019-11-29] MEDS: Insulin LISPRO 300 UNITS/3 ML VIAL SQ SCH ×4 (09:48→23:00)
[2019-11-29] MEDS: Melatonin 3 MG TABLET PO SCH (23:03)
[2019-11-30] MEDS: *HR* Heparin 5,000 UNIT/ML VIAL SQ SCH ×2 (06:04→17:16)
[2019-11-30] MEDS: Famotidine 20 MG TABLET PO SCH (06:08)
[2019-11-30] MEDS: Levothyroxine 25 MCG TABLET PO SCH (06:09)
[2019-11-30] MEDS: Aspirin 81 MG TAB.CHEW PO SCH (07:52)
[2019-11-30] MEDS ORDERED: *HR* Heparin 10,000 UNIT/10 ML VIAL IV PRN (07:52)
[2019-11-30] MEDS ORDERED: 0.9 % Sodium Chloride 250 ML IVC PRN (07:52)
[2019-11-30] MEDS: Ascorbic Acid 500 MG TABLET PO SCH (07:52)
[2019-11-30] MEDS: Insulin LISPRO 300 UNITS/3 ML VIAL SQ SCH ×4 (07:53→20:02)
[2019-11-30] MEDS: Brinzolamide 1% 10 ML BOTTLE RIGHT EYE SCH ×3 (07:53→20:01)
[2019-11-30] MEDS: Cholecalciferol (D-3) 1,000 UNIT (25MCG) TABLET PO SCH (07:53)
[2019-11-30] MEDS ORDERED: 0.9 % Sodium Chloride 1,000 ML PRIME SCH (08:00)
[2019-11-30] MEDS ORDERED: *HR* Metoprolol 5 MG/5 ML VIAL IVP ONE (08:14)
[2019-11-30 09:02] LABS: Basophils % 0.5 %; Eosinophils # 0.2 K/mcL (0.0-0.6); Eosinophils % 2.9 %; Hematocrit 31.8 % (37.5-50.1); Hemoglobin 9.9 g/dL (12.9-16.9); Immature Granulocytes % 0.3 % (0-4); Lymphocytes # 1.3 K/mcL (0.6-4.6); Lymphocytes % 20.1 %; Mean Corpuscular HGB Conc 31.1 g/dL (31.6-35.5); Mean Corpuscular Hemoglobin 29.6 pg (28.0-33.3); Mean Corpuscular Volume 94.9 fL (83.0-100.0); Mean Platelet Volume 9.2 fL (9.4-12.4); Monocytes # 0.8 K/mcL (0.0-1.3); Neutrophils # 4.3 K/mcL (1.6-8.9); Platelet Count 186 K/mcL (140-400); Red Blood Count 3.35 M/mcL (4.19-5.50); Red Cell Distribution Width 16.7 % (11.5-14.5); Segmented Neutrophils % 64.2 %; White Blood Count 6.6 K/mcL (4.3-11.1)
[2019-11-30 09:22] LABS: Calcium 9.2 mg/dL (8.6-10.3); Potassium 4.4 mEq/L (3.5-5.1)
[2019-11-30] MEDS: Melatonin 3 MG TABLET PO SCH (20:01)
[2019-11-30] MEDS: Latanoprost 2.5 ML BOTTLE RIGHT EYE SCH (20:01)
[2019-12-01] MEDS: *HR* Heparin 5,000 UNIT/ML VIAL SQ SCH ×2 (05:18→18:11)
[2019-12-01] MEDS: Famotidine 20 MG TABLET PO SCH (05:18)
[2019-12-01] MEDS: Levothyroxine 25 MCG TABLET PO SCH (05:18)
[2019-12-01] MEDS: Ascorbic Acid 500 MG TABLET PO SCH (09:12)
[2019-12-01] MEDS: Aspirin 81 MG TAB.CHEW PO SCH (09:12)
[2019-12-01] MEDS: Cholecalciferol (D-3) 1,000 UNIT (25MCG) TABLET PO SCH (09:12)
[2019-12-01] MEDS: Insulin LISPRO 300 UNITS/3 ML VIAL SQ SCH ×4 (10:05→23:13)
[2019-12-01] MEDS: Brinzolamide 1% 10 ML BOTTLE RIGHT EYE SCH ×3 (10:06→23:11)
[2019-12-01] MEDS: Latanoprost 2.5 ML BOTTLE RIGHT EYE SCH (23:11)
[2019-12-01] MEDS: Melatonin 3 MG TABLET PO SCH (23:12)
[2019-12-02] MEDS: Famotidine 20 MG TABLET PO SCH (06:40)
[2019-12-02] MEDS: *HR* Heparin 5,000 UNIT/ML VIAL SQ SCH ×2 (06:41→16:56)
[2019-12-02] MEDS: Levothyroxine 25 MCG TABLET PO SCH (06:41)
[2019-12-02] MEDS: Insulin LISPRO 300 UNITS/3 ML VIAL SQ SCH ×4 (09:40→22:00)
[2019-12-02] MEDS: Ascorbic Acid 500 MG TABLET PO SCH (09:46)
[2019-12-02] MEDS: Brinzolamide 1% 10 ML BOTTLE RIGHT EYE SCH ×3 (09:46→20:35)
[2019-12-02] MEDS: Aspirin 81 MG TAB.CHEW PO SCH (09:46)
[2019-12-02] MEDS: Cholecalciferol (D-3) 1,000 UNIT (25MCG) TABLET PO SCH (09:46)
[2019-12-02] MEDS: Melatonin 3 MG TABLET PO SCH (20:34)
[2019-12-02] MEDS: Latanoprost 2.5 ML BOTTLE RIGHT EYE SCH (20:35)
[2019-12-03] MEDS: Famotidine 20 MG TABLET PO SCH (05:26)
[2019-12-03] MEDS: *HR* Heparin 5,000 UNIT/ML VIAL SQ SCH ×2 (05:26→17:22)
[2019-12-03] MEDS: Levothyroxine 25 MCG TABLET PO SCH (05:26)
[2019-12-03 06:40] LABS: Basophils % 0.7 %; Eosinophils # 0.3 K/mcL (0.0-0.6); Eosinophils % 5.6 %; Hematocrit 31.2 % (37.5-50.1); Hemoglobin 9.6 g/dL (12.9-16.9); Immature Granulocytes % 0.5 % (0-4); Lymphocytes # 1.3 K/mcL (0.6-4.6); Lymphocytes % 22.4 %; Mean Corpuscular HGB Conc 30.8 g/dL (31.6-35.5); Mean Corpuscular Hemoglobin 28.8 pg (28.0-33.3); Mean Corpuscular Volume 93.7 fL (83.0-100.0); Mean Platelet Volume 9.5 fL (9.4-12.4); Monocytes # 0.6 K/mcL (0.0-1.3); Neutrophils # 3.6 K/mcL (1.6-8.9); Platelet Count 242 K/mcL (140-400); Red Blood Count 3.33 M/mcL (4.19-5.50); Red Cell Distribution Width 15.7 % (11.5-14.5); Segmented Neutrophils % 60.8 %; White Blood Count 5.9 K/mcL (4.3-11.1)
[2019-12-03 07:05] LABS: Calcium 9.3 mg/dL (8.6-10.3); Potassium 5.5 mEq/L (3.5-5.1)
[2019-12-03] MEDS: Insulin LISPRO 300 UNITS/3 ML VIAL SQ SCH ×4 (07:33→21:13)
[2019-12-03] MEDS ORDERED: 0.9 % Sodium Chloride 250 ML IVC PRN (07:49)
[2019-12-03] MEDS: Ascorbic Acid 500 MG TABLET PO SCH (10:58)
[2019-12-03] MEDS: Cholecalciferol (D-3) 1,000 UNIT (25MCG) TABLET PO SCH (10:58)
[2019-12-03] MEDS: Brinzolamide 1% 10 ML BOTTLE RIGHT EYE SCH ×3 (10:58→20:03)
[2019-12-03] MEDS: Aspirin 81 MG TAB.CHEW PO SCH (10:58)
[2019-12-03] MEDS ORDERED: Acetaminophen 325 MG TABLET PO PRN (11:09)
[2019-12-03] MEDS ORDERED: *HR* Heparin 10,000 UNIT/10 ML VIAL IV PRN (11:10)
[2019-12-03] MEDS: Melatonin 3 MG TABLET PO SCH (20:00)
[2019-12-03] MEDS: Latanoprost 2.5 ML BOTTLE RIGHT EYE SCH (20:03)
[2019-12-04 04:37] LABS: Basophils % 0.5 %; Eosinophils # 0.2 K/mcL (0.0-0.6); Eosinophils % 2.9 %; Hematocrit 31.1 % (37.5-50.1); Hemoglobin 9.5 g/dL (12.9-16.9); Immature Granulocytes % 0.3 % (0-4); Lymphocytes # 1.6 K/mcL (0.6-4.6); Lymphocytes % 24.7 %; Mean Corpuscular HGB Conc 30.5 g/dL (31.6-35.5); Mean Corpuscular Hemoglobin 28.6 pg (28.0-33.3); Mean Corpuscular Volume 93.7 fL (83.0-100.0); Mean Platelet Volume 9.5 fL (9.4-12.4); Monocytes # 0.8 K/mcL (0.0-1.3); Monocytes % 12.6 %; Neutrophils # 3.7 K/mcL (1.6-8.9); Platelet Count 247 K/mcL (140-400); Red Blood Count 3.32 M/mcL (4.19-5.50); Red Cell Distribution Width 15.9 % (11.5-14.5); White Blood Count 6.3 K/mcL (4.3-11.1)
[2019-12-04 04:45] LABS: Calcium 9.3 mg/dL (8.6-10.3); Potassium 4.3 mEq/L (3.5-5.1)
[2019-12-04] MEDS: Famotidine 20 MG TABLET PO SCH (06:39)
[2019-12-04] MEDS: Levothyroxine 25 MCG TABLET PO SCH (06:39)
[2019-12-04] MEDS: *HR* Heparin 5,000 UNIT/ML VIAL SQ SCH ×2 (06:39→18:20)
[2019-12-04] MEDS: Insulin LISPRO 300 UNITS/3 ML VIAL SQ SCH ×4 (10:31→20:25)
[2019-12-04] MEDS: Cholecalciferol (D-3) 1,000 UNIT (25MCG) TABLET PO SCH (10:35)
[2019-12-04] MEDS: Aspirin 81 MG TAB.CHEW PO SCH (10:35)
[2019-12-04] MEDS: Ascorbic Acid 500 MG TABLET PO SCH (10:35)
[2019-12-04] MEDS: Brinzolamide 1% 10 ML BOTTLE RIGHT EYE SCH ×3 (10:36→20:24)
[2019-12-04] MEDS: Haloperidol Lactate 5 MG/ML VIAL IVP PRN ×2 (18:47→22:22)
[2019-12-04] MEDS: Melatonin 3 MG TABLET PO SCH (20:24)
[2019-12-04] MEDS: Latanoprost 2.5 ML BOTTLE RIGHT EYE SCH (20:24)
[2019-12-04] MEDS ORDERED: Haloperidol Lactate 5 MG/ML VIAL IM ONE (23:33)
[2019-12-05 05:45] LABS: Basophils % 0.8 %; Eosinophils # 0.1 K/mcL (0.0-0.6); Eosinophils % 2.5 %; Hematocrit 31.9 % (37.5-50.1); Hemoglobin 10.1 g/dL (12.9-16.9); Immature Granulocytes % 0.4 % (0-4); Lymphocytes # 1.2 K/mcL (0.6-4.6); Lymphocytes % 24.8 %; Mean Corpuscular HGB Conc 31.7 g/dL (31.6-35.5); Mean Corpuscular Hemoglobin 28.5 pg (28.0-33.3); Mean Corpuscular Volume 89.9 fL (83.0-100.0); Monocytes # 0.6 K/mcL (0.0-1.3); Monocytes % 11.9 %; Neutrophils # 2.9 K/mcL (1.6-8.9); Platelet Count 226 K/mcL (140-400); Red Blood Count 3.55 M/mcL (4.19-5.50); Red Cell Distribution Width 15.5 % (11.5-14.5); Segmented Neutrophils % 59.6 %; White Blood Count 4.8 K/mcL (4.3-11.1)
[2019-12-05] MEDS: Levothyroxine 25 MCG TABLET PO SCH (05:48)
[2019-12-05] MEDS: Famotidine 20 MG TABLET PO SCH (05:48)
[2019-12-05] MEDS: *HR* Heparin 5,000 UNIT/ML VIAL SQ SCH (05:49)
[2019-12-05 06:01] LABS: Calcium 9.5 mg/dL (8.6-10.3); Potassium 3.9 mEq/L (3.5-5.1)
[2019-12-05] MEDS ORDERED: 0.9 % Sodium Chloride 250 ML IVC PRN (07:17)
[2019-12-05] MEDS: Insulin LISPRO 300 UNITS/3 ML VIAL SQ SCH ×4 (10:38→20:12)
[2019-12-05] MEDS: Brinzolamide 1% 10 ML BOTTLE RIGHT EYE SCH ×3 (12:24→20:11)
[2019-12-05] MEDS: Ascorbic Acid 500 MG TABLET PO SCH (12:24)
[2019-12-05] MEDS: Cholecalciferol (D-3) 1,000 UNIT (25MCG) TABLET PO SCH (12:24)
[2019-12-05] MEDS: Aspirin 81 MG TAB.CHEW PO SCH (12:24)
[2019-12-05] MEDS ORDERED: *HR* FentaNYL (PF) 100 MCG/2 ML VIAL ONE (15:19)
[2019-12-05] MEDS ORDERED: *HR* Midazolam HCl 5 MG/5 ML VIAL IVP ONE ×2 (15:19→15:25)
[2019-12-05] MEDS ORDERED: *HR* FentaNYL (PF) 100 MCG/2 ML VIAL IVP ONE (15:25)
[2019-12-05] MEDS: Melatonin 3 MG TABLET PO SCH (20:11)
[2019-12-05] MEDS: Latanoprost 2.5 ML BOTTLE RIGHT EYE SCH (20:11)
[2019-12-05] MEDS: Apixaban 2.5 MG TABLET PO SCH (20:12)
[2019-12-06 01:08] LABS: Basophils % 0.5 %; Eosinophils # 0.1 K/mcL (0.0-0.6); Eosinophils % 1.6 %; Hematocrit 32.7 % (37.5-50.1); Hemoglobin 10.3 g/dL (12.9-16.9); Immature Granulocytes % 0.2 % (0-4); Lymphocytes # 0.8 K/mcL (0.6-4.6); Lymphocytes % 13.4 %; Mean Corpuscular HGB Conc 31.5 g/dL (31.6-35.5); Mean Corpuscular Hemoglobin 28.9 pg (28.0-33.3); Mean Corpuscular Volume 91.9 fL (83.0-100.0); Mean Platelet Volume 8.9 fL (9.4-12.4); Monocytes # 0.7 K/mcL (0.0-1.3); Monocytes % 11.6 %; Neutrophils # 4.6 K/mcL (1.6-8.9); Platelet Count 231 K/mcL (140-400); Red Blood Count 3.56 M/mcL (4.19-5.50); Red Cell Distribution Width 15.4 % (11.5-14.5); Segmented Neutrophils % 72.7 %; White Blood Count 6.3 K/mcL (4.3-11.1)
[2019-12-06 01:36] LABS: Calcium 9.2 mg/dL (8.6-10.3); Potassium 3.5 mEq/L (3.5-5.1)
[2019-12-06] MEDS: Famotidine 20 MG TABLET PO SCH (05:47)
[2019-12-06] MEDS: Levothyroxine 25 MCG TABLET PO SCH (05:47)
[2019-12-06] MEDS: Insulin LISPRO 300 UNITS/3 ML VIAL SQ SCH ×3 (08:37→16:31)
[2019-12-06] MEDS: Ascorbic Acid 500 MG TABLET PO SCH (08:42)
[2019-12-06] MEDS: Cholecalciferol (D-3) 1,000 UNIT (25MCG) TABLET PO SCH (08:42)
[2019-12-06] MEDS: Apixaban 2.5 MG TABLET PO SCH (08:43)
[2019-12-06] MEDS: Brinzolamide 1% 10 ML BOTTLE RIGHT EYE SCH ×2 (08:43→16:31)
[2019-12-06 16:16] VITALS: BP 127/71
== END 2019-12-06 18:48 | DRG 56 ==
LOC: 3NENU 12:20 → EMEROOARM 12:20 → SUATTDRO 20:53 → 3NENU 22:50 → SUATTDRO 11-26 16:11 → 2ANU 11-26 16:19
PROVIDERS: ADMIT Internal Medicine; ATTEND Internal Medicine
PROC: ENDOEBX (2019-12-05 14:05)

== ENCOUNTER 2021-06-01 15:41 | Inpatient (IN) ==
[2021-06-01 19:51] LABS: Albumin 3.6 g/dL (3.5-5.7); Albumin/Globulin Ratio 1.5 (1.1-2.2); Bilirubin,Total 0.3 mg/dL (0.3-1.0); Calcium 9.1 mg/dL (8.6-10.3); Globulin 2.4 g/dL (2.4-3.5); Potassium 4.4 mEq/L (3.5-5.1)
[2021-06-01 20:09] LABS: Troponin I 5.52 ng/mL (< 0.04)
[2021-06-01 20:23] LABS: Bilirubin,Urine Negative (Negative); Blood,Urine Negative (Negative); Clarity,Urine Clear (Clear); Color,Urine Light-Yellow (Yellow); Glucose,Urine (UA) 500 mg/dL (Normal); Ketones,Urine Negative (Negative); Leukocyte Esterase,Urine Negative (Negative); Mucus,Urine Few per lpf (None-Few); Nitrite,Urine Negative (Negative); PH,Urine 7.5 pH Units (5.0-8.0); Protein,Urine >=600 mg/dL (Neg-Trace); RBC,Urine 0-3 per hpf (0-3); Specific Gravity,Urine 1.012 (1.010-1.025); Squamous Epithelial Cell,Urine Few per hpf (None-Few); Urobilinogen,Urine Normal (Normal)
[2021-06-01] MEDS: Aspirin 81 MG TAB.CHEW PO SCH (20:35)
[2021-06-01] MEDS ORDERED: levoFLOXacin 750 MG/150 ML 750 MG/150 ML BAG IVPB ONE ×2 (21:23→22:12)
[2021-06-01] MEDS ORDERED: Cefepime HCl 2,000 MG in 0.9 % Sodium Chloride Mini Bag 100 ML IVPB ONE (22:15)
[2021-06-01] MEDS ORDERED: Isovue-370 500 ML BOTTLE IVP ONE (22:54)
[2021-06-01 23:04] LABS: Basophils % 0.3 %; Eosinophils # 0.1 K/mcL (0.0-0.6); Eosinophils % 0.6 %; Hematocrit 24.2 % (37.5-50.1); Hemoglobin 7.5 g/dL (12.9-16.9); Immature Granulocytes % 0.6 % (0-4); Lymphocytes # 0.7 K/mcL (0.6-4.6); Lymphocytes % 8.2 %; Mean Corpuscular Hemoglobin 31.1 pg (28.0-33.3); Mean Corpuscular Volume 100.4 fL (83.0-100.0); Mean Platelet Volume 9.9 fL (9.4-12.4); Monocytes # 0.8 K/mcL (0.0-1.3); Monocytes % 9.9 %; Neutrophils # 6.3 K/mcL (1.6-8.9); Platelet Count 186 K/mcL (140-400); Red Blood Count 2.41 M/mcL (4.19-5.50); Red Cell Distribution Width 15.9 % (11.5-14.5); Segmented Neutrophils % 80.4 %; White Blood Count 7.9 K/mcL (4.3-11.1)
[2021-06-02] MEDS ORDERED: Naloxone 0.4 MG/ML INJ IVP PRN (02:18)
[2021-06-02] MEDS ORDERED: Ondansetron 4 MG/2 ML VIAL IVP PRN (02:18)
[2021-06-02] MEDS ORDERED: Dextrose Gel 15 GM/37.5 ML TUBE PO PRN ×2 (02:24)
[2021-06-02] MEDS ORDERED: *HR* Dextrose 50 % in Water (Vial) 50 ML VIAL IVP PRN (02:24)
[2021-06-02] MEDS ORDERED: D5% in Water 1,000 ML IVC PRN (02:24)
[2021-06-02] MEDS ORDERED: Perflutren Lipid Microsphere 1.3 ML in 0.9 % Sodium Chloride 8.7 ML IVP PRN (03:01)
[2021-06-02 03:43] LABS: Basophils % 0.2 %; Hemoglobin 7.9 g/dL (12.9-16.9); Immature Granulocytes % 0.6 % (0-4); Mean Platelet Volume 10.1 fL (9.4-12.4)
[2021-06-02 03:45] LABS: Eosinophils % 0.5 %; Hematocrit 26.1 % (37.5-50.1); Immature Platelets 2.2 % (1.1-6.1); Lymphocytes # 0.6 K/mcL (0.6-4.6); Mean Corpuscular HGB Conc 30.3 g/dL (31.6-35.5); Mean Corpuscular Hemoglobin 30.7 pg (28.0-33.3); Mean Corpuscular Volume 101.6 fL (83.0-100.0); Monocytes # 0.8 K/mcL (0.0-1.3); Monocytes % 9.8 %; Neutrophils # 6.7 K/mcL (1.6-8.9); Platelet Count 205 K/mcL (140-400); Red Blood Count 2.57 M/mcL (4.19-5.50); Segmented Neutrophils % 81.9 %; White Blood Count 8.2 K/mcL (4.3-11.1)
[2021-06-02 03:51] LABS: INR 1.1
[2021-06-02 04:08] LABS: Albumin 3.5 g/dL (3.5-5.7); Albumin/Globulin Ratio 1.3 (1.1-2.2); Bilirubin,Total 0.3 mg/dL (0.3-1.0); Calcium 9.1 mg/dL (8.6-10.3); Globulin 2.6 g/dL (2.4-3.5); Magnesium 1.9 mg/dL (1.6-2.6); Potassium 4.1 mEq/L (3.5-5.1); Total Protein 6.1 g/dL (6.4-8.9)
[2021-06-02 04:27] LABS: Thyroid Stimulating Hormone 2.589 mcIU/mL (0.340-5.600); Troponin I 2.86 ng/mL (< 0.04)
[2021-06-02] MEDS ORDERED: ALPRAZolam 0.5 MG TABLET PO ONE (04:56)
[2021-06-02] MEDS: Insulin LISPRO 300 UNITS/3 ML VIAL SUBQ SCH ×5 (05:04→20:30)
[2021-06-02] MEDS ORDERED: *HR* Heparin 5,000 UNIT/ML VIAL IVP PRN ×2 (05:11)
[2021-06-02] MEDS ORDERED: Heparin 25,000UNIT/250ML 1/2NS 25,000 UNIT/250 ML IV.SOLN IVC SCH (05:15)
[2021-06-02] MEDS: Aspirin 81 MG TAB.CHEW PO SCH (08:32)
[2021-06-02] MEDS: Heparin 25,000UNIT/250ML 1/2NS 25,000 UNIT/250 ML IV.SOLN IVC SCH (14:55)
[2021-06-02] MEDS ORDERED: Loratadine 10 MG TABLET PO PRN (15:14)
[2021-06-02 15:46] LABS: Hepatitis B Surface Antibody < 3.10 mIU/mL
[2021-06-02 15:56] LABS: Hepatitis B Surface Antigen Nonreactive (Nonreactive)
[2021-06-02 19:31] LABS: Hematocrit 25.9 % (37.5-50.1)
[2021-06-02] MEDS: QUEtiapine Fumarate 100 MG TABLET PO SCH (20:31)
[2021-06-02] MEDS: traZODone 50 MG TABLET PO SCH (20:31)
[2021-06-02] MEDS: Latanoprost 2.5 ML BOTTLE RIGHT EYE SCH (20:40)
[2021-06-02] MEDS ORDERED: Cefepime HCl 2,000 MG in 0.9 % Sodium Chloride Mini Bag 100 ML IVPB ONE (21:23)
[2021-06-03 03:24] LABS: Basophils % 0.4 %; Eosinophils # 0.1 K/mcL (0.0-0.6); Eosinophils % 1.7 %; Hematocrit 25.1 % (37.5-50.1); Hemoglobin 7.6 g/dL (12.9-16.9); Immature Granulocytes % 0.9 % (0-4); Lymphocytes # 0.8 K/mcL (0.6-4.6); Lymphocytes % 10.8 %; Mean Corpuscular HGB Conc 30.3 g/dL (31.6-35.5); Mean Corpuscular Hemoglobin 30.5 pg (28.0-33.3); Mean Corpuscular Volume 100.8 fL (83.0-100.0); Mean Platelet Volume 10.2 fL (9.4-12.4); Monocytes # 0.9 K/mcL (0.0-1.3); Monocytes % 11.6 %; Neutrophils # 5.7 K/mcL (1.6-8.9); Platelet Count 209 K/mcL (140-400); Red Blood Count 2.49 M/mcL (4.19-5.50); Red Cell Distribution Width 15.6 % (11.5-14.5); Segmented Neutrophils % 74.6 %; White Blood Count 7.6 K/mcL (4.3-11.1)
[2021-06-03 03:44] LABS: Calcium 9.6 mg/dL (8.6-10.3); Potassium 3.9 mEq/L (3.5-5.1)
[2021-06-03] MEDS ORDERED: 0.9 % Sodium Chloride 250 ML IVC PRN (07:53)
[2021-06-03] MEDS ORDERED: *HR* Heparin 10,000 UNIT/10 ML VIAL IV PRN ×2 (07:53)
[2021-06-03] MEDS ORDERED: 0.9 % Sodium Chloride 1,000 ML PRIME SCH (08:00)
[2021-06-03] MEDS: Aspirin 81 MG TAB.CHEW PO SCH (08:21)
[2021-06-03] MEDS: QUEtiapine Fumarate 25 MG TABLET PO SCH (08:21)
[2021-06-03] MEDS: Levothyroxine 25 MCG TABLET PO SCH (08:23)
[2021-06-03] MEDS: Ascorbic Acid 500 MG TABLET PO SCH (08:23)
[2021-06-03] MEDS: Insulin LISPRO 300 UNITS/3 ML VIAL SUBQ SCH ×4 (08:24→22:42)
[2021-06-03] MEDS ORDERED: Heparin 1,000 UNITS/500 mL 500 ML ONE (13:49)
[2021-06-03] MEDS ORDERED: *HR* Heparin 5,000 UNIT/ML VIAL ONE (14:09)
[2021-06-03] MEDS ORDERED: SODIUM CHLORIDE/NAHCO3/KCL/PEG 4,000 ML SOLN.RECON PO ONE (17:00)
[2021-06-03] MEDS: traZODone 50 MG TABLET PO SCH (19:06)
[2021-06-03] MEDS: Metoprolol XL (24 HR) Succ 25 MG TAB.ER.24H PO SCH (22:53)
[2021-06-03] MEDS: QUEtiapine Fumarate 100 MG TABLET PO SCH (22:53)
[2021-06-03] MEDS: Latanoprost 2.5 ML BOTTLE RIGHT EYE SCH (23:13)
[2021-06-04 00:27] LABS: Basophils # 0.1 K/mcL (0.0-0.2); Basophils % 0.5 %; Eosinophils # 0.2 K/mcL (0.0-0.6); Eosinophils % 2.1 %; Hemoglobin 7.8 g/dL (12.9-16.9); Immature Granulocytes % 0.6 % (0-4); Lymphocytes # 0.8 K/mcL (0.6-4.6); Lymphocytes % 7.4 %; Mean Corpuscular Hemoglobin 30.2 pg (28.0-33.3); Mean Corpuscular Volume 100.8 fL (83.0-100.0); Mean Platelet Volume 10.1 fL (9.4-12.4); Monocytes # 1.1 K/mcL (0.0-1.3); Monocytes % 10.4 %; Neutrophils # 8.6 K/mcL (1.6-8.9); Platelet Count 221 K/mcL (140-400); Red Blood Count 2.58 M/mcL (4.19-5.50); Red Cell Distribution Width 15.9 % (11.5-14.5); White Blood Count 10.9 K/mcL (4.3-11.1)
[2021-06-04 07:23] LABS: Basophils # 0.1 K/mcL (0.0-0.2); Basophils % 0.5 %; Eosinophils # 0.3 K/mcL (0.0-0.6); Eosinophils % 2.7 %; Hematocrit 26.6 % (37.5-50.1); Immature Granulocytes % 0.8 % (0-4); Lymphocytes # 0.9 K/mcL (0.6-4.6); Lymphocytes % 8.3 %; Mean Corpuscular HGB Conc 30.1 g/dL (31.6-35.5); Mean Corpuscular Hemoglobin 30.2 pg (28.0-33.3); Mean Corpuscular Volume 100.4 fL (83.0-100.0); Mean Platelet Volume 10.6 fL (9.4-12.4); Monocytes % 8.7 %; Neutrophils # 8.8 K/mcL (1.6-8.9); Platelet Count 252 K/mcL (140-400); Red Blood Count 2.65 M/mcL (4.19-5.50); Red Cell Distribution Width 15.9 % (11.5-14.5); White Blood Count 11.1 K/mcL (4.3-11.1)
[2021-06-04 07:41] LABS: Calcium 9.4 mg/dL (8.6-10.3); Potassium 3.9 mEq/L (3.5-5.1)
[2021-06-04] MEDS: Aspirin 81 MG TAB.CHEW PO SCH (08:20)
[2021-06-04] MEDS: QUEtiapine Fumarate 25 MG TABLET PO SCH (08:20)
[2021-06-04] MEDS: Metoprolol XL (24 HR) Succ 25 MG TAB.ER.24H PO SCH ×2 (08:21→21:23)
[2021-06-04] MEDS: Ascorbic Acid 500 MG TABLET PO SCH (08:21)
[2021-06-04] MEDS: Levothyroxine 25 MCG TABLET PO SCH (08:21)
[2021-06-04] MEDS: Insulin LISPRO 300 UNITS/3 ML VIAL SUBQ SCH ×4 (08:39→21:22)
[2021-06-04] MEDS ORDERED: Metoprolol XL (24 HR) Succ 25 MG TAB.ER.24H PO ONE (09:15)
[2021-06-04] MEDS: Heparin 25,000UNIT/250ML 1/2NS 25,000 UNIT/250 ML IV.SOLN IVC SCH (09:31)
[2021-06-04] MEDS: Isosorbide MONOnitrate (24 HR) 30 MG TAB.ER.24H PO SCH (09:43)
[2021-06-04] MEDS ORDERED: *HR* Norepinephrine 4 MG/4 ML VIAL IVC ONE (14:17)
[2021-06-04] MEDS: Pantoprazole 40 MG VIAL IVP SCH (14:32)
[2021-06-04] MEDS: traZODone 50 MG TABLET PO SCH (18:17)
[2021-06-04] MEDS: Latanoprost 2.5 ML BOTTLE RIGHT EYE SCH (18:24)
[2021-06-04] MEDS ORDERED: *HR* Etomidate 20 MG/10 ML AMPUL IVP ONE (20:26)
[2021-06-04] MEDS ORDERED: Lidocaine -MPF 2% 5 ML VIAL SQ ONE (20:26)
[2021-06-04] MEDS ORDERED: *HR* Propofol 200 MG/20 ML VIAL IVP ONE (20:26)
[2021-06-04] MEDS: QUEtiapine Fumarate 100 MG TABLET PO SCH (21:23)
[2021-06-05] MEDS: Acetaminophen 325 MG TABLET PO PRN ×2 (03:26→08:05)
[2021-06-05 04:32] LABS: Basophils % 0.5 %; Calcium 9.2 mg/dL (8.6-10.3); Eosinophils # 0.4 K/mcL (0.0-0.6); Eosinophils % 4.9 %; Hematocrit 24.6 % (37.5-50.1); Hemoglobin 7.3 g/dL (12.9-16.9); Immature Granulocytes % 0.6 % (0-4); Lymphocytes # 0.9 K/mcL (0.6-4.6); Lymphocytes % 10.8 %; Mean Corpuscular HGB Conc 29.7 g/dL (31.6-35.5); Mean Corpuscular Hemoglobin 30.3 pg (28.0-33.3); Mean Corpuscular Volume 102.1 fL (83.0-100.0); Mean Platelet Volume 10.4 fL (9.4-12.4); Monocytes % 11.8 %; Neutrophils # 6.1 K/mcL (1.6-8.9); Platelet Count 254 K/mcL (140-400); Potassium 3.9 mEq/L (3.5-5.1); Red Blood Count 2.41 M/mcL (4.19-5.50); Red Cell Distribution Width 15.9 % (11.5-14.5); Segmented Neutrophils % 71.4 %; White Blood Count 8.5 K/mcL (4.3-11.1)
[2021-06-05] MEDS ORDERED: 0.9 % Sodium Chloride 250 ML IVC PRN (07:35)
[2021-06-05] MEDS ORDERED: *HR* Heparin 10,000 UNIT/10 ML VIAL IV PRN (07:35)
[2021-06-05] MEDS ORDERED: 0.9 % Sodium Chloride 1,000 ML PRIME SCH (07:45)
[2021-06-05] MEDS: Pantoprazole 40 MG VIAL IVP SCH (08:05)
[2021-06-05] MEDS: Aspirin 81 MG TAB.CHEW PO SCH (08:05)
[2021-06-05] MEDS: QUEtiapine Fumarate 25 MG TABLET PO SCH (08:05)
[2021-06-05] MEDS: Levothyroxine 25 MCG TABLET PO SCH (08:06)
[2021-06-05] MEDS: Insulin LISPRO 300 UNITS/3 ML VIAL SUBQ SCH ×3 (08:07→16:51)
[2021-06-05] MEDS: Ascorbic Acid 500 MG TABLET PO SCH (08:09)
[2021-06-05] MEDS: Metoprolol XL (24 HR) Succ 25 MG TAB.ER.24H PO SCH ×2 (08:10→19:42)
[2021-06-05] MEDS: Isosorbide MONOnitrate (24 HR) 30 MG TAB.ER.24H PO SCH (08:10)
[2021-06-05] MEDS ORDERED: Fluticasone Propionate Nasal 50 MCG/SPRAY BOTTLE NS SCH (15:36)
[2021-06-05] MEDS: Latanoprost 2.5 ML BOTTLE RIGHT EYE SCH (18:46)
[2021-06-05] MEDS: traZODone 50 MG TABLET PO SCH (18:46)
[2021-06-05] MEDS: QUEtiapine Fumarate 100 MG TABLET PO SCH (19:41)
[2021-06-05 19:57] VITALS: BP 107/92
== END 2021-06-05 20:27 | disposition short-term general hospital (02) | DRG 280 ==
LOC: 2NENU 15:41 → EMEROOARM 15:41 → SUATTDRO 06-02 01:45 → 2NENU 06-02 02:52 → SUATTDRO 06-02 13:07
PROVIDERS: ADMIT Internal Medicine; ATTEND Internal Medicine
PROC: ENDOCBX (2021-06-04 13:40)

== ENCOUNTER 2021-07-16 11:31 | Inpatient (IN) ==
[2021-07-16 13:53] LABS: Basophils # 0.1 K/mcL (0.0-0.2); Basophils % 0.5 %; Eosinophils % 0.3 %; Hematocrit 34.5 % (37.5-50.1); Hemoglobin 10.2 g/dL (12.9-16.9); Immature Granulocytes % 1.1 % (0-4); Lymphocytes # 0.5 K/mcL (0.6-4.6); Lymphocytes % 4.7 %; Mean Corpuscular HGB Conc 29.6 g/dL (31.6-35.5); Mean Corpuscular Hemoglobin 29.1 pg (28.0-33.3); Mean Corpuscular Volume 98.6 fL (83.0-100.0); Mean Platelet Volume 10.4 fL (9.4-12.4); Monocytes # 0.8 K/mcL (0.0-1.3); Monocytes % 7.7 %; Neutrophils # 9.2 K/mcL (1.6-8.9); Platelet Count 243 K/mcL (140-400); Red Cell Distribution Width 17.1 % (11.5-14.5); Segmented Neutrophils % 85.7 %; White Blood Count 10.7 K/mcL (4.3-11.1)
[2021-07-16] MEDS ORDERED: Piperacillin/Tazobactam 3.375 GM in 0.9 % Sodium Chloride Mini Bag 100 ML IVPB ONE (14:00)
[2021-07-16 14:06] LABS: Calcium 9.8 mg/dL (8.6-10.3); Potassium 4.3 mEq/L (3.5-5.1)
[2021-07-16 14:19] LABS: Troponin I 0.11 ng/mL (< 0.04)
[2021-07-16 15:19] LABS: Adenovirus Not Detected (Not Detect); Bordetella Pertussis Not Detected (Not Detect); Chlamydophila pneumoniae Not Detected (Not Detect); Coronavirus 229E Not Detected (Not Detect); Coronavirus HKU1 Not Detected (Not Detect); Coronavirus NL63 Not Detected (Not Detect); Coronavirus OC43 Not Detected (Not Detect); Human Metapneumovirus Not Detected (Not Detect); Human Rhinovirus/Enterovirus Not Detected (Not Detect); Influenza A Subtype 2009 H1 Not Detected (Not Detect); Influenza B Not Detected (Not Detect); Mycoplasma pneumoniae Not Detected (Not Detect); Parainfluenza Virus 1 Not Detected (Not Detect); Parainfluenza Virus 2 Not Detected (Not Detect); Parainfluenza Virus 3 Not Detected (Not Detect); Parainfluenza Virus 4 Not Detected (Not Detect); Respiratory Syncytial Virus Not Detected (Not Detect); SARS-CoV-2 Not Detected (Not Detect)
[2021-07-16] MEDS ORDERED: Melatonin 3 MG TABLET PO PRN (16:12)
[2021-07-16] MEDS ORDERED: Naloxone 0.4 MG/ML INJ IVP PRN (16:12)
[2021-07-16] MEDS ORDERED: Azithromycin 500 MG in 0.9 % Sodium Chloride 250 ML IVPB ONE (16:33)
[2021-07-16] MEDS ORDERED: Bacitracin/PolymyxinB OINT 14.17 GM TUBE TP STA (16:35)
[2021-07-16] MEDS ORDERED: Mag Hydrox/Al Hydrox/Simeth 30 ML UDC PO STA ×2 (16:36→16:51)
[2021-07-16] MEDS ORDERED: 0.9 % Sodium Chloride 250 ML ONE (18:14)
[2021-07-16] MEDS: QUEtiapine Fumarate 100 MG TABLET PO SCH (20:05)
[2021-07-16] MEDS: traZODone 50 MG TABLET PO SCH (20:05)
[2021-07-16] MEDS: Piperacillin/Tazobactam 3.375 GM in 0.9 % Sodium Chloride Mini Bag 100 ML IVPB SCH (23:34)
[2021-07-16] MEDS: Ondansetron 4 MG/2 ML VIAL IVP PRN (23:34)
[2021-07-17 05:31] LABS: Basophils # 0.1 K/mcL (0.0-0.2); Basophils % 0.6 %; Eosinophils % 0.3 %; Hematocrit 31.1 % (37.5-50.1); Hemoglobin 8.9 g/dL (12.9-16.9); Immature Granulocytes % 1.5 % (0-4); Lymphocytes # 0.8 K/mcL (0.6-4.6); Lymphocytes % 9.1 %; Mean Corpuscular HGB Conc 28.6 g/dL (31.6-35.5); Mean Corpuscular Hemoglobin 29.2 pg (28.0-33.3); Mean Platelet Volume 10.2 fL (9.4-12.4); Monocytes # 0.8 K/mcL (0.0-1.3); Monocytes % 8.6 %; Nucleated Red Blood Cells 0.2 /100 WBC (0); Platelet Count 242 K/mcL (140-400); Red Blood Count 3.05 M/mcL (4.19-5.50); Red Cell Distribution Width 17.1 % (11.5-14.5); Segmented Neutrophils % 79.9 %; White Blood Count 8.9 K/mcL (4.3-11.1)
[2021-07-17 05:32] LABS: Neutrophils # 7.1 K/mcL (1.6-8.9)
[2021-07-17 05:44] LABS: Calcium 9.5 mg/dL (8.6-10.3); Potassium 4.4 mEq/L (3.5-5.1)
[2021-07-17 05:59] LABS: Anisocytosis 1+ (Not Present); Platelet Estimate Normal (Normal); Polychromasia 1+ (Not Present)
[2021-07-17 06:05] LABS: Troponin I 0.16 ng/mL (< 0.04)
[2021-07-17] MEDS ORDERED: Loratadine 10 MG TABLET PO PRN (07:30)
[2021-07-17] MEDS ORDERED: D5% in Water 1,000 ML IVC PRN (07:32)
[2021-07-17] MEDS ORDERED: Dextrose Gel 15 GM/37.5 ML TUBE PO PRN ×2 (07:32)
[2021-07-17] MEDS ORDERED: *HR* Dextrose 50 % in Water (Vial) 50 ML VIAL IVP PRN (07:32)
[2021-07-17] MEDS: Aspirin Enteric Coated 81 MG Tablet PO SCH (09:00)
[2021-07-17] MEDS: Renal Vitamin 1 CAP CAPSULE PO SCH (09:00)
[2021-07-17] MEDS: Ascorbic Acid 500 MG TABLET PO SCH (09:00)
[2021-07-17] MEDS: Levothyroxine 25 MCG TABLET PO SCH (09:00)
[2021-07-17] MEDS: QUEtiapine Fumarate 25 MG TABLET PO SCH (09:00)
[2021-07-17] MEDS: Piperacillin/Tazobactam 3.375 GM in 0.9 % Sodium Chloride Mini Bag 100 ML IVPB SCH ×2 (09:01→20:17)
[2021-07-17] MEDS ORDERED: *HR* Heparin 10,000 UNIT/10 ML VIAL IV PRN (10:24)
[2021-07-17] MEDS ORDERED: 0.9 % Sodium Chloride 250 ML IVC PRN (10:24)
[2021-07-17] MEDS ORDERED: 0.9 % Sodium Chloride 1,000 ML PRIME SCH (10:30)
[2021-07-17 11:16] LABS: Hepatitis B Surface Antibody < 3.10 mIU/mL
[2021-07-17 11:26] LABS: Hepatitis B Surface Antigen Nonreactive (Nonreactive)
[2021-07-17] MEDS: Insulin LISPRO 300 UNITS/3 ML VIAL SUBQ SCH ×2 (11:56→19:04)
[2021-07-17] MEDS: lisinopriL 5 MG TABLET PO SCH (13:54)
[2021-07-17] MEDS: Azithromycin 500 MG in 0.9 % Sodium Chloride 250 ML IVPB SCH (19:58)
[2021-07-17] MEDS ORDERED: Acetaminophen 325 MG TABLET PO PRN (20:05)
[2021-07-17] MEDS: QUEtiapine Fumarate 100 MG TABLET PO SCH (20:17)
[2021-07-17] MEDS: traZODone 50 MG TABLET PO SCH (20:26)
[2021-07-17] MEDS: Latanoprost 2.5 ML BOTTLE RIGHT EYE SCH (20:26)
[2021-07-18] MEDS: Insulin LISPRO 300 UNITS/3 ML VIAL SUBQ SCH ×3 (08:20→17:06)
[2021-07-18] MEDS: Piperacillin/Tazobactam 3.375 GM in 0.9 % Sodium Chloride Mini Bag 100 ML IVPB SCH ×2 (08:21→20:42)
[2021-07-18] MEDS: Renal Vitamin 1 CAP CAPSULE PO SCH (08:21)
[2021-07-18] MEDS: Aspirin Enteric Coated 81 MG Tablet PO SCH (08:43)
[2021-07-18] MEDS: Levothyroxine 25 MCG TABLET PO SCH (08:44)
[2021-07-18] MEDS: QUEtiapine Fumarate 25 MG TABLET PO SCH (08:46)
[2021-07-18] MEDS: Ascorbic Acid 500 MG TABLET PO SCH (08:46)
[2021-07-18 09:07] LABS: Hemoglobin 9.7 g/dL (12.9-16.9); Immature Granulocytes % 0.8 % (0-4); White Blood Count 9.8 K/mcL (4.3-11.1)
[2021-07-18 09:08] LABS: Basophils % 0.3 %; Eosinophils # 0.1 K/mcL (0.0-0.6); Eosinophils % 0.5 %; Hematocrit 33.4 % (37.5-50.1); Lymphocytes # 0.7 K/mcL (0.6-4.6); Lymphocytes % 6.7 %; Mean Corpuscular Hemoglobin 29.7 pg (28.0-33.3); Mean Corpuscular Volume 102.1 fL (83.0-100.0); Monocytes # 1.1 K/mcL (0.0-1.3); Neutrophils # 7.9 K/mcL (1.6-8.9); Nucleated Red Blood Cells 0.6 /100 WBC (0); Platelet Count 247 K/mcL (140-400); Red Blood Count 3.27 M/mcL (4.19-5.50); Red Cell Distribution Width 17.5 % (11.5-14.5); Segmented Neutrophils % 80.7 %
[2021-07-18 09:25] LABS: Calcium 9.4 mg/dL (8.6-10.3); Potassium 4.3 mEq/L (3.5-5.1)
[2021-07-18 09:36] LABS: Troponin I 0.32 ng/mL (< 0.04)
[2021-07-18] MEDS: lisinopriL 5 MG TABLET PO SCH (13:06)
[2021-07-18] MEDS: Azithromycin 500 MG in 0.9 % Sodium Chloride 250 ML IVPB SCH (17:06)
[2021-07-18] MEDS: Latanoprost 2.5 ML BOTTLE RIGHT EYE SCH (18:02)
[2021-07-18] MEDS: traZODone 50 MG TABLET PO SCH (20:46)
[2021-07-18] MEDS: QUEtiapine Fumarate 100 MG TABLET PO SCH (20:51)
[2021-07-18] MEDS ORDERED: *HR* LORazepam 2 MG/ML VIAL IVP ONE (21:39)
[2021-07-19] MEDS: Metoprolol XL (24 HR) Succ 25 MG TAB.ER.24H PO SCH (08:24)
[2021-07-19] MEDS: Aspirin Enteric Coated 81 MG Tablet PO SCH (08:25)
[2021-07-19] MEDS: QUEtiapine Fumarate 25 MG TABLET PO SCH (08:25)
[2021-07-19] MEDS: Levothyroxine 25 MCG TABLET PO SCH (08:25)
[2021-07-19] MEDS: Renal Vitamin 1 CAP CAPSULE PO SCH (08:25)
[2021-07-19] MEDS: Ascorbic Acid 500 MG TABLET PO SCH (08:25)
[2021-07-19] MEDS: Ondansetron 4 MG/2 ML VIAL IVP PRN (08:26)
[2021-07-19] MEDS: Piperacillin/Tazobactam 3.375 GM in 0.9 % Sodium Chloride Mini Bag 100 ML IVPB SCH ×2 (08:26→21:23)
[2021-07-19] MEDS: Insulin LISPRO 300 UNITS/3 ML VIAL SUBQ SCH ×3 (08:27→16:55)
[2021-07-19] MEDS ORDERED: Perflutren Lipid Microsphere 1.3 ML in 0.9 % Sodium Chloride 8.7 ML IVP PRN (09:21)
[2021-07-19 09:53] LABS: Hematocrit 31.9 % (37.5-50.1); Hemoglobin 9.2 g/dL (12.9-16.9); Mean Corpuscular HGB Conc 28.8 g/dL (31.6-35.5); Mean Corpuscular Hemoglobin 29.8 pg (28.0-33.3); Mean Corpuscular Volume 103.2 fL (83.0-100.0); Mean Platelet Volume 10.3 fL (9.4-12.4); Nucleated Red Blood Cells 0.2 /100 WBC (0); Platelet Count 262 K/mcL (140-400); Red Blood Count 3.09 M/mcL (4.19-5.50); White Blood Count 10.9 K/mcL (4.3-11.1)
[2021-07-19 10:11] LABS: Potassium 4.3 mEq/L (3.5-5.1)
[2021-07-19 10:41] LABS: Lymphocytes # 0.4 K/mcL (0.6-4.6); Monocytes # 0.7 K/mcL (0.0-1.3); Neutrophils # 9.8 K/mcL (1.6-8.9); Platelet Estimate Normal (Normal)
[2021-07-19 11:08] LABS: Calcium 9.2 mg/dL (8.6-10.3)
[2021-07-19] MEDS: lisinopriL 5 MG TABLET PO SCH (13:02)
[2021-07-19] MEDS: Latanoprost 2.5 ML BOTTLE RIGHT EYE SCH (16:57)
[2021-07-19] MEDS: Azithromycin 500 MG in 0.9 % Sodium Chloride 250 ML IVPB SCH (16:58)
[2021-07-19] MEDS: traZODone 50 MG TABLET PO SCH (21:26)
[2021-07-19] MEDS: QUEtiapine Fumarate 100 MG TABLET PO SCH (21:27)
[2021-07-20 02:25] LABS: Basophils % 0.5 %; Hematocrit 30.5 % (37.5-50.1)
[2021-07-20 02:27] LABS: Basophils # 0.1 K/mcL (0.0-0.2); Eosinophils # 0.3 K/mcL (0.0-0.6); Eosinophils % 2.5 %; Hemoglobin 8.6 g/dL (12.9-16.9); Immature Granulocytes % 1.2 % (0-4); Lymphocytes # 0.7 K/mcL (0.6-4.6); Lymphocytes % 7.3 %; Mean Corpuscular HGB Conc 28.2 g/dL (31.6-35.5); Mean Corpuscular Hemoglobin 29.2 pg (28.0-33.3); Mean Corpuscular Volume 103.4 fL (83.0-100.0); Monocytes # 0.7 K/mcL (0.0-1.3); Monocytes % 7.3 %; Neutrophils # 8.1 K/mcL (1.6-8.9); Nucleated Red Blood Cells 0.3 /100 WBC (0); Platelet Count 220 K/mcL (140-400); Red Blood Count 2.95 M/mcL (4.19-5.50); Red Cell Distribution Width 18.2 % (11.5-14.5); Segmented Neutrophils % 81.2 %
[2021-07-20 02:38] LABS: Calcium 9.3 mg/dL (8.6-10.3); Potassium 4.3 mEq/L (3.5-5.1)
[2021-07-20 03:10] LABS: Anisocytosis 1+ (Not Present); Hypochromasia Present (Not Present); Platelet Estimate Normal (Normal)
[2021-07-20] MEDS: Piperacillin/Tazobactam 3.375 GM in 0.9 % Sodium Chloride Mini Bag 100 ML IVPB SCH ×2 (08:07→21:26)
[2021-07-20] MEDS: Metoprolol XL (24 HR) Succ 25 MG TAB.ER.24H PO SCH (08:07)
[2021-07-20] MEDS: Renal Vitamin 1 CAP CAPSULE PO SCH (08:07)
[2021-07-20] MEDS ORDERED: 0.9 % Sodium Chloride 250 ML IVC PRN (08:15)
[2021-07-20] MEDS: Levothyroxine 25 MCG TABLET PO SCH (08:17)
[2021-07-20] MEDS: Ascorbic Acid 500 MG TABLET PO SCH (08:17)
[2021-07-20] MEDS: QUEtiapine Fumarate 25 MG TABLET PO SCH (08:17)
[2021-07-20] MEDS: Aspirin Enteric Coated 81 MG Tablet PO SCH (08:17)
[2021-07-20] MEDS: Insulin LISPRO 300 UNITS/3 ML VIAL SUBQ SCH ×3 (08:20→18:32)
[2021-07-20] MEDS: lisinopriL 5 MG TABLET PO SCH (16:24)
[2021-07-20] MEDS: Azithromycin 500 MG in 0.9 % Sodium Chloride 250 ML IVPB SCH (18:32)
[2021-07-20] MEDS: Ondansetron 4 MG/2 ML VIAL IVP PRN (20:24)
[2021-07-20] MEDS: Latanoprost 2.5 ML BOTTLE RIGHT EYE SCH (20:25)
[2021-07-20] MEDS: traZODone 50 MG TABLET PO SCH (21:23)
[2021-07-20] MEDS: QUEtiapine Fumarate 100 MG TABLET PO SCH (21:24)
[2021-07-21] MEDS: Renal Vitamin 1 CAP CAPSULE PO SCH (09:35)
[2021-07-21] MEDS: Metoprolol XL (24 HR) Succ 25 MG TAB.ER.24H PO SCH (09:35)
[2021-07-21] MEDS: Piperacillin/Tazobactam 3.375 GM in 0.9 % Sodium Chloride Mini Bag 100 ML IVPB SCH (09:39)
[2021-07-21] MEDS: Levothyroxine 25 MCG TABLET PO SCH (09:40)
[2021-07-21] MEDS: Ascorbic Acid 500 MG TABLET PO SCH (09:40)
[2021-07-21] MEDS: Aspirin Enteric Coated 81 MG Tablet PO SCH (09:40)
[2021-07-21] MEDS: Insulin LISPRO 300 UNITS/3 ML VIAL SUBQ SCH ×3 (09:41→16:59)
[2021-07-21] MEDS: QUEtiapine Fumarate 25 MG TABLET PO SCH (09:41)
[2021-07-21] MEDS: lisinopriL 5 MG TABLET PO SCH (14:01)
[2021-07-21] MEDS: Latanoprost 2.5 ML BOTTLE RIGHT EYE SCH (18:34)
[2021-07-21] MEDS: Ondansetron 4 MG/2 ML VIAL IVP PRN (20:25)
[2021-07-21] MEDS: QUEtiapine Fumarate 100 MG TABLET PO SCH (21:16)
[2021-07-21] MEDS: traZODone 50 MG TABLET PO SCH (21:16)
[2021-07-21 23:02] LABS: Hemoglobin 9.4 g/dL (12.9-16.9); Mean Corpuscular Volume 103.8 fL (83.0-100.0)
[2021-07-21 23:04] LABS: Hematocrit 32.6 % (37.5-50.1); Mean Corpuscular HGB Conc 28.8 g/dL (31.6-35.5); Mean Corpuscular Hemoglobin 29.9 pg (28.0-33.3); Mean Platelet Volume 9.5 fL (9.4-12.4); Platelet Count 240 K/mcL (140-400); Red Blood Count 3.14 M/mcL (4.19-5.50); Red Cell Distribution Width 18.6 % (11.5-14.5); White Blood Count 13.2 K/mcL (4.3-11.1)
[2021-07-21 23:25] LABS: Calcium 9.2 mg/dL (8.6-10.3); Magnesium 1.8 mg/dL (1.6-2.6); Phosphorous 5.3 mg/dL (2.7-4.5); Potassium 4.4 mEq/L (3.5-5.1)
[2021-07-22 01:50] LABS: Basophils % 0.4 %; Eosinophils # 0.1 K/mcL (0.0-0.6); Eosinophils % 1.2 %; Hematocrit 33.4 % (37.5-50.1); Hemoglobin 9.5 g/dL (12.9-16.9); Immature Granulocytes % 0.5 % (0-4); Lymphocytes # 0.6 K/mcL (0.6-4.6); Lymphocytes % 5.2 %; Mean Corpuscular HGB Conc 28.4 g/dL (31.6-35.5); Mean Corpuscular Hemoglobin 29.9 pg (28.0-33.3); Monocytes # 0.7 K/mcL (0.0-1.3); Monocytes % 6.2 %; Neutrophils # 9.7 K/mcL (1.6-8.9); Nucleated Red Blood Cells 0.2 /100 WBC (0); Platelet Count 241 K/mcL (140-400); Red Blood Count 3.18 M/mcL (4.19-5.50); Red Cell Distribution Width 18.6 % (11.5-14.5); Segmented Neutrophils % 86.5 %; White Blood Count 11.2 K/mcL (4.3-11.1)
[2021-07-22 02:05] LABS: Calcium 9.2 mg/dL (8.6-10.3); Potassium 4.5 mEq/L (3.5-5.1)
[2021-07-22 02:12] LABS: Anisocytosis 1+ (Not Present); Hypochromasia Present (Not Present); Platelet Estimate Normal (Normal)
[2021-07-22] MEDS ORDERED: 0.9 % Sodium Chloride 250 ML IVC PRN (07:55)
[2021-07-22] MEDS: Ascorbic Acid 500 MG TABLET PO SCH (08:41)
[2021-07-22] MEDS: Renal Vitamin 1 CAP CAPSULE PO SCH (08:41)
[2021-07-22] MEDS: Levothyroxine 25 MCG TABLET PO SCH (08:41)
[2021-07-22] MEDS: Aspirin Enteric Coated 81 MG Tablet PO SCH (08:41)
[2021-07-22] MEDS: QUEtiapine Fumarate 25 MG TABLET PO SCH (08:41)
[2021-07-22] MEDS: Metoprolol XL (24 HR) Succ 25 MG TAB.ER.24H PO SCH (08:42)
[2021-07-22] MEDS: Insulin LISPRO 300 UNITS/3 ML VIAL SUBQ SCH ×3 (08:46→17:09)
[2021-07-22] MEDS: lisinopriL 5 MG TABLET PO SCH (14:08)
[2021-07-22 17:00] VITALS: BP 106/62; PULSE 76; TEMP 98.4; O2SAT 97
[2021-07-22] MEDS: Latanoprost 2.5 ML BOTTLE RIGHT EYE SCH (17:50)
== END 2021-07-22 19:32 | disposition short-term general hospital (02) | DRG 280 ==
LOC: 2ANU 11:31 → EMEROOARM 11:31 → 2ANU 15:30 → SUATTDRO 16:24
PROVIDERS: ADMIT General Practice; ATTEND Family Medicine

== ENCOUNTER 2021-11-15 18:57 | Inpatient (IN) ==
[2021-11-15] MEDS ORDERED: 0.9 % Sodium Chloride 1,000 ML IVC ONE (20:00)
[2021-11-15 21:10] LABS: Basophils % 0.2 %; Eosinophils % 0.1 %; Hematocrit 32.5 % (37.5-50.1); Hemoglobin 9.5 g/dL (12.9-16.9); Immature Granulocytes % 0.4 % (0-4); Lymphocytes # 0.2 K/mcL (0.6-4.6); Lymphocytes % 1.6 %; Mean Corpuscular HGB Conc 29.2 g/dL (31.6-35.5); Mean Corpuscular Hemoglobin 29.3 pg (28.0-33.3); Mean Corpuscular Volume 100.3 fL (83.0-100.0); Monocytes # 0.4 K/mcL (0.0-1.3); Monocytes % 4.4 %; Neutrophils # 9.1 K/mcL (1.6-8.9); Platelet Count 153 K/mcL (140-400); Red Blood Count 3.24 M/mcL (4.19-5.50); Red Cell Distribution Width 19.7 % (11.5-14.5); Segmented Neutrophils % 93.3 %; White Blood Count 9.7 K/mcL (4.3-11.1)
[2021-11-15 21:21] LABS: ABG Base Excess -1 mEq/L (-2 to 3); ABG HCO3 27 mEq/L (21-27); ABG Oxygen Saturation 96 % (95-98); ABG PCO2 54 mmHg (35-45); ABG PO2 91 mmHg (85-104); ABG TCO2 28 mEq/L (20-26)
[2021-11-15 21:29] LABS: Anisocytosis 1+ (Not Present)
[2021-11-15 21:30] LABS: Hypochromasia Present (Not Present); Microcytosis Present (Not Present); Platelet Estimate Normal (Normal)
[2021-11-15 21:31] LABS: Albumin 4.1 g/dL (3.5-5.7); Albumin/Globulin Ratio 1.4 (1.1-2.2); Bilirubin,Direct 0.2 mg/dL (0.0-0.2); Bilirubin,Indirect 0.4 mg/dL (0.0-1.0); Bilirubin,Total 0.6 mg/dL (0.3-1.0); Calcium 10.1 mg/dL (8.6-10.3); Potassium 4.8 mEq/L (3.5-5.1); Total Protein 7.1 g/dL (6.4-8.9)
[2021-11-15 21:38] LABS: Troponin I 0.08 ng/mL (< 0.04)
[2021-11-15 22:41] LABS: Amphetamine Screen,Urine Negative ng/mL (Cutoff=1000); Barbiturate Screen,Urine Negative ng/mL (Cutoff=200); Benzodiazepines Screen,Urine Negative ng/mL (Cutoff=200); Cannabinoid Screen,Urine Negative ng/mL (Cutoff = 50); Cocaine Screen,Urine Negative ng/mL (Cutoff= 300); Opiate Screen,Urine Negative ng/mL (Cutoff=300); Phencyclidine Screen,Urine Negative ng/mL (Cutoff=25)
[2021-11-15 22:48] LABS: Bilirubin,Urine Negative (Negative); Blood,Urine Negative (Negative); Clarity,Urine Clear (Clear); Color,Urine Light-Yellow (Yellow); Glucose,Urine (UA) 200 mg/dL (Normal); Ketones,Urine Negative (Negative); Leukocyte Esterase,Urine Negative (Negative); Nitrite,Urine Negative (Negative); PH,Urine 8.5 pH Units (5.0-8.0); Protein,Urine >=600 mg/dL (Neg-Trace); RBC,Urine 0-3 per hpf (0-3); Specific Gravity,Urine 1.015 (1.010-1.025); Urobilinogen,Urine Normal (Normal); WBC,Urine 0-3 per hpf (0-3)
[2021-11-15 23:27] LABS: Influenza A PCR Negative (Negative); Influenza B PCR Negative (Negative); Resp. Syncytial Virus PCR Negative (Negative)
[2021-11-15 23:28] LABS: SARS-CoV-2 by PCR (In House) Negative (Negative)
[2021-11-16] MEDS ORDERED: Naloxone 0.4 MG/ML INJ IVP PRN (02:20)
[2021-11-16] MEDS ORDERED: Dextrose Gel 15 GM/37.5 ML TUBE PO PRN ×2 (05:52)
[2021-11-16] MEDS ORDERED: *HR* Dextrose 50 % in Water (Syg) 50 ML SYRINGE IVP PRN (05:52)
[2021-11-16] MEDS ORDERED: D5% in Water 1,000 ML IVC PRN (05:52)
[2021-11-16 06:57] LABS: Basophils % 0.2 %; Eosinophils % 0.1 %; Hematocrit 32.9 % (37.5-50.1); Hemoglobin 9.7 g/dL (12.9-16.9); Immature Granulocytes % 0.6 % (0-4); Lymphocytes # 0.4 K/mcL (0.6-4.6); Lymphocytes % 4.3 %; Mean Corpuscular HGB Conc 29.5 g/dL (31.6-35.5); Mean Corpuscular Hemoglobin 30.1 pg (28.0-33.3); Mean Corpuscular Volume 102.2 fL (83.0-100.0); Mean Platelet Volume 10.7 fL (9.4-12.4); Monocytes # 0.6 K/mcL (0.0-1.3); Monocytes % 7.4 %; Neutrophils # 7.3 K/mcL (1.6-8.9); Platelet Count 138 K/mcL (140-400); Red Blood Count 3.22 M/mcL (4.19-5.50); Red Cell Distribution Width 19.6 % (11.5-14.5); Segmented Neutrophils % 87.4 %; White Blood Count 8.3 K/mcL (4.3-11.1)
[2021-11-16 07:24] LABS: Calcium 9.8 mg/dL (8.6-10.3); Potassium 5.2 mEq/L (3.5-5.1); Troponin I 0.33 ng/mL (< 0.04)
[2021-11-16] MEDS: Aspirin Enteric Coated 81 MG Tablet PO SCH (08:33)
[2021-11-16] MEDS: Insulin LISPRO 300 UNITS/3 ML VIAL SUBQ SCH ×4 (08:33→21:16)
[2021-11-16] MEDS: QUEtiapine Fumarate 25 MG TABLET PO SCH (08:33)
[2021-11-16] MEDS: Ascorbic Acid 500 MG TABLET PO SCH (08:33)
[2021-11-16] MEDS: Metoprolol XL (24 HR) Succ 25 MG TAB.ER.24H PO SCH (08:34)
[2021-11-16] MEDS: Levothyroxine 25 MCG TABLET PO SCH (08:34)
[2021-11-16] MEDS: Renal Vitamin 1 CAP CAPSULE PO SCH (08:34)
[2021-11-16] MEDS: Dorzolamide OPTH 10 ML BOTTLE RIGHT EYE SCH (08:34)
[2021-11-16] MEDS ORDERED: 0.9 % Sodium Chloride 250 ML IVC PRN (08:35)
[2021-11-16] MEDS ORDERED: *HR* Heparin 10,000 UNIT/10 ML VIAL IV PRN (08:35)
[2021-11-16] MEDS ORDERED: 0.9 % Sodium Chloride 1,000 ML PRIME SCH (08:45)
[2021-11-16] MEDS ORDERED: *HR* Heparin 5,000 UNIT/ML VIAL IVP PRN (09:54)
[2021-11-16] MEDS ORDERED: *HR* Heparin 5,000 UNIT/ML VIAL IVP ONE (09:54)
[2021-11-16] MEDS ORDERED: methylPREDNISolone 125 MG/2 ML VIAL IVP ONE (09:55)
[2021-11-16 10:24] LABS: Hepatitis B Surface Antibody < 3.10 mIU/mL
[2021-11-16] MEDS: Azithromycin 500 MG in 0.9 % Sodium Chloride 250 ML IVPB SCH (10:34)
[2021-11-16 10:35] LABS: Hepatitis B Surface Antigen Nonreactive (Nonreactive)
[2021-11-16] MEDS: Heparin 25,000 UNIT/250 ML 25,000 UNIT/250 ML IV.SOLN IVC SCH (10:50)
[2021-11-16] MEDS ORDERED: Albumin 25% 25gram/100mL 25 GM/100 ML IV.SOLN IVPB PRN (11:05)
[2021-11-16] MEDS: Ipratropium/Albuterol Neb 3 ML IH SCH ×4 (11:08→23:00)
[2021-11-16 14:35] LABS: Hematocrit 32.3 % (37.5-50.1); Hemoglobin 9.5 g/dL (12.9-16.9); Immature Platelets 3.3 % (1.1-6.1); Mean Corpuscular HGB Conc 29.4 g/dL (31.6-35.5); Mean Corpuscular Hemoglobin 29.1 pg (28.0-33.3); Mean Corpuscular Volume 98.8 fL (83.0-100.0); Red Blood Count 3.27 M/mcL (4.19-5.50); Red Cell Distribution Width 19.6 % (11.5-14.5); White Blood Count 10.4 K/mcL (4.3-11.1)
[2021-11-16] MEDS: Latanoprost 2.5 ML BOTTLE RIGHT EYE SCH (17:55)
[2021-11-16] MEDS: methylPREDNISolone 125 MG/2 ML VIAL IVP SCH (17:55)
[2021-11-16 18:39] LABS: Heparin anti-factor XA UFH 0.18 IU/mL (0.30-0.70); INR 1.1; Prothrombin Time 12.6 Seconds (9.4-12.1)
[2021-11-16] MEDS: *HR* Heparin 5,000 UNIT/ML VIAL IVP PRN (18:43)
[2021-11-16] MEDS ORDERED: QUEtiapine Fumarate 100 MG TABLET PO SCH (20:00)
[2021-11-16] MEDS ORDERED: Acetaminophen IV 1,000 MG/100 ML BAG IVPB ONE (23:19)
[2021-11-17 00:42] LABS: Hemoglobin 8.6 g/dL (12.9-16.9); Monocytes % 1.6 %; Red Cell Distribution Width 19.4 % (11.5-14.5)
[2021-11-17 00:44] LABS: Hematocrit 29.2 % (37.5-50.1); Hypochromasia Present (Not Present); Immature Granulocytes % 0.7 % (0-4); Lymphocytes # 0.1 K/mcL (0.6-4.6); Lymphocytes % 2.5 %; Mean Corpuscular HGB Conc 29.5 g/dL (31.6-35.5); Mean Corpuscular Volume 101.7 fL (83.0-100.0); Mean Platelet Volume 9.9 fL (9.4-12.4); Monocytes # 0.1 K/mcL (0.0-1.3); Neutrophils # 5.3 K/mcL (1.6-8.9); Platelet Count 130 K/mcL (140-400); Platelet Estimate Normal (Normal); Red Blood Count 2.87 M/mcL (4.19-5.50); Segmented Neutrophils % 95.2 %; White Blood Count 5.6 K/mcL (4.3-11.1)
[2021-11-17 01:16] LABS: Calcium 8.8 mg/dL (8.6-10.3); Potassium 4.2 mEq/L (3.5-5.1)
[2021-11-17] MEDS: methylPREDNISolone 125 MG/2 ML VIAL IVP SCH ×2 (02:42→09:08)
[2021-11-17] MEDS: Ipratropium/Albuterol Neb 3 ML IH SCH ×6 (04:17→23:31)
[2021-11-17] MEDS: Heparin 25,000 UNIT/250 ML 25,000 UNIT/250 ML IV.SOLN IVC SCH (06:35)
[2021-11-17] MEDS: Renal Vitamin 1 CAP CAPSULE PO SCH (09:08)
[2021-11-17] MEDS: Metoprolol XL (24 HR) Succ 25 MG TAB.ER.24H PO SCH (09:08)
[2021-11-17] MEDS: Dorzolamide OPTH 10 ML BOTTLE RIGHT EYE SCH (09:09)
[2021-11-17] MEDS: Insulin LISPRO 300 UNITS/3 ML VIAL SUBQ SCH ×4 (09:09→20:16)
[2021-11-17] MEDS: QUEtiapine Fumarate 25 MG TABLET PO SCH (09:16)
[2021-11-17] MEDS: Levothyroxine 25 MCG TABLET PO SCH (09:16)
[2021-11-17] MEDS: Aspirin Enteric Coated 81 MG Tablet PO SCH (09:16)
[2021-11-17] MEDS: *HR* Heparin 5,000 UNIT/ML VIAL IVP PRN (09:17)
[2021-11-17] MEDS: Ascorbic Acid 500 MG TABLET PO SCH (09:17)
[2021-11-17] MEDS: Azithromycin 500 MG in 0.9 % Sodium Chloride 250 ML IVPB SCH (09:38)
[2021-11-17] MEDS ORDERED: Nitroglycerin 0.4 MG TAB.SUBL SL PRN (12:56)
[2021-11-17] MEDS: *HR* Heparin 5,000 UNIT/ML VIAL SQ SCH ×3 (15:14→20:18)
[2021-11-17] MEDS: Latanoprost 2.5 ML BOTTLE RIGHT EYE SCH (17:52)
[2021-11-17] MEDS: MethylPREDNISolone 40 MG/ML VIAL IVP SCH ×2 (17:52→23:47)
[2021-11-17] MEDS: Melatonin 3 MG TABLET PO PRN (20:16)
[2021-11-17] MEDS ORDERED: QUEtiapine Fumarate 25 MG TABLET PO SCH (21:30)
[2021-11-17] MEDS: Ondansetron ODT 4 MG TAB.RAPDIS PO PRN (21:36)
[2021-11-18] MEDS: Ipratropium/Albuterol Neb 3 ML IH SCH ×3 (03:39→10:54)
[2021-11-18 05:52] LABS: Eosinophils % 0.1 %; Hematocrit 32.4 % (37.5-50.1); Hemoglobin 9.3 g/dL (12.9-16.9); Immature Platelets 7.4 % (1.1-6.1); Lymphocytes # 0.1 K/mcL (0.6-4.6); Lymphocytes % 1.3 %; Mean Corpuscular HGB Conc 28.7 g/dL (31.6-35.5); Mean Corpuscular Hemoglobin 28.8 pg (28.0-33.3); Mean Corpuscular Volume 100.3 fL (83.0-100.0); Mean Platelet Volume 11.9 fL (9.4-12.4); Monocytes # 0.6 K/mcL (0.0-1.3); Monocytes % 6.1 %; Platelet Count 133 K/mcL (140-400); Red Blood Count 3.23 M/mcL (4.19-5.50); Red Cell Distribution Width 19.6 % (11.5-14.5); Segmented Neutrophils % 91.5 %; White Blood Count 10.1 K/mcL (4.3-11.1)
[2021-11-18 06:17] LABS: Neutrophils # 9.2 K/mcL (1.6-8.9)
[2021-11-18 06:18] LABS: Anisocytosis 2+ (Not Present); Macrocytosis Present (Not Present); Platelet Estimate Normal (Normal)
[2021-11-18 06:19] LABS: Hypochromasia Present (Not Present)
[2021-11-18] MEDS: *HR* Heparin 5,000 UNIT/ML VIAL SQ SCH ×3 (06:52→23:33)
[2021-11-18] MEDS: Renal Vitamin 1 CAP CAPSULE PO SCH (07:36)
[2021-11-18] MEDS: Ascorbic Acid 500 MG TABLET PO SCH (07:37)
[2021-11-18] MEDS: Aspirin Enteric Coated 81 MG Tablet PO SCH (07:37)
[2021-11-18] MEDS: Insulin LISPRO 300 UNITS/3 ML VIAL SUBQ SCH ×4 (07:38→20:33)
[2021-11-18] MEDS: Ondansetron ODT 4 MG TAB.RAPDIS PO PRN (07:38)
[2021-11-18] MEDS: MethylPREDNISolone 40 MG/ML VIAL IVP SCH (07:38)
[2021-11-18] MEDS: Levothyroxine 25 MCG TABLET PO SCH (07:38)
[2021-11-18] MEDS: Metoprolol XL (24 HR) Succ 25 MG TAB.ER.24H PO SCH (07:39)
[2021-11-18 08:01] LABS: Calcium 9.2 mg/dL (8.6-10.3); Phosphorous 6.7 mg/dL (2.7-4.5); Potassium 5.1 mEq/L (3.5-5.1)
[2021-11-18] MEDS ORDERED: 0.9 % Sodium Chloride 250 ML IVC PRN (08:31)
[2021-11-18] MEDS ORDERED: *HR* Heparin 10,000 UNIT/10 ML VIAL IV PRN (08:31)
[2021-11-18] MEDS ORDERED: 0.9 % Sodium Chloride 1,000 ML PRIME SCH (08:45)
[2021-11-18] MEDS: Azithromycin 500 MG in 0.9 % Sodium Chloride 250 ML IVPB SCH (10:52)
[2021-11-18] MEDS ORDERED: Ipratropium/Albuterol Neb 3 ML IH PRN (15:13)
[2021-11-18] MEDS: Latanoprost 2.5 ML BOTTLE RIGHT EYE SCH (17:21)
[2021-11-18] MEDS: Melatonin 3 MG TABLET PO PRN (20:30)
[2021-11-19] MEDS: Ondansetron ODT 4 MG TAB.RAPDIS PO PRN ×2 (03:09→23:34)
[2021-11-19] MEDS: *HR* Heparin 5,000 UNIT/ML VIAL SQ SCH ×3 (06:20→21:18)
[2021-11-19] MEDS: Insulin LISPRO 300 UNITS/3 ML VIAL SUBQ SCH ×4 (08:17→20:17)
[2021-11-19] MEDS: Renal Vitamin 1 CAP CAPSULE PO SCH (08:21)
[2021-11-19] MEDS: Azithromycin 250 MG TABLET PO SCH (08:22)
[2021-11-19] MEDS: predniSONE 20 MG TABLET PO SCH (08:22)
[2021-11-19] MEDS: Metoprolol XL (24 HR) Succ 25 MG TAB.ER.24H PO SCH (08:22)
[2021-11-19] MEDS: Levothyroxine 25 MCG TABLET PO SCH (08:22)
[2021-11-19] MEDS: Aspirin Enteric Coated 81 MG Tablet PO SCH (08:22)
[2021-11-19] MEDS: Ascorbic Acid 500 MG TABLET PO SCH (08:22)
[2021-11-19] MEDS: Latanoprost 2.5 ML BOTTLE RIGHT EYE SCH (16:13)
[2021-11-19] MEDS: Melatonin 3 MG TABLET PO PRN (19:50)
[2021-11-19] MEDS: QUEtiapine Fumarate 25 MG TABLET PO SCH (20:30)
[2021-11-20] MEDS: *HR* Heparin 5,000 UNIT/ML VIAL SQ SCH ×3 (05:51→20:45)
[2021-11-20 06:14] LABS: Hematocrit 33.6 % (37.5-50.1); Hemoglobin 9.5 g/dL (12.9-16.9); Mean Corpuscular HGB Conc 28.3 g/dL (31.6-35.5); Mean Corpuscular Volume 102.4 fL (83.0-100.0); Mean Platelet Volume 10.4 fL (9.4-12.4); Platelet Count 154 K/mcL (140-400); Red Blood Count 3.28 M/mcL (4.19-5.50); Red Cell Distribution Width 19.7 % (11.5-14.5); White Blood Count 6.4 K/mcL (4.3-11.1)
[2021-11-20 06:53] LABS: Calcium 8.9 mg/dL (8.6-10.3); Potassium 5.7 mEq/L (3.5-5.1)
[2021-11-20] MEDS ORDERED: 0.9 % Sodium Chloride 250 ML IVC PRN (08:23)
[2021-11-20] MEDS: Insulin LISPRO 300 UNITS/3 ML VIAL SUBQ SCH ×4 (08:37→21:22)
[2021-11-20] MEDS ORDERED: Albumin 25% 25gram/100mL 25 GM/100 ML IV.SOLN IVPB ONE ×2 (09:29→18:26)
[2021-11-20] MEDS ORDERED: *HR* Heparin 5,000 UNIT/ML VIAL ONE (11:08)
[2021-11-20] MEDS: Renal Vitamin 1 CAP CAPSULE PO SCH (11:14)
[2021-11-20] MEDS: Levothyroxine 25 MCG TABLET PO SCH (11:14)
[2021-11-20] MEDS: predniSONE 20 MG TABLET PO SCH (11:14)
[2021-11-20] MEDS: Ascorbic Acid 500 MG TABLET PO SCH (11:14)
[2021-11-20] MEDS: Metoprolol XL (24 HR) Succ 25 MG TAB.ER.24H PO SCH (11:14)
[2021-11-20] MEDS: Aspirin Enteric Coated 81 MG Tablet PO SCH (11:14)
[2021-11-20] MEDS: Azithromycin 250 MG TABLET PO SCH (11:19)
[2021-11-20] MEDS ORDERED: Azithromycin 250 MG TABLET PO ONE (13:00)
[2021-11-20] MEDS: QUEtiapine Fumarate 25 MG TABLET PO SCH (20:41)
[2021-11-20] MEDS ORDERED: QUEtiapine Fumarate 25 MG TABLET PO SCH (21:00)
[2021-11-20] MEDS: Latanoprost 2.5 ML BOTTLE RIGHT EYE SCH (21:21)
[2021-11-21 02:15] LABS: Basophils % 0.2 %; Eosinophils % 0.4 %; Immature Granulocytes % 1.6 % (0-4); Monocytes % 13.1 %; Red Cell Distribution Width 19.2 % (11.5-14.5)
[2021-11-21 02:17] LABS: Lymphocytes # 0.4 K/mcL (0.6-4.6); Lymphocytes % 7.2 %; Mean Corpuscular HGB Conc 29.6 g/dL (31.6-35.5); Mean Corpuscular Hemoglobin 28.9 pg (28.0-33.3); Mean Corpuscular Volume 97.5 fL (83.0-100.0); Mean Platelet Volume 10.7 fL (9.4-12.4); Monocytes # 0.8 K/mcL (0.0-1.3); Neutrophils # 4.4 K/mcL (1.6-8.9); Platelet Count 170 K/mcL (140-400); Red Blood Count 2.77 M/mcL (4.19-5.50); Segmented Neutrophils % 77.5 %; White Blood Count 5.7 K/mcL (4.3-11.1)
[2021-11-21 02:24] LABS: Anisocytosis 2+ (Not Present); Hypochromasia Present (Not Present); Platelet Estimate Normal (Normal)
[2021-11-21 04:10] LABS: Calcium 8.5 mg/dL (8.6-10.3); Magnesium 1.8 mg/dL (1.6-2.6); Potassium 3.9 mEq/L (3.5-5.1)
[2021-11-21] MEDS: *HR* Heparin 5,000 UNIT/ML VIAL SQ SCH ×3 (04:12→20:41)
[2021-11-21] MEDS ORDERED: 0.9 % Sodium Chloride 250 ML IV ONE (04:16)
[2021-11-21] MEDS: Insulin LISPRO 300 UNITS/3 ML VIAL SUBQ SCH ×4 (08:47→20:43)
[2021-11-21] MEDS: Renal Vitamin 1 CAP CAPSULE PO SCH (08:56)
[2021-11-21] MEDS: predniSONE 20 MG TABLET PO SCH (08:56)
[2021-11-21] MEDS: Ascorbic Acid 500 MG TABLET PO SCH (08:57)
[2021-11-21] MEDS: Metoprolol XL (24 HR) Succ 25 MG TAB.ER.24H PO SCH (08:57)
[2021-11-21] MEDS: Levothyroxine 25 MCG TABLET PO SCH (09:03)
[2021-11-21] MEDS: Aspirin Enteric Coated 81 MG Tablet PO SCH (09:03)
[2021-11-21] MEDS: Latanoprost 2.5 ML BOTTLE RIGHT EYE SCH (17:53)
[2021-11-21] MEDS: QUEtiapine Fumarate 25 MG TABLET PO SCH (20:41)
[2021-11-21] MEDS: Ondansetron ODT 4 MG TAB.RAPDIS PO PRN (22:52)
[2021-11-22 04:10] LABS: Hematocrit 26.2 % (37.5-50.1); Hemoglobin 8.1 g/dL (12.9-16.9); Mean Corpuscular HGB Conc 30.9 g/dL (31.6-35.5); Mean Corpuscular Hemoglobin 29.3 pg (28.0-33.3); Mean Corpuscular Volume 94.9 fL (83.0-100.0); Mean Platelet Volume 10.5 fL (9.4-12.4); Platelet Count 180 K/mcL (140-400); Red Blood Count 2.76 M/mcL (4.19-5.50); White Blood Count 6.8 K/mcL (4.3-11.1)
[2021-11-22 04:26] LABS: Calcium 9.2 mg/dL (8.6-10.3); Potassium 4.8 mEq/L (3.5-5.1)
[2021-11-22] MEDS: *HR* Heparin 5,000 UNIT/ML VIAL SQ SCH ×3 (05:16→19:37)
[2021-11-22] MEDS: Insulin LISPRO 300 UNITS/3 ML VIAL SUBQ SCH ×4 (08:13→22:58)
[2021-11-22] MEDS: Levothyroxine 25 MCG TABLET PO SCH (08:14)
[2021-11-22] MEDS: Renal Vitamin 1 CAP CAPSULE PO SCH (08:14)
[2021-11-22] MEDS: Ascorbic Acid 500 MG TABLET PO SCH (08:14)
[2021-11-22] MEDS: Aspirin Enteric Coated 81 MG Tablet PO SCH (08:14)
[2021-11-22] MEDS: Metoprolol XL (24 HR) Succ 25 MG TAB.ER.24H PO SCH (08:15)
[2021-11-22] MEDS: QUEtiapine Fumarate 25 MG TABLET PO SCH (19:37)
[2021-11-22] MEDS: Latanoprost 2.5 ML BOTTLE RIGHT EYE SCH (19:38)
[2021-11-23] MEDS: *HR* Heparin 5,000 UNIT/ML VIAL SQ SCH ×4 (06:11→21:47)
[2021-11-23] MEDS ORDERED: 0.9 % Sodium Chloride 250 ML IVC PRN (07:36)
[2021-11-23] MEDS: Insulin LISPRO 300 UNITS/3 ML VIAL SUBQ SCH ×4 (10:25→21:45)
[2021-11-23] MEDS: Ascorbic Acid 500 MG TABLET PO SCH (10:55)
[2021-11-23] MEDS: Levothyroxine 25 MCG TABLET PO SCH (10:56)
[2021-11-23] MEDS: Renal Vitamin 1 CAP CAPSULE PO SCH (10:56)
[2021-11-23] MEDS: Metoprolol XL (24 HR) Succ 25 MG TAB.ER.24H PO SCH (10:56)
[2021-11-23] MEDS: Aspirin Enteric Coated 81 MG Tablet PO SCH (10:56)
[2021-11-23] MEDS ORDERED: Lidocaine/EPI 1:100k 1% 50 ML VIAL ONE (13:19)
[2021-11-23] MEDS ORDERED: Heparin 1,000 UNITS/500 mL 500 ML ONE (13:19)
[2021-11-23] MEDS ORDERED: *HR* Heparin 5,000 UNIT/ML VIAL ONE (13:44)
[2021-11-23 13:59] LABS: Basophils % 0.1 %; Eosinophils # 0.1 K/mcL (0.0-0.6); Eosinophils % 0.8 %; Hematocrit 29.2 % (37.5-50.1); Hemoglobin 8.7 g/dL (12.9-16.9); Immature Granulocytes % 1.3 % (0-4); Lymphocytes # 0.4 K/mcL (0.6-4.6); Lymphocytes % 4.1 %; Mean Corpuscular HGB Conc 29.8 g/dL (31.6-35.5); Mean Corpuscular Hemoglobin 28.5 pg (28.0-33.3); Mean Corpuscular Volume 95.7 fL (83.0-100.0); Mean Platelet Volume 10.4 fL (9.4-12.4); Monocytes % 8.9 %; Neutrophils # 9.2 K/mcL (1.6-8.9); Platelet Count 208 K/mcL (140-400); Red Blood Count 3.05 M/mcL (4.19-5.50); Segmented Neutrophils % 84.8 %
[2021-11-23 14:08] LABS: White Blood Count 10.8 K/mcL (4.3-11.1)
[2021-11-23 14:16] LABS: Calcium 9.3 mg/dL (8.6-10.3); Potassium 5.1 mEq/L (3.5-5.1)
[2021-11-23] MEDS: Melatonin 3 MG TABLET PO PRN (21:47)
[2021-11-23] MEDS: QUEtiapine Fumarate 25 MG TABLET PO SCH (21:47)
[2021-11-23] MEDS: Latanoprost 2.5 ML BOTTLE RIGHT EYE SCH (21:48)
[2021-11-24] MEDS: *HR* Heparin 5,000 UNIT/ML VIAL SQ SCH ×2 (06:17→12:51)
[2021-11-24] MEDS: Metoprolol XL (24 HR) Succ 25 MG TAB.ER.24H PO SCH (08:27)
[2021-11-24] MEDS: Ascorbic Acid 500 MG TABLET PO SCH (08:27)
[2021-11-24] MEDS: Renal Vitamin 1 CAP CAPSULE PO SCH (08:27)
[2021-11-24] MEDS: Aspirin Enteric Coated 81 MG Tablet PO SCH (08:27)
[2021-11-24] MEDS: Levothyroxine 25 MCG TABLET PO SCH (08:27)
[2021-11-24] MEDS: Insulin LISPRO 300 UNITS/3 ML VIAL SUBQ SCH ×3 (08:28→16:57)
[2021-11-24 11:31] VITALS: BP 106/54; PULSE 67; TEMP 98.5
[2021-11-24 14:08] VITALS: O2SAT 85
== END 2021-11-24 16:59 | disposition home health service (06) | DRG 280 ==
LOC: EMEROOARM 18:57 → 2ANU 18:57 → SUATTDRO 11-16 12:11
PROVIDERS: ADMIT Internal Medicine; ATTEND Internal Medicine

== ENCOUNTER 2021-12-27 09:15 | Inpatient (IN) ==
[2021-12-27] MEDS ORDERED: Ipratropium/Albuterol Neb 3 ML IH ONE (09:35)
[2021-12-27] MEDS ORDERED: Furosemide 40 MG in 0.9 % Sodium Chloride 50 ML IVPB ONE (09:41)
[2021-12-27] MEDS ORDERED: methylPREDNISolone 125 MG/2 ML VIAL IVP ONE (09:42)
[2021-12-27] MEDS ORDERED: Furosemide 40 MG/4 ML VIAL IVP ONE (10:00)
[2021-12-27 10:40] LABS: Basophils % 0.3 %; Eosinophils % 0.1 %; Hemoglobin 8.4 g/dL (12.9-16.9); Immature Granulocytes % 0.5 % (0-4); Lymphocytes # 0.2 K/mcL (0.6-4.6); Lymphocytes % 3.1 %; Mean Platelet Volume 10.3 fL (9.4-12.4); Monocytes # 0.4 K/mcL (0.0-1.3); Monocytes % 5.4 %; Neutrophils # 6.9 K/mcL (1.6-8.9); Platelet Count 156 K/mcL (140-400); Red Blood Count 2.71 M/mcL (4.19-5.50); Segmented Neutrophils % 90.6 %; White Blood Count 7.6 K/mcL (4.3-11.1)
[2021-12-27 10:42] LABS: Bilirubin,Urine Negative (Negative); Blood,Urine Negative (Negative); Clarity,Urine Clear (Clear); Color,Urine Light-Yellow (Yellow); Glucose,Urine (UA) 200 mg/dL (Normal); Ketones,Urine Negative (Negative); Leukocyte Esterase,Urine Negative (Negative); Nitrite,Urine Negative (Negative); Protein,Urine >=300 mg/dL (Neg-Trace); Specific Gravity,Urine 1.012 (1.010-1.025); Squamous Epithelial Cell,Urine Few per hpf (None-Few); Urobilinogen,Urine Normal (Normal); WBC,Urine 0-3 per hpf (0-3)
[2021-12-27 10:49] LABS: INR 1.3; Prothrombin Time 14.5 Seconds (9.4-12.1)
[2021-12-27 10:52] LABS: Activated Partial Thrombo Time 30.6 Seconds (26.0-36.0)
[2021-12-27 11:03] LABS: Calcium 9.8 mg/dL (8.6-10.3); Potassium 6.3 mEq/L (3.5-5.1); Troponin I 0.1 ng/mL (< 0.04)
[2021-12-27 11:13] LABS: Influenza A PCR Negative (Negative); Influenza B PCR Negative (Negative); Resp. Syncytial Virus PCR Negative (Negative)
[2021-12-27 11:14] LABS: SARS-CoV-2 by PCR (In House) Negative (Negative)
[2021-12-27] MEDS ORDERED: Insulin Human Regular 10 UNIT in 0.9 % Sodium Chloride 10 ML IV ONE (12:08)
[2021-12-27] MEDS ORDERED: *HR* Dextrose 50 % in Water (Syg) 50 ML SYRINGE IVP ONE (12:08)
[2021-12-27] MEDS ORDERED: Ondansetron ODT 4 MG TAB.RAPDIS SL PRN (12:52)
[2021-12-27] MEDS ORDERED: Mag Hydrox/Al Hydrox/Simeth 30 ML UDC PO PRN (12:52)
[2021-12-27] MEDS ORDERED: Naloxone 0.4 MG/ML INJ IVP PRN (12:52)
[2021-12-27] MEDS ORDERED: Melatonin 3 MG TABLET PO PRN (12:52)
[2021-12-27] MEDS ORDERED: Albuterol 2.5 MG/3 ML NEBULIZER IH PRN (12:58)
[2021-12-27] MEDS ORDERED: *HR* Dextrose 50 % in Water (Syg) 50 ML SYRINGE IVP PRN (13:01)
[2021-12-27] MEDS ORDERED: Dextrose Gel 15 GM/37.5 ML TUBE PO PRN ×2 (13:01)
[2021-12-27] MEDS ORDERED: D5% in Water 1,000 ML IVC PRN (13:01)
[2021-12-27] MEDS ORDERED: Perflutren Lipid Microsphere 1.3 ML in 0.9 % Sodium Chloride 8.7 ML IVP PRN (13:03)
[2021-12-27] MEDS ORDERED: 0.9 % Sodium Chloride 250 ML IVC PRN ×2 (13:04→13:08)
[2021-12-27] MEDS ORDERED: *HR* Heparin 10,000 UNIT/10 ML VIAL IV PRN (13:04)
[2021-12-27] MEDS ORDERED: 0.9 % Sodium Chloride 2,000 ML ONE (13:14)
[2021-12-27] MEDS ORDERED: 0.9 % Sodium Chloride 1,000 ML PRIME SCH (13:15)
[2021-12-27 13:18] LABS: Magnesium 1.8 mg/dL (1.6-2.6); Phosphorous 5.4 mg/dL (2.7-4.5)
[2021-12-27] MEDS ORDERED: Ondansetron 4 MG/2 ML VIAL IM ONE (13:18)
[2021-12-27 13:59] LABS: Hepatitis B Surface Antibody < 3.10 mIU/mL
[2021-12-27 14:10] LABS: Hepatitis B Surface Antigen Nonreactive (Nonreactive)
[2021-12-27] MEDS: *HR* Heparin 5,000 UNIT/ML VIAL SQ SCH (19:59)
[2021-12-27] MEDS: Furosemide 40 MG/4 ML VIAL IVP SCH (19:59)
[2021-12-27] MEDS ORDERED: QUEtiapine Fumarate 100 MG TABLET PO SCH (21:00)
[2021-12-27] MEDS: Insulin LISPRO 300 UNITS/3 ML VIAL SUBQ SCH (21:22)
[2021-12-27] MEDS ORDERED: Ondansetron 4 MG/2 ML VIAL IVP ONE (22:24)
[2021-12-27] MEDS: Ipratropium/Albuterol Neb 3 ML IH SCH (23:06)
[2021-12-28 01:38] LABS: Potassium 7.6 mEq/L (3.5-5.1); Troponin I 0.1 ng/mL (< 0.04)
[2021-12-28] MEDS: Ipratropium/Albuterol Neb 3 ML IH SCH ×6 (01:52→20:10)
[2021-12-28] MEDS ORDERED: SODIUM ZIRCONIUM CYCLOSILICATE 5 GM POWD.PACK PO ONE (01:56)
[2021-12-28] MEDS ORDERED: Albuterol 2.5 MG/3 ML NEBULIZER IH ONE (01:56)
[2021-12-28] MEDS ORDERED: *HR* Dextrose 50 % in Water (Syg) 50 ML SYRINGE IVP ONE (01:56)
[2021-12-28] MEDS ORDERED: Insulin Human Regular 10 UNIT in 0.9 % Sodium Chloride 10 ML IV ONE (01:56)
[2021-12-28] MEDS: Insulin LISPRO 300 UNITS/3 ML VIAL SUBQ SCH ×5 (02:11→23:23)
[2021-12-28] MEDS: SODIUM ZIRCONIUM CYCLOSILICATE 5 GM POWD.PACK PO SCH ×2 (02:11→09:00)
[2021-12-28] MEDS: Calcium Gluconate 1gm/50mL 1 GM/50 ML BAG IVPB SCH ×2 (02:51→03:48)
[2021-12-28] MEDS: *HR* Heparin 5,000 UNIT/ML VIAL SQ SCH ×2 (04:49→15:45)
[2021-12-28 05:10] LABS: Potassium 6.5 mEq/L (3.5-5.1); Troponin I 0.12 ng/mL (< 0.04)
[2021-12-28 05:20] LABS: Albumin 3.3 g/dL (3.5-5.7); Albumin/Globulin Ratio 1.3 (1.1-2.2); Bilirubin,Total 0.4 mg/dL (0.3-1.0); Calcium 10.1 mg/dL (8.6-10.3); Globulin 2.5 g/dL (2.4-3.5); Total Protein 5.8 g/dL (6.4-8.9)
[2021-12-28] MEDS: Levothyroxine 25 MCG TABLET PO SCH (06:14)
[2021-12-28] MEDS ORDERED: 0.9 % Sodium Chloride 250 ML IVC PRN (07:33)
[2021-12-28] MEDS: Metoprolol XL (24 HR) Succ 25 MG TAB.ER.24H PO SCH (08:00)
[2021-12-28] MEDS: Furosemide 40 MG/4 ML VIAL IVP SCH ×2 (08:00→15:43)
[2021-12-28] MEDS: predniSONE 20 MG TABLET PO SCH (08:33)
[2021-12-28] MEDS: MethylPREDNISolone 40 MG/ML VIAL IVP SCH ×3 (08:33→23:21)
[2021-12-28] MEDS: Renal Vitamin 1 CAP CAPSULE PO SCH (08:33)
[2021-12-28] MEDS: Aspirin Enteric Coated 81 MG Tablet PO SCH (08:33)
[2021-12-28] MEDS ORDERED: QUEtiapine Fumarate 25 MG TABLET PO SCH (09:00)
[2021-12-28] MEDS: lisinopriL 5 MG TABLET PO SCH (13:00)
[2021-12-28] MEDS: QUEtiapine Fumarate 25 MG TABLET PO SCH (19:52)
[2021-12-29] MEDS: Ipratropium/Albuterol Neb 3 ML IH SCH ×6 (00:06→20:34)
[2021-12-29] MEDS: Latanoprost 2.5 ML BOTTLE RIGHT EYE SCH ×2 (00:41→17:00)
[2021-12-29 02:17] LABS: Immature Granulocytes % 0.9 % (0-4)
[2021-12-29 02:18] LABS: Hematocrit 29.7 % (37.5-50.1); Hemoglobin 8.2 g/dL (12.9-16.9); Lymphocytes # 0.1 K/mcL (0.6-4.6); Lymphocytes % 1.6 %; Mean Corpuscular HGB Conc 27.6 g/dL (31.6-35.5); Mean Corpuscular Hemoglobin 30.3 pg (28.0-33.3); Mean Corpuscular Volume 109.6 fL (83.0-100.0); Mean Platelet Volume 10.5 fL (9.4-12.4); Monocytes # 0.3 K/mcL (0.0-1.3); Neutrophils # 6.3 K/mcL (1.6-8.9); Nucleated Red Blood Cells 0.7 /100 WBC (0); Platelet Count 153 K/mcL (140-400); Red Blood Count 2.71 M/mcL (4.19-5.50); Red Cell Distribution Width 21.9 % (11.5-14.5); Segmented Neutrophils % 93.5 %; White Blood Count 6.7 K/mcL (4.3-11.1)
[2021-12-29 02:31] LABS: Calcium 9.4 mg/dL (8.6-10.3); Magnesium 1.9 mg/dL (1.6-2.6); Potassium 6.1 mEq/L (3.5-5.1)
[2021-12-29 03:01] LABS: Anisocytosis 2+ (Not Present); Hypochromasia Present (Not Present); Microcytosis Present (Not Present); Polychromasia 1+ (Not Present)
[2021-12-29 03:02] LABS: Platelet Estimate Normal (Normal)
[2021-12-29] MEDS: Levothyroxine 25 MCG TABLET PO SCH (05:00)
[2021-12-29] MEDS: *HR* Heparin 5,000 UNIT/ML VIAL SQ SCH ×4 (05:00→20:49)
[2021-12-29] MEDS: Aspirin Enteric Coated 81 MG Tablet PO SCH (07:59)
[2021-12-29] MEDS: Metoprolol XL (24 HR) Succ 25 MG TAB.ER.24H PO SCH (07:59)
[2021-12-29] MEDS: predniSONE 20 MG TABLET PO SCH (07:59)
[2021-12-29] MEDS: MethylPREDNISolone 40 MG/ML VIAL IVP SCH ×3 (07:59→23:31)
[2021-12-29] MEDS: Renal Vitamin 1 CAP CAPSULE PO SCH (07:59)
[2021-12-29] MEDS: Insulin LISPRO 300 UNITS/3 ML VIAL SUBQ SCH ×4 (08:00→21:16)
[2021-12-29] MEDS: Furosemide 40 MG/4 ML VIAL IVP SCH ×2 (08:00→16:56)
[2021-12-29] MEDS: SODIUM ZIRCONIUM CYCLOSILICATE 5 GM POWD.PACK PO SCH (08:00)
[2021-12-29] MEDS ORDERED: 0.9 % Sodium Chloride 250 ML IVC PRN (09:12)
[2021-12-29] MEDS ORDERED: *HR* Heparin 5,000 UNIT/ML VIAL SQ SCH (11:15)
[2021-12-29] MEDS: Insulin DETEMIR 100 UNIT/ML X5UNITS SUBQ SCH ×2 (11:46→20:59)
[2021-12-29] MEDS ORDERED: Acetaminophen 325 MG TABLET PO ONE (11:57)
[2021-12-29] MEDS: lisinopriL 5 MG TABLET PO SCH (14:56)
[2021-12-29] MEDS ORDERED: Insulin LISPRO 300 UNITS/3 ML VIAL SUBQ ONE (18:49)
[2021-12-29] MEDS: QUEtiapine Fumarate 25 MG TABLET PO SCH (20:49)
[2021-12-30] MEDS: Ipratropium/Albuterol Neb 3 ML IH SCH ×7 (00:02→20:17)
[2021-12-30 04:00] LABS: Basophils % 0.2 %; Hematocrit 26.9 % (37.5-50.1); Hemoglobin 7.8 g/dL (12.9-16.9); Immature Granulocytes % 1.1 % (0-4); Lymphocytes # 0.1 K/mcL (0.6-4.6); Lymphocytes % 2.1 %; Mean Corpuscular Hemoglobin 31.5 pg (28.0-33.3); Mean Corpuscular Volume 108.5 fL (83.0-100.0); Monocytes # 0.4 K/mcL (0.0-1.3); Monocytes % 5.6 %; Nucleated Red Blood Cells 0.6 /100 WBC (0); Platelet Count 147 K/mcL (140-400); Red Blood Count 2.48 M/mcL (4.19-5.50); Red Cell Distribution Width 21.2 % (11.5-14.5); White Blood Count 6.6 K/mcL (4.3-11.1)
[2021-12-30 04:22] LABS: Calcium 9.4 mg/dL (8.6-10.3); Potassium 5.1 mEq/L (3.5-5.1)
[2021-12-30] MEDS: *HR* Heparin 5,000 UNIT/ML VIAL SQ SCH ×3 (04:56→21:21)
[2021-12-30] MEDS: Levothyroxine 25 MCG TABLET PO SCH (05:10)
[2021-12-30] MEDS: Insulin DETEMIR 100 UNIT/ML X5UNITS SUBQ SCH ×2 (07:39→20:39)
[2021-12-30] MEDS: Insulin LISPRO 300 UNITS/3 ML VIAL SUBQ SCH ×4 (07:40→20:40)
[2021-12-30] MEDS: SODIUM ZIRCONIUM CYCLOSILICATE 5 GM POWD.PACK PO SCH (07:41)
[2021-12-30] MEDS: Renal Vitamin 1 CAP CAPSULE PO SCH (07:43)
[2021-12-30] MEDS: Furosemide 40 MG/4 ML VIAL IVP SCH ×2 (07:43→17:11)
[2021-12-30] MEDS: Metoprolol XL (24 HR) Succ 25 MG TAB.ER.24H PO SCH (07:43)
[2021-12-30] MEDS: Aspirin Enteric Coated 81 MG Tablet PO SCH (07:43)
[2021-12-30] MEDS: MethylPREDNISolone 40 MG/ML VIAL IVP SCH (07:44)
[2021-12-30] MEDS ORDERED: 0.9 % Sodium Chloride 250 ML IVC PRN (08:23)
[2021-12-30] MEDS: lisinopriL 5 MG TABLET PO SCH (14:27)
[2021-12-30] MEDS: Latanoprost 2.5 ML BOTTLE RIGHT EYE SCH (18:38)
[2021-12-30] MEDS: QUEtiapine Fumarate 25 MG TABLET PO SCH (20:39)
[2021-12-31] MEDS: Ipratropium/Albuterol Neb 3 ML IH SCH ×7 (00:06→23:52)
[2021-12-31] MEDS: *HR* Heparin 5,000 UNIT/ML VIAL SQ SCH ×3 (05:32→21:03)
[2021-12-31] MEDS: Levothyroxine 25 MCG TABLET PO SCH (05:42)
[2021-12-31] MEDS: Aspirin Enteric Coated 81 MG Tablet PO SCH (09:20)
[2021-12-31] MEDS: Metoprolol XL (24 HR) Succ 25 MG TAB.ER.24H PO SCH (09:21)
[2021-12-31] MEDS: Renal Vitamin 1 CAP CAPSULE PO SCH (09:21)
[2021-12-31] MEDS: Furosemide 40 MG/4 ML VIAL IVP SCH ×2 (09:22→17:02)
[2021-12-31] MEDS: SODIUM ZIRCONIUM CYCLOSILICATE 5 GM POWD.PACK PO SCH (09:22)
[2021-12-31] MEDS: Insulin DETEMIR 100 UNIT/ML X5UNITS SUBQ SCH (09:23)
[2021-12-31] MEDS: Insulin LISPRO 300 UNITS/3 ML VIAL SUBQ SCH ×4 (09:25→20:51)
[2021-12-31 10:57] LABS: Hematocrit 31.9 % (37.5-50.1)
[2021-12-31 11:12] LABS: Magnesium 1.9 mg/dL (1.6-2.6); Phosphorous 4.6 mg/dL (2.7-4.5); Potassium 4.9 mEq/L (3.5-5.1)
[2021-12-31] MEDS: lisinopriL 5 MG TABLET PO SCH (12:27)
[2021-12-31] MEDS: QUEtiapine Fumarate 25 MG TABLET PO SCH (20:49)
[2021-12-31] MEDS ORDERED: Insulin DETEMIR 100 UNIT/ML X5UNITS SUBQ SCH (21:00)
[2021-12-31] MEDS: Latanoprost 2.5 ML BOTTLE RIGHT EYE SCH (21:03)
[2021-12-31] MEDS ORDERED: *HR* HYDROcodone/Acet 10/325 mg TABLET PO ONE (22:20)
[2022-01-01 01:22] LABS: Hematocrit 29.9 % (37.5-50.1); Hemoglobin 8.7 g/dL (12.9-16.9)
[2022-01-01 01:32] LABS: Calcium 8.7 mg/dL (8.6-10.3); Magnesium 1.6 mg/dL (1.6-2.6); Phosphorous 4.9 mg/dL (2.7-4.5); Potassium 5.6 mEq/L (3.5-5.1)
[2022-01-01] MEDS: Ipratropium/Albuterol Neb 3 ML IH SCH ×6 (03:38→23:43)
[2022-01-01] MEDS: Levothyroxine 25 MCG TABLET PO SCH (06:06)
[2022-01-01] MEDS: *HR* Heparin 5,000 UNIT/ML VIAL SQ SCH ×4 (06:07→20:51)
[2022-01-01] MEDS: Insulin LISPRO 300 UNITS/3 ML VIAL SUBQ SCH ×4 (07:11→20:49)
[2022-01-01] MEDS: Renal Vitamin 1 CAP CAPSULE PO SCH (07:40)
[2022-01-01] MEDS: Furosemide 40 MG/4 ML VIAL IVP SCH ×2 (07:40→16:13)
[2022-01-01] MEDS: Aspirin Enteric Coated 81 MG Tablet PO SCH (07:40)
[2022-01-01] MEDS: SODIUM ZIRCONIUM CYCLOSILICATE 5 GM POWD.PACK PO SCH (07:41)
[2022-01-01] MEDS: Metoprolol XL (24 HR) Succ 25 MG TAB.ER.24H PO SCH (08:00)
[2022-01-01] MEDS ORDERED: 0.9 % Sodium Chloride 250 ML IVC PRN (08:47)
[2022-01-01] MEDS: lisinopriL 5 MG TABLET PO SCH (15:09)
[2022-01-01] MEDS ORDERED: Nystatin Ointment 15 GM TUBE TP PRN (16:50)
[2022-01-01] MEDS ORDERED: Nystatin POWDER 30 GM BOTTLE TP PRN (16:50)
[2022-01-01] MEDS: Latanoprost 2.5 ML BOTTLE RIGHT EYE SCH (17:07)
[2022-01-01] MEDS: QUEtiapine Fumarate 25 MG TABLET PO SCH (20:47)
[2022-01-01] MEDS ORDERED: Insulin DETEMIR 100 UNIT/ML X5UNITS SUBQ SCH (21:00)
[2022-01-02] MEDS: Ipratropium/Albuterol Neb 3 ML IH SCH ×4 (03:41→16:39)
[2022-01-02 04:53] LABS: Calcium 8.6 mg/dL (8.6-10.3); Magnesium 1.7 mg/dL (1.6-2.6); Phosphorous 5.1 mg/dL (2.7-4.5); Potassium 4.9 mEq/L (3.5-5.1)
[2022-01-02] MEDS: *HR* Heparin 5,000 UNIT/ML VIAL SQ SCH ×2 (05:02→14:37)
[2022-01-02] MEDS: Levothyroxine 25 MCG TABLET PO SCH (05:08)
[2022-01-02 07:51] VITALS: O2SAT 100
[2022-01-02] MEDS: Insulin LISPRO 300 UNITS/3 ML VIAL SUBQ SCH ×3 (08:11→17:13)
[2022-01-02] MEDS: Renal Vitamin 1 CAP CAPSULE PO SCH (08:12)
[2022-01-02] MEDS: Aspirin Enteric Coated 81 MG Tablet PO SCH (08:12)
[2022-01-02] MEDS: SODIUM ZIRCONIUM CYCLOSILICATE 5 GM POWD.PACK PO SCH (08:12)
[2022-01-02] MEDS: Metoprolol XL (24 HR) Succ 25 MG TAB.ER.24H PO SCH (08:12)
[2022-01-02] MEDS: Furosemide 40 MG/4 ML VIAL IVP SCH ×2 (08:15→17:12)
[2022-01-02] MEDS: lisinopriL 5 MG TABLET PO SCH (12:02)
[2022-01-02 16:36] VITALS: BP 110/64; PULSE 96; TEMP 98.9
[2022-01-02] MEDS: Latanoprost 2.5 ML BOTTLE RIGHT EYE SCH (17:13)
== END 2022-01-02 18:35 | DRG 280 ==
LOC: 2ANU 09:15 → EMEROOARM 09:15 → SUATTDRO 23:50 → 2ANU 12-28 01:30 → SUATTDRO 12-28 15:31
PROVIDERS: ADMIT Internal Medicine; ATTEND Internal Medicine

== ENCOUNTER 2022-04-22 09:41 | Inpatient (IN) ==
[2022-04-22 10:35] LABS: Basophils # 0.1 K/mcL (0.0-0.2); Basophils % 0.7 %; Eosinophils # 0.1 K/mcL (0.0-0.6); Eosinophils % 1.1 %; Hematocrit 35.8 % (37.5-50.1); Hemoglobin 10.4 g/dL (12.9-16.9); Immature Granulocytes % 0.7 % (0-4); Lymphocytes # 0.3 K/mcL (0.6-4.6); Lymphocytes % 4.6 %; Mean Corpuscular HGB Conc 29.1 g/dL (31.6-35.5); Mean Corpuscular Hemoglobin 30.4 pg (28.0-33.3); Mean Corpuscular Volume 104.7 fL (83.0-100.0); Mean Platelet Volume 10.1 fL (9.4-12.4); Monocytes # 0.7 K/mcL (0.0-1.3); Monocytes % 9.9 %; Neutrophils # 6.1 K/mcL (1.6-8.9); Nucleated Red Blood Cells 0.3 /100 WBC (0); Platelet Count 134 K/mcL (140-400); Red Blood Count 3.42 M/mcL (4.19-5.50); Red Cell Distribution Width 20.5 % (11.5-14.5); White Blood Count 7.3 K/mcL (4.3-11.1)
[2022-04-22 10:39] LABS: VBG HCO3 30 mEq/L (21-27); VBG PCO2 72 mmHg (41-51); VBG PH 7.22 pH Units (7.32-7.42); VBG PO2 65 mmHg (25-50)
[2022-04-22 11:32] LABS: Bilirubin,Urine Large (Negative); Blood,Urine Large (Negative); Clarity,Urine Cloudy (Clear); Color,Urine Brown (Yellow); Glucose,Urine (UA) 100 mg/dL (Normal); Ketones,Urine 15 mg/dL (Negative); Leukocyte Esterase,Urine Large (Negative); Nitrite,Urine Negative (Negative); Protein,Urine >=300 mg/dL (Neg-Trace); Urobilinogen,Urine Normal (Normal)
[2022-04-22 11:47] LABS: Bacteria,Urine Moderate per hpf (None-Few); RBC,Urine 15-30 per hpf (0-3); WBC,Urine TNTC per hpf (0-3)
[2022-04-22 11:49] LABS: Squamous Epithelial Cell,Urine Few per hpf (None-Few)
[2022-04-22 12:14] LABS: Albumin 3.6 g/dL (3.5-5.7); Albumin/Globulin Ratio 1.2 (1.1-2.2); Bilirubin,Total 0.6 mg/dL (0.3-1.0); Calcium 9.8 mg/dL (8.6-10.3); Globulin 2.9 g/dL (2.4-3.5); Potassium 5.2 mEq/L (3.5-5.1); Total Protein 6.5 g/dL (6.4-8.9)
[2022-04-22] MEDS ORDERED: Naloxone 0.4 MG/ML INJ IVP PRN (15:15)
[2022-04-22] MEDS ORDERED: D5% in Water 1,000 ML IVC PRN (15:49)
[2022-04-22] MEDS ORDERED: Dextrose Gel 15 GM/37.5 ML TUBE PO PRN ×2 (15:49)
[2022-04-22] MEDS ORDERED: *HR* Dextrose 50 % in Water (Syg) 50 ML SYRINGE IVP PRN (15:49)
[2022-04-22] MEDS: Insulin LISPRO 300 UNITS/3 ML VIAL SUBQ SCH ×2 (16:37→20:08)
[2022-04-22] MEDS: *HR* Heparin 5,000 UNIT/ML VIAL SQ SCH (17:37)
[2022-04-22] MEDS: traZODone 50 MG TABLET PO SCH (20:08)
[2022-04-22] MEDS: QUEtiapine Fumarate 25 MG TABLET PO SCH (20:08)
[2022-04-22] MEDS: Acetaminophen 325 MG TABLET PO PRN (21:53)
[2022-04-22] MEDS: Ondansetron 4 MG/2 ML VIAL IVP PRN (22:13)
[2022-04-23] MEDS ORDERED: *HR* Promethazine 25 MG/ML VIAL IM ONE (00:58)
[2022-04-23] MEDS: Ondansetron 4 MG/2 ML VIAL IVP PRN ×2 (04:18→19:06)
[2022-04-23] MEDS: Levothyroxine 25 MCG TABLET PO SCH (05:26)
[2022-04-23] MEDS: *HR* Heparin 5,000 UNIT/ML VIAL SQ SCH ×2 (05:26→17:43)
[2022-04-23] MEDS ORDERED: 0.9 % Sodium Chloride 250 ML IVC PRN (06:11)
[2022-04-23] MEDS ORDERED: Ethyl Chloride Spray Bottle (104 SPRAY/BOTTLE) TP PRN ×2 (06:11→08:11)
[2022-04-23] MEDS ORDERED: 0.9 % Sodium Chloride 2,000 ML PRIME SCH (06:15)
[2022-04-23] MEDS: Insulin LISPRO 300 UNITS/3 ML VIAL SUBQ SCH ×4 (08:04→20:42)
[2022-04-23] MEDS ORDERED: cefTRIAXone 1,000 MG in 0.9 % Sodium Chloride 10 ML IVP SCH (09:00)
[2022-04-23] MEDS: lisinopriL 5 MG TABLET PO SCH (09:00)
[2022-04-23 14:05] LABS: Hepatitis B Surface Antigen Nonreactive (Nonreactive)
[2022-04-23] MEDS: Latanoprost 2.5 ML BOTTLE RIGHT EYE SCH (14:25)
[2022-04-23] MEDS: Aspirin Enteric Coated 81 MG Tablet PO SCH (14:25)
[2022-04-23] MEDS: Metoprolol XL (24 HR) Succ 25 MG TAB.ER.24H PO SCH (14:25)
[2022-04-23 14:44] LABS: Hepatitis B Surface Antibody < 3.10 mIU/mL
[2022-04-23] MEDS: Acetaminophen 325 MG TABLET PO PRN (14:50)
[2022-04-23] MEDS: Ampicillin/Sulbactam 1,500 MG in 0.9 % Sodium Chloride Mini Bag 100 ML IVPB SCH (17:45)
[2022-04-23] MEDS: Melatonin 3 MG TABLET PO PRN (20:42)
[2022-04-23] MEDS: QUEtiapine Fumarate 25 MG TABLET PO SCH (20:42)
[2022-04-23] MEDS: traZODone 50 MG TABLET PO SCH (20:42)
[2022-04-23] MEDS ORDERED: Morphine Sulfate 2 MG/ML SYRINGE IVP ONE (22:26)
[2022-04-23] MEDS ORDERED: QUEtiapine Fumarate 25 MG TABLET PO ONE (22:55)
[2022-04-24] MEDS: Ampicillin/Sulbactam 1,500 MG in 0.9 % Sodium Chloride Mini Bag 100 ML IVPB SCH ×2 (04:51→17:04)
[2022-04-24] MEDS: Levothyroxine 25 MCG TABLET PO SCH (04:51)
[2022-04-24] MEDS: *HR* Heparin 5,000 UNIT/ML VIAL SQ SCH ×2 (04:57→17:04)
[2022-04-24] MEDS: Metoprolol XL (24 HR) Succ 25 MG TAB.ER.24H PO SCH (08:09)
[2022-04-24] MEDS: lisinopriL 5 MG TABLET PO SCH (08:09)
[2022-04-24] MEDS: QUEtiapine Fumarate 25 MG TABLET PO SCH (08:09)
[2022-04-24] MEDS: Latanoprost 2.5 ML BOTTLE RIGHT EYE SCH (08:10)
[2022-04-24] MEDS: Aspirin Enteric Coated 81 MG Tablet PO SCH (08:10)
[2022-04-24] MEDS: Insulin LISPRO 300 UNITS/3 ML VIAL SUBQ SCH ×4 (08:10→21:32)
[2022-04-24 12:08] LABS: Basophils % 0.6 %; Hemoglobin 9.6 g/dL (12.9-16.9); Red Cell Distribution Width 19.9 % (11.5-14.5)
[2022-04-24 12:09] LABS: Eosinophils # 0.1 K/mcL (0.0-0.6); Eosinophils % 1.1 %; Hematocrit 33.2 % (37.5-50.1); Immature Granulocytes % 0.4 % (0-4); Lymphocytes # 0.4 K/mcL (0.6-4.6); Lymphocytes % 5.3 %; Mean Corpuscular HGB Conc 28.9 g/dL (31.6-35.5); Mean Corpuscular Hemoglobin 29.7 pg (28.0-33.3); Mean Corpuscular Volume 102.8 fL (83.0-100.0); Mean Platelet Volume 9.9 fL (9.4-12.4); Monocytes % 13.5 %; Neutrophils # 5.5 K/mcL (1.6-8.9); Platelet Count 111 K/mcL (140-400); Red Blood Count 3.23 M/mcL (4.19-5.50); Segmented Neutrophils % 79.1 %
[2022-04-24 12:27] LABS: Calcium 9.4 mg/dL (8.6-10.3); Magnesium 1.9 mg/dL (1.6-2.6); Potassium 5.1 mEq/L (3.5-5.1)
[2022-04-24] MEDS: Ondansetron 4 MG/2 ML VIAL IVP PRN (20:40)
[2022-04-24] MEDS ORDERED: *HR* Promethazine 25 MG/ML VIAL IM ONE (23:22)
[2022-04-24] MEDS: Melatonin 3 MG TABLET PO PRN (23:27)
[2022-04-24] MEDS: QUEtiapine Fumarate 100 MG TABLET PO SCH (23:28)
[2022-04-24] MEDS: traZODone 50 MG TABLET PO SCH (23:30)
[2022-04-25 02:57] LABS: Calcium 9.5 mg/dL (8.6-10.3)
[2022-04-25] MEDS: *HR* Heparin 5,000 UNIT/ML VIAL SQ SCH ×3 (06:40→16:45)
[2022-04-25] MEDS: Ondansetron 4 MG/2 ML VIAL IVP PRN (06:40)
[2022-04-25] MEDS: Ampicillin/Sulbactam 1,500 MG in 0.9 % Sodium Chloride Mini Bag 100 ML IVPB SCH ×2 (06:41→16:30)
[2022-04-25] MEDS: Levothyroxine 25 MCG TABLET PO SCH (06:41)
[2022-04-25] MEDS: lisinopriL 5 MG TABLET PO SCH (07:47)
[2022-04-25] MEDS: QUEtiapine Fumarate 25 MG TABLET PO SCH (07:47)
[2022-04-25] MEDS: Metoprolol XL (24 HR) Succ 25 MG TAB.ER.24H PO SCH (07:48)
[2022-04-25] MEDS: Aspirin Enteric Coated 81 MG Tablet PO SCH (07:48)
[2022-04-25] MEDS: Latanoprost 2.5 ML BOTTLE RIGHT EYE SCH (07:50)
[2022-04-25] MEDS: Insulin LISPRO 300 UNITS/3 ML VIAL SUBQ SCH ×4 (07:51→22:52)
[2022-04-25] MEDS: QUEtiapine Fumarate 100 MG TABLET PO SCH (22:25)
[2022-04-25] MEDS: Acetaminophen 325 MG TABLET PO PRN (22:25)
[2022-04-25] MEDS: traZODone 50 MG TABLET PO SCH (22:25)
[2022-04-25] MEDS: Melatonin 3 MG TABLET PO PRN (22:26)
[2022-04-26] MEDS: *HR* Heparin 5,000 UNIT/ML VIAL SQ SCH ×3 (06:37→21:39)
[2022-04-26] MEDS: Levothyroxine 25 MCG TABLET PO SCH (06:43)
[2022-04-26] MEDS: Ampicillin/Sulbactam 1,500 MG in 0.9 % Sodium Chloride Mini Bag 100 ML IVPB SCH ×2 (06:44→21:35)
[2022-04-26] MEDS: lisinopriL 5 MG TABLET PO SCH (08:01)
[2022-04-26] MEDS: Insulin LISPRO 300 UNITS/3 ML VIAL SUBQ SCH ×4 (08:01→21:37)
[2022-04-26] MEDS: Latanoprost 2.5 ML BOTTLE RIGHT EYE SCH (08:01)
[2022-04-26] MEDS: QUEtiapine Fumarate 25 MG TABLET PO SCH (08:02)
[2022-04-26] MEDS: Metoprolol XL (24 HR) Succ 25 MG TAB.ER.24H PO SCH (08:02)
[2022-04-26] MEDS: Aspirin Enteric Coated 81 MG Tablet PO SCH (08:02)
[2022-04-26] MEDS ORDERED: *HR* Heparin 10,000 UNIT/10 ML VIAL IV PRN (10:13)
[2022-04-26] MEDS ORDERED: Ethyl Chloride Spray Bottle (104 SPRAY/BOTTLE) TP PRN (10:13)
[2022-04-26] MEDS ORDERED: 0.9 % Sodium Chloride 250 ML IVC PRN (10:13)
[2022-04-26 17:58] LABS: Calcium 8.9 mg/dL (8.6-10.3); Potassium 4.9 mEq/L (3.5-5.1)
[2022-04-26] MEDS: QUEtiapine Fumarate 100 MG TABLET PO SCH (21:35)
[2022-04-26] MEDS: traZODone 50 MG TABLET PO SCH (21:35)
[2022-04-27] MEDS: Ampicillin/Sulbactam 1,500 MG in 0.9 % Sodium Chloride Mini Bag 100 ML IVPB SCH ×2 (06:48→18:11)
[2022-04-27] MEDS: Levothyroxine 25 MCG TABLET PO SCH (06:49)
[2022-04-27] MEDS: Insulin LISPRO 300 UNITS/3 ML VIAL SUBQ SCH ×4 (08:11→22:01)
[2022-04-27] MEDS: QUEtiapine Fumarate 25 MG TABLET PO SCH (09:23)
[2022-04-27] MEDS: Aspirin Enteric Coated 81 MG Tablet PO SCH (09:23)
[2022-04-27] MEDS: lisinopriL 5 MG TABLET PO SCH (09:24)
[2022-04-27] MEDS: Latanoprost 2.5 ML BOTTLE RIGHT EYE SCH (09:24)
[2022-04-27] MEDS: Metoprolol XL (24 HR) Succ 25 MG TAB.ER.24H PO SCH (09:24)
[2022-04-27 09:58] LABS: ABG Base Excess 7 mEq/L (-2 to 3); ABG HCO3 34 mEq/L (21-27); ABG Oxygen Saturation 88 % (95-98); ABG PCO2 66 mmHg (35-45); ABG PH 7.33 pH Units (7.32-7.45); ABG PO2 62 mmHg (85-104); ABG TCO2 36 mEq/L (20-26)
[2022-04-27] MEDS ORDERED: Haloperidol Lactate 5 MG/ML VIAL IVP ONE (14:55)
[2022-04-27] MEDS: *HR* Heparin 5,000 UNIT/ML VIAL SQ SCH (18:11)
[2022-04-27] MEDS: QUEtiapine Fumarate 100 MG TABLET PO SCH (20:09)
[2022-04-27] MEDS: traZODone 50 MG TABLET PO SCH (20:09)
[2022-04-27] MEDS: Melatonin 3 MG TABLET PO PRN (22:05)
[2022-04-28] MEDS: Ondansetron 4 MG/2 ML VIAL IVP PRN (01:55)
[2022-04-28] MEDS: Acetaminophen 325 MG TABLET PO PRN ×2 (01:55→14:15)
[2022-04-28] MEDS: Levothyroxine 25 MCG TABLET PO SCH (06:01)
[2022-04-28 06:13] LABS: Hemoglobin 9.8 g/dL (12.9-16.9); Mean Corpuscular Volume 99.4 fL (83.0-100.0); Platelet Count 124 K/mcL (140-400); Red Cell Distribution Width 19.1 % (11.5-14.5)
[2022-04-28 06:15] LABS: Basophils # 0.1 K/mcL (0.0-0.2); Basophils % 0.6 %; Eosinophils # 0.1 K/mcL (0.0-0.6); Hematocrit 33.7 % (37.5-50.1); Immature Granulocytes % 0.2 % (0-4); Lymphocytes # 0.3 K/mcL (0.6-4.6); Lymphocytes % 3.7 %; Mean Corpuscular HGB Conc 29.1 g/dL (31.6-35.5); Mean Corpuscular Hemoglobin 28.9 pg (28.0-33.3); Mean Platelet Volume 10.7 fL (9.4-12.4); Monocytes # 1.1 K/mcL (0.0-1.3); Monocytes % 12.8 %; Neutrophils # 7.3 K/mcL (1.6-8.9); Red Blood Count 3.39 M/mcL (4.19-5.50); Segmented Neutrophils % 81.7 %; White Blood Count 8.9 K/mcL (4.3-11.1)
[2022-04-28 06:22] LABS: Calcium 9.2 mg/dL (8.6-10.3); Phosphorous 7.1 mg/dL (2.7-4.5); Potassium 5.5 mEq/L (3.5-5.1)
[2022-04-28] MEDS: Latanoprost 2.5 ML BOTTLE RIGHT EYE SCH (08:10)
[2022-04-28] MEDS: Aspirin Enteric Coated 81 MG Tablet PO SCH (08:10)
[2022-04-28] MEDS: QUEtiapine Fumarate 25 MG TABLET PO SCH (08:10)
[2022-04-28] MEDS: *HR* Heparin 5,000 UNIT/ML VIAL SQ SCH ×2 (08:12→16:10)
[2022-04-28] MEDS: Insulin LISPRO 300 UNITS/3 ML VIAL SUBQ SCH ×4 (08:12→20:52)
[2022-04-28] MEDS: Metoprolol XL (24 HR) Succ 25 MG TAB.ER.24H PO SCH (08:13)
[2022-04-28] MEDS ORDERED: *HR* Heparin 10,000 UNIT/10 ML VIAL IV PRN (09:15)
[2022-04-28] MEDS ORDERED: 0.9 % Sodium Chloride 250 ML IVC PRN (09:15)
[2022-04-28] MEDS: lisinopriL 5 MG TABLET PO SCH (12:29)
[2022-04-28 15:56] VITALS: O2SAT 100
[2022-04-28 17:31] LABS: Adenovirus Not Detected (Not Detect); Bordetella Pertussis Not Detected (Not Detect); Chlamydophila pneumoniae Not Detected (Not Detect); Coronavirus 229E Not Detected (Not Detect); Coronavirus HKU1 Not Detected (Not Detect); Coronavirus NL63 Not Detected (Not Detect); Coronavirus OC43 Not Detected (Not Detect); Human Metapneumovirus Not Detected (Not Detect); Human Rhinovirus/Enterovirus Not Detected (Not Detect); Influenza A Subtype 2009 H1 Not Detected (Not Detect); Influenza B Not Detected (Not Detect); Mycoplasma pneumoniae Not Detected (Not Detect); Parainfluenza Virus 1 Not Detected (Not Detect); Parainfluenza Virus 2 Not Detected (Not Detect); Parainfluenza Virus 3 Not Detected (Not Detect); Parainfluenza Virus 4 Not Detected (Not Detect); Respiratory Syncytial Virus Not Detected (Not Detect); SARS-CoV-2 Not Detected (Not Detect)
[2022-04-28] MEDS: traZODone 50 MG TABLET PO SCH (20:53)
[2022-04-28] MEDS: QUEtiapine Fumarate 100 MG TABLET PO SCH (20:53)
[2022-04-29] MEDS: Acetaminophen 325 MG TABLET PO PRN (00:34)
[2022-04-29] MEDS: *HR* Heparin 5,000 UNIT/ML VIAL SQ SCH (06:17)
[2022-04-29] MEDS: Levothyroxine 25 MCG TABLET PO SCH (06:18)
[2022-04-29] MEDS: Aspirin Enteric Coated 81 MG Tablet PO SCH (09:49)
[2022-04-29] MEDS: QUEtiapine Fumarate 25 MG TABLET PO SCH (09:49)
[2022-04-29] MEDS: Latanoprost 2.5 ML BOTTLE RIGHT EYE SCH (09:55)
[2022-04-29] MEDS: lisinopriL 5 MG TABLET PO SCH (10:04)
[2022-04-29] MEDS: Metoprolol XL (24 HR) Succ 25 MG TAB.ER.24H PO SCH (10:06)
[2022-04-29] MEDS: Insulin LISPRO 300 UNITS/3 ML VIAL SUBQ SCH ×2 (10:16→11:46)
[2022-04-29 11:04] VITALS: BP 101/58; PULSE 107; TEMP 98.8
== END 2022-04-29 14:25 | DRG 280 ==
LOC: EMEROOARM 09:41 → 2NENU 09:41 → SUATTDRO 15:15
PROVIDERS: ADMIT Internal Medicine; ATTEND Internal Medicine